=== PATIENT | female | born 1990 | race Caucasian/White ===

== ENCOUNTER 2017-06-18 06:55 | Emergency (ER) | payer MEDICAID ==
[2017-06-18] MEDS ORDERED: BUPIVACAINE 0.5% PF 30 ML VIAL SUBQ STA (07:22)
[2017-06-18] MEDS ORDERED: BUPIVACAINE 0.5% PF 30 ML VIAL ONE ×2 (07:27→07:29)
--- NOTE | 2017-06-18 07:40 | ED Physician Documentation ---
History of Present Illness - Stated complaint Stated Complaint: SHOULDER PX - Chief complaint Chief Complaint: Ext Problem - Additonal information Additional information: hx from pt 26 f hx recurrent L shoulder dislocations awoke this AM with L shoulder dislocation no trauma no other concerns pmhx asthma all depakote denies preg NPO since last night Review of Systems : denies: Now EGA Musculoskeletal: reports: Joint pain PD PAST MEDICAL HISTORY - Present Medications Home Medications: Ambulatory Orders Medication Instructions Recorded Confirmed Ibuprofen [Motrin] 400 mg PO Q6H PRN #30 tablet 06/18/17 - Allergies Allergies/Adverse Reactions: Allergies Allergy/AdvReac Type Severity Reaction Status Date / Time divalproex sodium Allergy Hives Verified 06/18/17 07:00 [From Depakote] PD ED PE NORMAL - Vitals Vital signs reviewed: Yes - General General: Alert and oriented X 3, Other (crying in pain) - Cardiac Cardiac: RRR - Respiratory Respiratory: No respiratory distress, Clear bilaterally - Derm Derm: Normal color, Other (appears to have adhesive from recent IV in L AC) - Extremities Extremities: Other (step off L shoulder and palpable humeral head anterior, dec sensation to lat deltoid region which is new, rest of arm nl sensaton, string radial and ulnar pulses, + motor) - Neuro Neuro: Alert and oriented X 3, No motor deficit. No: No sensory deficit ( deltoid rgion dec sensation not new with this dislocation per pt) Results - Vitals Vitals: Vital Signs - 24 hr 06/18/17 06/18/17 06/18/17 06:58 09:11 09:15 Temperature 36.1 C L Heart Rate 85 59 L 66 Respiratory 22 16 17 Rate Blood Pressure 122/76 117/77 O2 Saturation 100 100 06/18/17 06/18/17 06/18/17 09:16 09:20 09:25 Temperature Heart Rate 69 63 68 Respiratory 12 19 13 Rate Blood Pressure 116/78 107/71 108/77 O2 Saturation 100 100 100 06/18/17 06/18/17 09:35 09:47 Temperature Heart Rate 62 65 Respiratory 12 14 Rate Blood Pressure 123/86 H 118/84 H O2 Saturation 100 100 Oxygen O2 Source Room air - Rads (name of study) L shoulder Radiology: See rad report (ant dislocation no fx) L shoulder 2 Radiology: See rad report (reduced, no fracture, hill sachs) Procedures - Reduction Body part reduced: Left, Shoulder Fracture or dislocation: Dislocation Anesthesia: Hematoma block, Dilaudid, Propofol Shoulder reduction technique: Traction - counter tract Reduction aftercare: NV intact (as before she has dec sensation to lateral deltoid but that was pre-existing and not new with this dislocation), Xray confirms reduction, Alignment improved, Sling, Patient tolerated well - Procedural sedation Sedation prep: Informed consent, Time out completed, Last meal, PE performed, AHA 1 - healthy, IV O2 monitor, ET CO2 monitor, RT present Sedation medications: dilaudid, propofol, given by MD Patient status during sedation: Responds to tactile, Vitals remained stable, Maintained airway, Recovered uneventfully Sedation recovery: Recovered uneventfully PD MEDICAL DECISION MAKING - ED course ED course: intra-articualr marcaine 0.5% 10 cc under sterile prep with inadequate relief gave dilaudid as well despite adequate pain control pt highly anxious and not able/willing to try reduction without sedation Departure - Departure Disposition: 01 Home, Self Care Clinical Impression: Shoulder dislocation, recurrent Qualifiers: Laterality: left Qualified Code(s): M24.412 - Recurrent dislocation, left shoulder Condition: Good Instructions: ED Dislocation Shoulder Redu, ED Sling Follow-Up: [facility] [Provider Group] Prescriptions: Ibuprofen [Motrin] 400 mg PO Q6H PRN #30 tablet PRN Reason: Pain Comments: The shoulder is back in joint. The long acting anesthetic I injected into your shoulder should help with the pain. You can also take motrin and tylenol and apply ice Wear the sling to prevent dislocating again - but be sure to do some easy range of motion pendulum circles as show to prevent scar tissue forming in your shoulder. You have some numbness to the outside of your shoulder indicates you my have nerve damage from your recurrent dislocations. Also there is a deformity to the shoulder bone called a HillSachs injury likely due to your recurrent dislocations as well Please follow up with orthopedics for further care
[2017-06-18] MEDS ORDERED: HYDROmorphone 1 MG/ML SYRINGE IM STA (07:44)
[2017-06-18] MEDS ORDERED: ONDANSETRON 4 MG/2 ML VIAL IM STA (07:45)
--- NOTE | 2017-06-18 07:57 | XRAY Preliminary Report ---
Exam: XR SHOULDER 2 VIEW LT IMPRESSION: Anterior inferior left humeral head dislocation. [facility] SITE ID: [id number]
--- NOTE | 2017-06-18 08:00 | XRAY Report ---
EXAM: LEFT SHOULDER RADIOGRAPHY EXAM DATE: 06/18/2017 07:43 AM. CLINICAL HISTORY: Recurrent dislocation. COMPARISON: None. TECHNIQUE: 2 views. FINDINGS: Bones: No fracture or bone lesion. Joints: The acromioclavicular joint is anatomically aligned. There is an anterior inferior dislocati on of the left humeral head with respect to the glenoid. Soft tissues: The included hemithorax is unremarkable. No soft tissue calcification IMPRESSION: Anterior inferior left humeral head dislocation. [facility] Referring Provider Line: [phone] SITE ID: [id number]
[2017-06-18] MEDS ORDERED: PROPOFOL 200 MG/20 ML VIAL IVP STA ×2 (08:39→10:00)
[2017-06-18 09:48] VITALS: BP 118/84
--- NOTE | 2017-06-18 10:07 | XRAY Preliminary Report ---
Exam: XR SHOULDER 1 VIEW LT IMPRESSION: 1. Anatomic alignment of the left shoulder status post reduction. 2. Hill-Sachs deformity. [facility] SITE ID: [id number]
--- NOTE | 2017-06-18 10:10 | XRAY Report ---
EXAM: LEFT SHOULDER RADIOGRAPHY EXAM DATE: 06/18/2017 09:40 AM. CLINICAL HISTORY: Post reduction. COMPARISON: Left shoulder radiograph dated 06/18/2017. TECHNIQUE: 3 views. FINDINGS: Bones: Cortical defect along the posterior margin of the left humeral head. Joints: The glenohumeral and acromioclavicular joints are normal. Soft tissues: The visualized hemithorax is unremarkable. No soft tissue swelling. IMPRESSION: 1. Anatomic alignment of the left shoulder status post reduction. 2. Hill-Sachs deformity. [facility] Referring Provider Line: [phone] SITE ID: [id number]
== END 2017-06-18 10:55 | disposition home or self-care (01) ==
LOC: ED 06:55
DX: M24.412 Recurrent dislocation, left shoulder (principal)
CPT/HCPCS: 23650; 73020; 73030; 94770; 96372; 99283; J1170

== ENCOUNTER 2017-07-17 07:55 | Emergency (ER) | payer MEDICAID ==
[2017-07-17 08:27] LABS: BILIRUBIN,URINE NEGATIVE (NEGATIVE); GLUCOSE, URINE (UA) NEGATIVE (NEGATIVE); KETONES,URINE (UA) NEGATIVE (NEGATIVE); LEUKOCYTE ESTERASE, URINE MODERATE (NEGATIVE); NITRITE,URINE POSITIVE (NEGATIVE); OCCULT BLOOD,URINE MODERATE (NEGATIVE); PH,URINE 6.5 PH (5.0-7.5); PROTEIN,URINE 30 mg/dL (NEGATIVE); UROBILINOGEN,URINE 1 (NORMAL) E.U./dL (NORMAL)
[2017-07-17 08:30] LABS: CLARITY,URINE CLOUDY (CLEAR); HCG UR QUAL NEGATIVE
[2017-07-17] MEDS ORDERED: CYCLOBENZAPRINE 10 MG TABLET PO STA (08:38)
[2017-07-17] MEDS ORDERED: cephALEXin 250 MG CAPSULE PO STA (08:38)
[2017-07-17] MEDS ORDERED: LIDOCAINE PATCH 5% TOP STA (08:38)
--- NOTE | 2017-07-17 08:41 | ED Physician Documentation ---
History of Present Illness - Stated complaint Stated Complaint: BACK PX - Chief complaint Chief Complaint: Back Pain - Additonal information Additional information: hx from pt 26 y/o f seen a few weeks ago for shoulder dislocation since then has been using her right arm primarily and so her back has been strained and stressed and she has painful burning to huong trap region extending down huong back no numbness no weakness no saddle anesthesia took elder s relief no incont also has UTI sx + R kidney pain s fever chills -and took two of a friends ab already Review of Systems Constitutional: denies: Fever, Chills Cardiac: denies: Chest pain / pressure Respiratory: denies: Dyspnea GI: denies: Abdominal Pain, Nausea, Vomiting : denies: Incontinent, Now EGA Musculoskeletal: reports: Back pain Neurologic: denies: Focal weakness, Numbness PD PAST MEDICAL HISTORY - Past Medical History Respiratory: Asthma Psych: Depression, Post traumatic stress disorder Musculoskeletal: Other - Past Surgical History Past Surgical History: Yes Ortho: Other - Present Medications Home Medications: Ambulatory Orders Medication Instructions Recorded Confirmed Carisoprodol [Soma] 350 mg PO Q8H PRN #15 tablet 07/17/17 Cephalexin [Keflex] 500 mg PO Q6H #28 capsule 07/17/17 Lidocaine Patch 5% [Lidoderm Patch] 1 each TOP DAILY PRN #10 patch 07/17/17 - Allergies Allergies/Adverse Reactions: Allergies Allergy/AdvReac Type Severity Reaction Status Date / Time divalproex sodium Allergy Hives Verified 07/17/17 08:02 [From [facility]] - Social History Does the pt smoke?: Yes Smoking Status: Current every day smoker Does the pt drink ETOH?: No Does the pt have substance abuse?: Yes Substance Use and Type: Marijuana - Immunizations Immunizations are current?: No PD ED PE NORMAL - Vitals Vital signs reviewed: Yes - Neck Neck: Supple, no meningeal sign - Cardiac Cardiac: RRR - Respiratory Respiratory: No respiratory distress, Clear bilaterally - Abdomen Abdomen: Soft, Non tender - Back Back: No spinal TTP, Other (diffuse soft tissue TTP and limityed ROm 2/2 same, no focal spine TTP redness or swelling). No: No CVA TTP (R CVA TTP) - Derm Derm: Normal color - Neuro Neuro: Alert and oriented X 3, scientific recruiter 2-12 intact, No motor deficit, No sensory deficit, Other (hip flex knee ext foot dorsi plantar and great toe ext all 5/5, denies saddle anesthesia, patellar DTR 1/4 huong, no clonus neg SLR huong) Results - Vitals Vitals: Vital Signs - 24 hr 07/17/17 07/17/17 07:57 08:50 Temperature 36.4 C L 36.5 C Heart Rate 94 95 Respiratory 16 18 Rate Blood Pressure 124/77 115/80 O2 Saturation 100 100 Oxygen O2 Source Room air - Labs Labs: Laboratory Tests 07/17/17 08:13 Urine Color YELLOW Urine Clarity CLOUDY Urine pH 6.5 Ur Specific [place] 1.020 Urine Protein 30 H Urine Glucose (UA) NEGATIVE Urine Ketones NEGATIVE Urine Occult Blood MODERATE H Urine Nitrite POSITIVE H Urine Bilirubin NEGATIVE Urine Urobilinogen 1 (NORMAL) Ur Leukocyte Esterase MODERATE H Urine RBC 6-10 H Urine WBC >25 H Ur Squamous Epith Cells RARE Squamous Urine Bacteria Moderate H Ur Microscopic Review INDICATED Urine Culture Comments INDICATED Urine HCG, Qual NEGATIVE PD MEDICAL DECISION MAKING - ED course ED course: few RBC on UA as well as infection - just finished menses - pain not c/w renal colic Departure - Departure Disposition: Home, Self Care Clinical Impression: Back pain Qualifiers: Back pain location: back pain in unspecified location Chronicity: acute Back pain laterality: bilateral Qualified Code(s): M54.9 - Dorsalgia, unspecified UTI (urinary tract infection) Qualifiers: Urinary tract infection type: acute pyelonephritis Qualified Code(s): N10 - Acute pyelonephritis Condition: Good Instructions: ED Neck Back Pain General, ED Kidney Infec Female Prescriptions: Carisoprodol [Soma] 350 mg PO Q8H PRN #15 tablet PRN Reason: muscle spasm Cephalexin [Keflex] 500 mg PO Q6H #28 capsule Lidocaine Patch 5% [Lidoderm Patch] 1 each TOP DAILY PRN #10 patch PRN Reason: Pain Comments: Drink plenty of fluids Take all the antibiotics as prescribed A urine culture will be run - if you need to be changed to another antibiotic, the ER staff will call you. Please follow up with your PMD for a repeat urine test after completing the antibiotics to be sure all the infection has cleared
[2017-07-17 08:48] LABS: BACTERIA,URINE Moderate /HPF (None Seen); SQUAMOUS EPITHELIAL CELL,UR RARE Squamous (<= Few)
[2017-07-17 08:52] VITALS: BP 115/80
== END 2017-07-17 09:11 | disposition home or self-care (01) ==
LOC: ED 07:55
DX: N10 Acute pyelonephritis (principal); M54.6 Pain in thoracic spine; J45.909 Unspecified asthma, uncomplicated; F17.200 Nicotine dependence, unspecified, uncomplicated
CPT/HCPCS: 81001; 81025; 87086; 99283; 99284; A9270; 81003

== ENCOUNTER 2017-09-07 09:58 | Emergency (ER) | payer MEDICAID ==
[2017-09-07 10:11] VITALS: BP 124/72
[2017-09-07] MEDS ORDERED: oxyCOD/ACETAMIN 5 MG/325 MG TABLET PO STA (10:55)
--- NOTE | 2017-09-07 10:57 | ED Physician Documentation ---
History of Present Illness - Stated complaint Stated Complaint: TOOTH PX/FEMALE - Chief complaint Chief Complaint: Heent - Additonal information Additional information: hx from pt 27 female denies preg 2 days s/p wisdom tooth removal on antibiotics and motrin states pain has been severe no fever states cannot go back to see her oral surgeon for the pain because she has state insurance Review of Systems Constitutional: denies: Fever Throat: reports: Dental pain / toothache PD PAST MEDICAL HISTORY - Past Medical History Respiratory: Asthma Psych: Depression, Post traumatic stress disorder Musculoskeletal: Other - Past Surgical History Past Surgical History: Yes Ortho: Other - Present Medications Home Medications: Ambulatory Orders Medication Instructions Recorded Confirmed Carisoprodol [Soma] 350 mg PO Q8H PRN #15 tablet 07/17/17 Cephalexin [Keflex] 500 mg PO Q6H #28 capsule 07/17/17 Lidocaine Patch 5% [Lidoderm Patch] 1 each TOP DAILY PRN #10 patch 07/17/17 HYDROcod/ACETAM 5/325 [Hull 5/325] 1 ea PO Q6H PRN #10 tablet 09/07/17 - Allergies Allergies/Adverse Reactions: Allergies Allergy/AdvReac Type Severity Reaction Status Date / Time divalproex sodium Allergy Hives Verified 07/17/17 08:02 [From [facility]] - Social History Does the pt smoke?: Yes Smoking Status: Current every day smoker Does the pt drink ETOH?: No Does the pt have substance abuse?: Yes - Immunizations Immunizations are current?: No PD ED PE NORMAL - Vitals Vital signs reviewed: Yes - HEENT HEENT: Other (no trsimus, + huong mild to mod facial swelling as expected s/p wisdom removal, diff to see to base of extraction side but does not seem to be a dry socket, no drainage, no sublingual swelling) - Cardiac Cardiac: RRR - Respiratory Respiratory: No respiratory distress, Clear bilaterally Results - Vitals Vitals: Vital Signs - 24 hr 09/07/17 10:09 Temperature 37.3 C Heart Rate 100 Respiratory 18 Rate Blood Pressure 124/72 O2 Saturation 100 Oxygen O2 Source Room air Departure - Departure Disposition: 01 Home, Self Care Clinical Impression: Status post third molar tooth extraction Condition: Good Prescriptions: HYDROcod/ACETAM 5/325 [Hull 5/325] 1 ea PO Q6H PRN #10 tablet PRN Reason: Severe Pain Comments: Continue the antibiotics Continue to motrin May take vicodin sparingly as needed for severe pain. Please call your oral surgeon to let him/her know about your pain - they may want to see you in the office to be sure there is not a complication of surgery Discharge Date/Time: 09/07/17 11:24
== END 2017-09-07 11:24 | disposition home or self-care (01) ==
LOC: ED 09:58
DX: K08.89 Other specified disorders of teeth and supporting structures (principal); F17.200 Nicotine dependence, unspecified, uncomplicated; Z98.890 Other specified postprocedural states
CPT/HCPCS: 99283; A9270

== ENCOUNTER 2018-05-01 11:25 | Emergency (ER) | payer MEDICAID ==
[2018-05-01 11:37] VITALS: BP 138/89
== END 2018-05-01 13:30 | disposition left against medical advice (07) ==
LOC: ED 11:25
DX: Z53.21 Procedure and treatment not carried out due to patient leaving prior to being seen by health care provider (principal)

== ENCOUNTER 2018-05-02 10:30 | Emergency (ER) | payer MEDICAID ==
[2018-05-02 10:38] VITALS: BP 129/88
--- NOTE | 2018-05-02 11:38 | XRAY Report ---
Reason: pain. Procedure Date: 05/02/2018 Accession Number: [id number] / [id number] Procedure: XR - Ankle 3 View LT CPT Code: FULL RESULT: EXAM: LEFT ANKLE RADIOGRAPHY EXAM DATE: 05/02/2018 11:32 AM. CLINICAL HISTORY: Pain. Fall one month ago. COMPARISON: None. TECHNIQUE: 3 views. FINDINGS: Bones: No fractures or acute bone lesions. Rounded ossification adjacent to the tip of the fibula is consistent with a chronic, developmental ossicle. Joints: Normal. No effusion. No subluxations. The ankle mortise is normally aligned. Soft Tissues: Normal. No soft tissue swelling. IMPRESSION: Negative ankle radiography. [facility]
--- NOTE | 2018-05-02 12:12 | ED Physician Documentation ---
PD HPI LOWER EXT INJURY - Stated complaint Stated Complaint: ANKLE PX - Chief complaint Chief Complaint: Ext Problem - History obtained from History obtained from: Patient - History of Present Illness PD HPI LOW EXT INJURY LOCATION: Left, Ankle Type of injury: Twist Timing - onset: How many weeks ago (4) Timing - details: Still present Worsened by: Other (weight bearing) - Additional information Additional information: The patient is a 27-year-old female who twisted her left ankle about 4 weeks ago when she stepped in a hole with boots on. She presents now because of persistent pain at the posterior aspect of her ankle. The pain is worse with weightbearing. She states that her ankle sometimes gets swollen. She denies history of similar symptoms in the past. Review of Systems Constitutional: denies: Fever Musculoskeletal: reports: Joint pain (left posterior ankle.). denies: Back pain Neurologic: denies: Focal weakness, Numbness, Headache PD PAST MEDICAL HISTORY - Past Medical History Respiratory: Asthma Endocrine/Autoimmune: None Psych: Depression, Post traumatic stress disorder Musculoskeletal: Other - Past Surgical History Past Surgical History: Yes Ortho: Other - Present Medications Home Medications: Ambulatory Orders Medication Instructions Recorded Confirmed No Known Home Medications 05/01/18 05/01/18 - Allergies Allergies/Adverse Reactions: Allergies Allergy/AdvReac Type Severity Reaction Status Date / Time divalproex sodium Allergy Hives Verified 05/02/18 10:38 [From Depakote] - Social History Does the pt smoke?: Yes Smoking Status: Current every day smoker Does the pt drink ETOH?: No Does the pt have substance abuse?: Yes - Immunizations Immunizations are current?: Yes PD ED PE NORMAL - Vitals Vital signs reviewed: Yes (normal) - General General: Alert and oriented X 3, Well developed/nourished - HEENT HEENT: Atraumatic - Respiratory Respiratory: No respiratory distress - Back Back: No spinal TTP - Derm Derm: No rash - Extremities Extremities: No deformity, No edema, No calf tenderness / cord, Other (There is tenderness to palpation over the distal Achilles tendon, without tenderness defect palpated. There is no discoloration, and distal neurovascular is intact.) - Neuro Neuro: Alert and oriented X 3, No motor deficit, No sensory deficit Results - Vitals Vitals: Oxygen O2 Source Room air - Rads (name of study) Left ankle Radiology: Prelim report reviewed, EMP read contemporaneously, See rad report (Normal ankle radiography.) PD MEDICAL DECISION MAKING - ED course Complexity details: reviewed old records, reviewed results, re-evaluated patient, considered differential, d/w patient ED course: The patient's presentation is most consistent with a left Achilles tendon sprain. X-ray of the ankle reveals no bony abnormality. The Achilles tendon is intact with no evidence of rupture. Treatment in the emergency department included application of an ankle air splint. I discussed with her the expected course of healing, symptomatic treatment and outpatient follow-up, as well as potentially worrisome signs or symptoms that should prompt reevaluation in the emergency department. Departure - Departure Disposition: 01 Home, Self Care Clinical Impression: Strain of left Achilles tendon Qualifiers: Encounter type: initial encounter Qualified Code(s): S86.012A - Strain of left Achilles tendon, initial encounter Condition: Stable Instructions: ED Sprain Ankle Comments: Use the air splint if it provides comfort. Keep your left leg elevated as much the time as possible. You can use Tylenol or ibuprofen for anti-inflammatory effect. Follow-up with a primary physician, or return to the emergency department if you develop increasing pain or swelling of your ankle, or otherwise worsening symptoms. Discharge Date/Time: 05/02/18 12:24
== END 2018-05-02 12:24 | disposition home or self-care (01) ==
LOC: ED 10:30
DX: F17.200 Nicotine dependence, unspecified, uncomplicated (principal); S86.012A Strain of left Achilles tendon, initial encounter; X50.1XXA Overexertion from prolonged static or awkward postures, initial encounter; W18.42XA Slipping, tripping and stumbling without falling due to stepping into hole or opening, initial encounter
CPT/HCPCS: 99282; 99283

== ENCOUNTER 2018-06-14 08:00 | Outpatient (CLI) | payer MEDICAID | END 2018-06-14 23:59 | disposition home or self-care (01) | LOC: LAB.R 08:00 | PROVIDERS: ATTEND Nurse Practitioner Obstetrics & Gynecology | DX: Z36.89 Encounter for other specified antenatal screening (principal) | CPT/HCPCS: 87491; 87591 ==

== ENCOUNTER 2018-06-15 12:42 | Outpatient (CLI) | payer MEDICAID ==
--- NOTE | 2018-06-16 11:29 | Ultrasound Report ---
Reason: TEST POSITIVE Procedure Date: 06/15/2018 Accession Number: [id number] / [id number] Procedure: US - OB First Trimester CPT Code: FULL RESULT: EXAM: FIRST TRIMESTER OBSTETRIC ULTRASOUND (Less than 11 weeks) EXAM DATE: 06/15/2018 01:16 PM. CLINICAL HISTORY: TEST POSITIVE. LMP: 04/02/2018. COMPARISONS: None. TECHNIQUE: Transabdominal and transvaginal ultrasound examination with static image documentation. CLINICAL DATES: EGA 10 weeks 4 days with JAMIR 01/07/2019 based on LMP. ASSESSMENT: Gestational Sac: Single intrauterine. Embryo: CRL (crown-rump length) 28.2 mm = 9 weeks 5 days. Cardiac activity: 169 beats per minute. Yolk sac: None detected mm. Amniotic fluid: Not accurately assessed at this gestational age. Early placenta: Not visible at this gestational age. Other: No perigestational fluid collection demonstrated. MATERNAL STRUCTURES: Uterus: Anteverted. Unremarkable. Cervix: Closed. Right Ovary/Adnexa: Ovary not seen. No adnexal abnormality. Limitation secondary to bowel gas. Left Ovary/Adnexa: The ovary measures 3.5 x 2.8 x 2.4 cm, volume 4.2 cc. Unremarkable. Free Fluid: None. Other: None. IMPRESSION: 1. Single viable intrauterine at EGA 9 weeks 5 days with JAMIR 01/13/2019 based on crown-rump length, which is concordant with clinical dates. 2. Assigned dating is JAMIR 01/07/2019 based on LMP. 3. No complications such as a subchorionic hemorrhage. 4. Normal left ovary. Right ovary not seen. Otherwise, both adnexa are normal. [facility]
== END 2018-06-15 12:43 | disposition home or self-care (01) ==
LOC: DI 12:42
PROVIDERS: ATTEND Nurse Practitioner Obstetrics & Gynecology
DX: Z32.01 Encounter for pregnancy test, result positive (principal)
CPT/HCPCS: 76801

== ENCOUNTER 2018-09-06 07:47 | Emergency (ER) | payer MEDICAID ==
--- NOTE | 2018-09-06 08:43 | ED Physician Documentation ---
PD HPI URI - Stated complaint Stated Complaint: FLU LIKE SYMPTOMS - Chief complaint Chief Complaint: Resp - History obtained from History obtained from: Patient - History of Present Illness Timing - onset: How many days ago (4) Timing duration: Days (4) Timing details: Still present Associated symptoms: Nasal congestion, Sore throat, Productive cough Contributing factors: Sick contact (son) - Additional information Additional information: The patient is a 22-year-old female at 6 months gestation, who presents with cough of 4 days duration. Her cough is productive of sputum, and she reports associated shortness of breath. She complains of congestion, sore throat, and bilateral earaches. She denies fever, abdominal pain, nausea or vomiting. Her son has been sick with similar symptoms. She has not had a flu vaccination this year. Review of Systems Constitutional: denies: Fever Eyes: denies: Irritation Ears: reports: Ear pain Nose: reports: Congestion Throat: reports: Sore throat Cardiac: denies: Chest pain / pressure Respiratory: reports: Dyspnea, Cough GI: denies: Abdominal Pain, Nausea, Vomiting : reports: Now EGA (6 months gestation.). denies: Dysuria Skin: denies: Rash Musculoskeletal: denies: Back pain, Extremity pain Neurologic: denies: Headache PD PAST MEDICAL HISTORY - Past Medical History Respiratory: Asthma Endocrine/Autoimmune: None Psych: Depression, Post traumatic stress disorder Musculoskeletal: Other - Past Surgical History Past Surgical History: Yes Ortho: Other - Present Medications Home Medications: Ambulatory Orders Medication Instructions Recorded Confirmed Albuterol Oral Soln 09/06/18 Albuterol Sulf [Ventolin Hfa 1 - 2 puffs INH Q4HR PRN #1 inhaler 09/06/18 Inhaler] Benzonatate [Tessalon Perle] 100 - 200 mg PO TID PRN #30 capsule 09/06/18 - Allergies Allergies/Adverse Reactions: Allergies Allergy/AdvReac Type Severity Reaction Status Date / Time divalproex sodium Allergy Hives Verified 09/06/18 08:10 [From [facility]] - Social History Does the pt smoke?: Yes Smoking Status: Current every day smoker Does the pt drink ETOH?: No Does the pt have substance abuse?: Yes - Immunizations Immunizations are current?: Yes PD ED PE NORMAL - Vitals Vital signs reviewed: Yes (normal) - General General: Alert and oriented X 3, Well developed/nourished - HEENT HEENT: Atraumatic, Other (Mild vascular injection of TM's bilaterally, without bulging or fluid. Enlarged tonsils bilaterally, without exudates.) - Neck Neck: Supple, no meningeal sign, Other (Mildly enlarged anterior cervical nodes bilaterally.) - Cardiac Cardiac: RRR, No murmur - Respiratory Respiratory: Other (Inspiratory and expiratory wheezing bilaterally.) - Abdomen Abdomen: Soft, Non tender, Other (Gravid uterus, consistent with dates.) - Back Back: No CVA TTP - Derm Derm: No rash - Extremities Extremities: No edema, No calf tenderness / cord - Neuro Neuro: Alert and oriented X 3, No motor deficit, Normal speech Results - Vitals Vitals: Oxygen O2 Source Room air - Labs Labs: Laboratory Tests 09/06/18 08:50 Influenza A (Rapid) Negative Influenza B (Rapid) Negative PD MEDICAL DECISION MAKING - ED course Complexity details: reviewed results, re-evaluated patient, considered differential, d/w patient ED course: The patient's presentation is most consistent with acute asthmatic bronchitis. Her presentation does not suggest pneumonia, and I doubt pulmonary embolus. Influenza swab is negative. Treatment in the emergency department included DuoNeb nebulizer, which decreased her wheezing and improved her air movement. She is being discharged with prescriptions for albuterol inhaler and for Tessalon. I discussed with her the expected course of illness, symptomatic treatment and outpatient follow-up, as well as potentially worrisome signs or symptoms that should prompt reevaluation in the emergency department. Departure - Departure Disposition: 01 Home, Self Care Clinical Impression: Asthmatic bronchitis Qualifiers: Asthma severity: unspecified severity Asthma persistence: unspecified Asthma complication type: with acute exacerbation Qualified Code(s): J45.901 - Unspecified asthma with (acute) exacerbation Condition: Stable Instructions: ED Bronchitis Asthmatic Follow-Up: [facility] [Provider Group] Prescriptions: Albuterol Sulf [Ventolin Hfa Inhaler] 1 - 2 puffs INH Q4HR PRN #1 inhaler PRN Reason: Shortness Of Air/Wheezing Benzonatate [Tessalon Perle] 100 - 200 mg PO TID PRN #30 capsule PRN Reason: Cough Comments: Try to stop smoking cigarettes. Use albuterol 4 times daily as prescribed if needed for cough or wheezing. You can use Tessalon as prescribed if needed for cough. You can use ibuprofen, up to 800 mg 3 times daily for its anti-inflammatory effect. Follow-up with primary physician within 2 weeks. Call to schedule an appointment. Return to the emergency department if you develop increasing difficulty breathing, or otherwise worsening symptoms. Discharge Date/Time: 09/06/18 10:33
[2018-09-06] MEDS ORDERED: IPRATROPIUM/ALBUTEROL 3 ML NEB INH STA (08:45)
[2018-09-06 10:38] VITALS: BP 111/57
== END 2018-09-06 10:33 | disposition home or self-care (01) ==
LOC: ED 07:47
DX: O99.512 Diseases of the respiratory system complicating pregnancy, second trimester (principal); J45.901 Unspecified asthma with (acute) exacerbation; O99.332 Smoking (tobacco) complicating pregnancy, second trimester; Z3A.00 Weeks of gestation of pregnancy not specified
CPT/HCPCS: 87275; 87276; 94640; 99283

== ENCOUNTER 2018-09-10 16:05 | Outpatient (CLI) | payer MEDICAID ==
--- NOTE | 2018-09-11 10:52 | Ultrasound Report ---
Reason: ENCOUNTER FOR SCREENING,UNSPECIFIED Procedure Date: 09/10/2018 Accession Number: [id number] / [id number] Procedure: US - OB Detailed Eval CPT Code: FULL RESULT: EXAM: COMPLETE OBSTETRICAL ULTRASOUND EXAM DATE: 09/10/2018 06:00 PM. CLINICAL HISTORY: anatomic survey. COMPARISON: OB FIRST TRIMESTER 06/15/2018 1:16 PM. TECHNIQUE: Real-time sonographic evaluation of the fetus performed by the slitter operator. Multiple brand representative static images were saved for review. DATING: Established EGA 23 weeks 0 days with JAMIR 01/07/2019 based on last menstrual period. EGA 22 weeks 1 day with JAMIR 01/13/2019 based on prior ultrasound of 06/15/2018. EGA 21 weeks 5 days with JAMIR 01/16/2019 based on the current ultrasound. GENERAL EVALUATION Burch . Cardiac activity: 161 bpm. movement: Visualized. Presentation: Variable Placenta: Anterior position. No evidence for previa. Umbilical cord: 3 vessel cord. Central placental cord origin. Amniotic fluid: Subjectively normal. MVP 7 cm. BIOMETRY Bi-Parietal Diameter (BPD): 5.37 cm, 22 weeks 2 days Head Circumference (HC): 19.4 cm, 21 weeks 5 days Abdominal Circumference (AC): 17.2 cm, 22 weeks 1 day Femur Length (FL): 3.4 cm, 20 weeks 5 days Estimated Weight: 434 g, 4th percentile for assigned dating of 23 weeks 0 days based on last menstrual period. ANATOMY The intracranial structures, profile, face/nose/lips, spine, 4 chamber heart and outflow tracts, stomach, abdominal wall and cord insertion, diaphragm, kidneys, bladder, and extremities were visualized and demonstrate no abnormality. MATERNAL STRUCTURES Uterus: Unremarkable. Cervix: Long and closed. Transabdominal length 4.3 cm. Right ovary/adnexa: Unremarkable. Left ovary/adnexa: Unremarkable. Free fluid: None. IMPRESSION: 1. Burch live intrauterine with gestational age 23 weeks 0 days based on last menstrual period. 2. Estimated weight is at the 4th percentile for the assigned dating. Note: Estimated weight is at the 14th percentile using biometry of first ultrasound of 06/15/2018 (JAMIR 01/13/2019), suggesting EFW discrepancy with LMP may be due to incorrect dates. Consider follow-up exam in 6 to 8 weeks to confirm concordant interval growth. 3. Normal anatomic survey. No anatomic abnormalities are detected at this time. RADIA
== END 2018-09-10 16:06 | disposition home or self-care (01) ==
LOC: DI 16:05
PROVIDERS: ATTEND Nurse Practitioner Obstetrics & Gynecology
DX: Z36.9 Encounter for antenatal screening, unspecified (principal); Z3A.23 23 weeks gestation of pregnancy
CPT/HCPCS: 76811

== ENCOUNTER 2018-09-11 08:00 | Outpatient (CLI) | payer MEDICAID ==
[2018-09-11 19:04] LABS: BILIRUBIN,URINE NEGATIVE (NEGATIVE); GLUCOSE, URINE (UA) NEGATIVE (NEGATIVE); KETONES,URINE (UA) NEGATIVE (NEGATIVE); LEUKOCYTE ESTERASE, URINE NEGATIVE (NEGATIVE); NITRITE,URINE NEGATIVE (NEGATIVE); OCCULT BLOOD,URINE NEGATIVE (NEGATIVE); PH,URINE 6.5 PH (5.0-7.5); PROTEIN,URINE NEGATIVE (NEGATIVE); UROBILINOGEN,URINE 0.2 (NORMAL) E.U./dL (NORMAL)
[2018-09-11 19:07] LABS: CLARITY,URINE CLEAR (CLEAR)
[2018-09-11 19:19] LABS: BASOPHILS % (AUTO) 0.3 %; EOSINOPHILS # (AUTO) 0.2 10^3/uL (0.0-0.7); LYMPHOCYTES # (AUTO) 2.1 10^3/uL (1.5-3.5); LYMPHOCYTES % (AUTO) 18.6 %; MEAN CORPUSCULAR HEMOGLOBIN 32.3 pg (27.0-31.0); MEAN CORPUSCULAR HGB CONC 34.4 g/dL (32.0-36.0); MEAN CORPUSCULAR VOLUME 93.8 fL (81.0-99.0); MEAN PLATELET VOLUME 8.8 fL (7.9-10.8); MONOCYTES # (AUTO) 0.6 10^3/uL (0.0-1.0); MONOCYTES % (AUTO) 5.7 %; NEUTROPHILS # (AUTO) 8.3 10^3/uL (1.5-6.6); NEUTROPHILS % (AUTO) 73.4 %; PLT - PLATELET COUNT 360 10^3/uL (130-450); RED BLOOD COUNT 3.08 10^6/uL (4.20-5.40); RED CELL DISTRIBUTION WIDTH 13.1 % (12.0-15.0); WHITE BLOOD COUNT 11.3 x10^3/uL (4.8-10.8)
[2018-09-12 13:08] LABS: HEPATITIS B SURFACE ANTIGEN NON-REACTIVE (NON-REACTIVE)
[2018-09-12 15:05] LABS: HEPATITIS C ANTIBODY NON-REACTIVE (NON-REACTIVE); HIV AG/AB 4TH GEN NON-REACTIVE (NON-REACTIVE)
== END 2018-09-11 23:59 | disposition home or self-care (01) ==
LOC: LAB.N 08:00
PROVIDERS: ATTEND Nurse Practitioner Obstetrics & Gynecology
DX: Z36.89 Encounter for other specified antenatal screening (principal)
CPT/HCPCS: 36415; 81001; 81003; 81599; 82950; 85025; 86592; 86762; 86803; 86850; 86900; 86901; 87086; 87340; 87389

== ENCOUNTER 2018-11-11 10:52 | Outpatient (CLI) | payer MEDICAID ==
[2018-11-11] MEDS ORDERED: RHO(D) IMMUNE GLOBULIN 300 MCG SYRINGE IM SCH (11:05)
[2018-11-11 11:09] VITALS: BP 129/72
--- NOTE | 2018-11-11 12:39 | Ultrasound Report ---
Reason: Previous US with baby at the 4th % for size Procedure Date: 11/11/2018 Accession Number: [id number] / [id number] Procedure: US - OB F/U or Repeat CPT Code: FULL RESULT: EXAM: FOLLOW-UP OBSTETRICAL ULTRASOUND EXAM DATE: 11/11/2018 11:28 AM. CLINICAL HISTORY: Previous US with baby at the 4th percentage for size. COMPARISON: Obstetrical ultrasound 09/10/2018 and 06/15/2019. TECHNIQUE: Real-time sonographic evaluation of the fetus performed by the correctional substance abuse counselor. Additional transvaginal imaging to more accurately evaluate cervical length/placental position/etc. Multiple entry level sales representative static images were saved for review. DATING: EGA 31 weeks, 6 days with JAMIR 01/07/2019 based on LMP. EGA 31 weeks/0 days with JAMIR 01/13/2019 based on 06/15/2018 ultrasound. EGA 30 weeks/4 days with JAMIR 01/16/2019 based on 09/10/2018 ultrasound. EGA 31 weeks/3 days with JAMIR 01/10/2019 based on the current ultrasound. GENERAL EVALUATION Burch . Cardiac activity: 129 bpm. movement: Visualized. Presentation: Cephalic. Placenta: Anterior position. Amniotic fluid: Normal. OSITO 19.3 cm. MVP 7.9 cm. BIOMETRY Bi-Parietal Diameter (BPD): 8.06 cm, 32 weeks, 2 days Head Circumference (HC): 29.31 cm, 32 weeks, 2 days Abdominal Circumference (AC): 27.99 cm, 32 weeks, 0 days Femur Length (FL): 5.55 cm, 29 weeks, 1 day Estimated Weight: 1729 grams, 22 percentile. ANATOMY No abnormality evident on limited views. MATERNAL STRUCTURES No maternal abnormality evident on ultrasound performed for follow-up of biometry. IMPRESSION: 1. Burch live intrauterine with gestational age 31 weeks, 6 days based on LMP. 2. Estimated weight is within expected limits for assigned dating. 3. Normal interval growth compared to date of prior biometry. Estimated weight is at the 22nd percentile today, previously at 4th percentile on ultrasound 09/10/2018. 4. Normal amniotic fluid volume. RADIA
--- NOTE | 2018-11-16 13:23 | PROCEDURE REPORT ---
- HPI Diagnosis/Indication for NST: Intrauterine growth restriction Current EDU 01/07/19 Gestation 31 Weeks and 6 Days 4 Para 1 Vital Signs Temperature 98.8 F 11/11/18 11:08 Heart Rate 84 11/11/18 11:08 Respiratory Rate 20 11/11/18 11:08 Blood Pressure 129/72 11/11/18 11:08 O2 Saturation 99 11/11/18 11:08 Temperature 98.8 F 11/11/18 11:08 Heart Rate 84 11/11/18 11:08 Respiratory Rate 20 11/11/18 11:08 Blood Pressure 129/72 11/11/18 11:08 O2 Saturation 99 11/11/18 11:08 - NST Procedure NST Procedure Start Date 11/11/18 Start Time 10:57 Stop Time 11:28 Vibroacoustic Stimulation Used No Patient States Movement Yes - Results and Plan Findings/Impression: Category 1 NST, toco neg Plan: Normal NST, got rhogam in triage today, repeat US with EFW 22%ile, got social work consult. F/u in clinic in 2w.
== END 2018-11-11 12:50 | disposition home or self-care (01) ==
LOC: WFO 10:52 → FBP 10:54 → WFO 12:50
PROVIDERS: ATTEND Obstetrics & Gynecology
DX: O36.5930 Maternal care for other known or suspected poor fetal growth, third trimester, not applicable or unspecified (principal); Z3A.31 31 weeks gestation of pregnancy
CPT/HCPCS: 59025; 76816; 96372

== ENCOUNTER 2018-12-08 13:23 | Outpatient (CLI) | payer MEDICAID ==
[2018-12-08 14:26] LABS: BASOPHILS % (AUTO) 0.2 %; EOSINOPHILS # (AUTO) 0.1 10^3/uL (0.0-0.7); EOSINOPHILS % (AUTO) 0.7 %; LYMPHOCYTES # (AUTO) 1.5 10^3/uL (1.5-3.5); LYMPHOCYTES % (AUTO) 8.2 %; MEAN CORPUSCULAR HEMOGLOBIN 32.1 pg (27.0-31.0); MEAN CORPUSCULAR HGB CONC 34.4 g/dL (32.0-36.0); MEAN CORPUSCULAR VOLUME 93.4 fL (81.0-99.0); MEAN PLATELET VOLUME 8.7 fL (7.9-10.8); MONOCYTES # (AUTO) 1.7 10^3/uL (0.0-1.0); MONOCYTES % (AUTO) 9.5 %; NEUTROPHILS # (AUTO) 14.8 10^3/uL (1.5-6.6); NEUTROPHILS % (AUTO) 81.4 %; PLT - PLATELET COUNT 263 10^3/uL (130-450); RED BLOOD COUNT 3.13 10^6/uL (4.20-5.40); RED CELL DISTRIBUTION WIDTH 13.8 % (12.0-15.0); WHITE BLOOD COUNT 18.1 x10^3/uL (4.8-10.8)
[2018-12-08 14:27] LABS: MUDS CUTOFF CONCENTRATIONS CUTOFF CONC BELOW:
[2018-12-08 14:32] LABS: BILIRUBIN,URINE NEGATIVE (NEGATIVE); GLUCOSE, URINE (UA) NEGATIVE (NEGATIVE); KETONES,URINE (UA) NEGATIVE (NEGATIVE); LEUKOCYTE ESTERASE, URINE TRACE (NEGATIVE); NITRITE,URINE NEGATIVE (NEGATIVE); OCCULT BLOOD,URINE NEGATIVE (NEGATIVE); PH,URINE 6.5 PH (5.0-7.5); PROTEIN,URINE NEGATIVE (NEGATIVE); UROBILINOGEN,URINE 0.2 (NORMAL) E.U./dL (NORMAL)
[2018-12-08 14:38] LABS: BACTERIA,URINE Rare /HPF (None Seen); CLARITY,URINE CLEAR (CLEAR); RBC,URINE None Seen /HPF (0-5); SQUAMOUS EPITHELIAL CELL,UR MOD Squamous (<= Few)
[2018-12-08 14:40] LABS: ALBUMIN 2.8 g/dL (3.2-5.5); ALBUMIN/GLOBULIN RATIO 0.7 (1.0-2.2); ALKALINE PHOSPHATASE 137 IU/L (42-121); ALT ALANINE AMINOTRANSFERASE 11 IU/L (10-60); AST ASPARTATE AMINOTRANSFERASE 15 IU/L (10-42); BILIRUBIN,TOTAL 0.5 mg/dL (0.2-1.0); BUN - BLOOD UREA NITROGEN < 5 mg/dL (6-20); CALCIUM 8.8 mg/dL (8.5-10.3); CARBON DIOXIDE - CO2 21 mmol/L (21-32); CHLORIDE 104 mmol/L (101-111); CREATININE 0.5 mg/dL (0.4-1.0); GFR - MDRD 147 (>89); GLUCOSE 96 mg/dL (70-100); SODIUM 135 mmol/L (135-145); TOTAL PROTEIN 6.6 g/dL (6.7-8.2)
[2018-12-08 14:41] LABS: AMPHETAMINE SCREEN,URINE POSITIVE (NEGATIVE); BENZODIAZEPINES SCREEN, URINE NEGATIVE (NEGATIVE); COCAINE SCREEN URINE NEGATIVE (NEGATIVE); METHADONE SCREEN, URINE NEGATIVE (NEGATIVE); METHAMPHETAMINES SCREEN, URINE POSITIVE (NEGATIVE); OPIATE SCREEN, URINE NEGATIVE (NEGATIVE); OXYCODONE SCREEN, URINE NEGATIVE (NEGATIVE); PROPOXYPHENE SCREEN, URINE NEGATIVE (NEGATIVE); TRICYCLIC ANTIDEPRESSANT,URINE NEGATIVE (NEGATIVE)
[2018-12-08] MEDS ORDERED: SODIUM CHLORIDE FLUSH 0.9% 10 ML SYRINGE ONE (15:14)
[2018-12-08] MEDS ORDERED: FERRIC GLUCONATE 125 MG in SODIUM CHLORIDE 0.9% 100ML 100 ML IV ONE (16:00)
[2018-12-08 17:48] VITALS: BP 122/66
[2018-12-08 19:04] LABS: TRICHOMONAS VAGINALIS DNA NEGATIVE (NEGATIVE)
--- NOTE | 2018-12-13 15:59 | PROVIDER PROGRESS NOTE ---
- HPI Chief Complaint: Other (Back pain) Current : Current EDU 01/07/19 Gestation 35 Weeks and 5 Days 4 Para 1 Vital Signs Temperature 98.6 F 12/08/18 13:39 Heart Rate 120 H 12/08/18 13:39 Respiratory Rate 17 12/08/18 13:39 Blood Pressure 127/71 12/08/18 13:39 O2 Saturation 100 12/08/18 13:39 Temperature 98.8 F 12/08/18 17:30 Heart Rate 108 H 12/08/18 17:30 Respiratory Rate 16 12/08/18 17:30 Blood Pressure 122/66 12/08/18 17:30 O2 Saturation 100 12/08/18 17:30 - Exam GEN: NAD CV: RRR- tachycardic RES: CTAB ABD: Gravid, S&NT BACK: minimal CVA tenderness EXT: WWP PSYCH: appropriate affect NEURO: alert and oriented SVE FT/long/closed - Procedures OB Procedure Performed: NST Diagnosis/Indication for NST: Other NST Procedure: NST Procedure Start Date 12/08/18 Start Time 13:30 Stop Time 15:07 Vibroacoustic Stimulation Used No Patient States Movement Yes EFM 145 mod jem 15x15 accels one decel at 14:20 with 20 minutes RR tracing before and after decel TOCO: quiet Service Date of procedure: 12/08/18 Procedure Details: NST Cat I tracing Findings: EKG shows sinus tach Normal PIH labs Mild anemia TOX positive for meth and amphetamines UA suspicious for UTI - Plan Plan: Oanh is a 28 yo at 35w4d here with back pain c/f pyelonephritis and found to have tachycardia SOC: Sporadic care with initial US showing fetus at 8%ile. Had repeat that showed 22%ile. 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 Blames + meth on likely laced THC. No THC on tox screen. Meth use earlier in . TACHYCARDIA: Likely related to meth use EKG showed sinus tach Normal electrolytes Resolved with IV hydration UTI: Positive UA. Sent with Rx for cephalexin PNC: Sporadic care -GBS and GCCT collected today Bedside US showed vertex position Pt reports she will RTC this week. More than 60 minutes was spent with this patient, of whichmore than 50% was in face to face college and career counselor and plan of care
== END 2018-12-08 17:30 | disposition home or self-care (01) ==
LOC: WFO 13:23 → FBP 13:33 → WFO 17:30
PROVIDERS: ATTEND Obstetrics & Gynecology
DX: O99.89 Other specified diseases and conditions complicating pregnancy, childbirth and the puerperium (principal); M54.9 Dorsalgia, unspecified; R00.0 Tachycardia, unspecified; R82.90 Unspecified abnormal findings in urine; O36.8330 Maternal care for abnormalities of the fetal heart rate or rhythm, third trimester, not applicable or unspecified; O09.33 Supervision of pregnancy with insufficient antenatal care, third trimester; O09.73 Supervision of high risk pregnancy due to social problems, third trimester; O99.323 Drug use complicating pregnancy, third trimester; F15.90 Other stimulant use, unspecified, uncomplicated; F12.90 Cannabis use, unspecified, uncomplicated; O99.013 Anemia complicating pregnancy, third trimester; D64.9 Anemia, unspecified; Z3A.35 35 weeks gestation of pregnancy
CPT/HCPCS: 80053; 80306; 81001; 84443; 85025; 87086; 87181; 87491; 87591; 87661; 87797; 93005; 96365; 99214; J2916

== ENCOUNTER 2019-01-07 15:24 | Outpatient (CLI) | payer MEDICAID ==
[2019-01-07] MEDS ORDERED: SODIUM CHLORIDE FLUSH 0.9% 10 ML SYRINGE ONE (15:57)
[2019-01-07 17:56] VITALS: BP 120/76
== END 2019-01-07 17:30 | disposition home or self-care (01) ==
LOC: WFO 15:24 → FBP 15:25 → WFO 17:30
PROVIDERS: ATTEND Obstetrics & Gynecology
DX: Z53.9 Procedure and treatment not carried out, unspecified reason (principal)
CPT/HCPCS: 99213

== ENCOUNTER 2019-01-11 16:00 | Outpatient (CLI) | payer MEDICAID ==
[2019-01-11 16:12] VITALS: BP 135/81
--- NOTE | 2019-01-11 19:36 | Ultrasound Report ---
Reason: variable decels Procedure Date: 01/11/2019 Accession Number: [id number] / [id number] Procedure: US - OB Biophysical Profile CPT Code: FULL RESULT: EXAM: BIOPHYSICAL PROFILE EXAM DATE: 01/11/2019 07:09 PM. CLINICAL HISTORY: Variable decels. COMPARISON: OB F/U OR REPEAT 11/11/2018 11:28 AM. TECHNIQUE: Real-time sonographic evaluation of the fetus performed by the hris coordinator. Multiple footwear sales representative static images were saved for review. DATING: Established EGA 40 weeks 4 days with JAMIR 01/07/2019. GENERAL EVALUATION Burch . Cardiac activity: 141 bpm. movement: Visualized. Presentation: Cephalic. Placenta: Anterior position. Amniotic fluid: There is polyhydramnios. OSITO 29.3 cm. MVP 8.7 cm. BIOPHYSICAL PROFILE Breathing = 2 Movement = 2 Tone = 2 Amniotic Fluid = 2 Total 02/06 IMPRESSION: 1. Burch live intrauterine with gestational age 40 weeks 4 days based on established JAMIR. 2. Biophysical profile score 8 of 8. 3. Polyhydramnios with OSITO of 29.3 cm. RADIA
--- NOTE | 2019-01-15 15:38 | PROCEDURE REPORT ---
- HPI Diagnosis/Indication for NST: Other (pt presented for contractions) Current EDU 01/07/19 Gestation 40 Weeks and 4 Days 4 Para 1 Vital Signs Blood Pressure 136/96 H 01/11/19 16:09 Temperature 36.4 C L 01/11/19 16:11 Heart Rate 103 H 01/11/19 16:11 Respiratory Rate 20 01/11/19 16:11 Blood Pressure 135/81 H 01/11/19 16:11 O2 Saturation 100 01/11/19 16:11 - NST Procedure NST Procedure Start Time 13:30 Stop Time 15:07 - Results and Plan Findings/Impression: Pt was noted to have few decelerations with a reactive NST. For this reasion A BPP was done 02/06. but she was noted to have polyhydramneose. Plan: follow up in the office for evaluation adn schedule for induction.
== END 2019-01-11 19:04 | disposition home or self-care (01) ==
LOC: WFO 16:00 → FBP 16:02 → WFO 19:04
PROVIDERS: ATTEND Obstetrics & Gynecology
DX: O40.3XX0 Polyhydramnios, third trimester, not applicable or unspecified (principal); O36.8330 Maternal care for abnormalities of the fetal heart rate or rhythm, third trimester, not applicable or unspecified; Z3A.40 40 weeks gestation of pregnancy
CPT/HCPCS: 76819; 99214

== ENCOUNTER 2019-01-13 10:26 | Outpatient (CLI) | payer MEDICAID ==
[2019-01-13 10:41] VITALS: BP 118/96
--- NOTE | 2019-01-13 15:01 | PROCEDURE REPORT ---
- HPI Diagnosis/Indication for NST: Polyhydramnios Current EDU 01/07/19 Gestation 40 Weeks and 6 Days 2 Para 1 Vital Signs Temperature 36.6 C 01/13/19 10:40 Heart Rate 95 01/13/19 10:40 Respiratory Rate 16 01/13/19 10:40 Blood Pressure 118/96 H 01/13/19 10:40 O2 Saturation 100 01/13/19 10:40 Temperature 36.6 C 01/13/19 10:40 Heart Rate 95 01/13/19 10:40 Respiratory Rate 16 01/13/19 10:40 Blood Pressure 118/96 H 01/13/19 10:40 O2 Saturation 100 01/13/19 10:40 - NST Procedure NST Procedure Start Date 01/13/19 Start Time 10:35 Stop Time 11:00 Vibroacoustic Stimulation Used No Patient States Movement Yes - Results and Plan Findings/Impression: There is a reactive NST.This was read on 01/13/2009 Plan: Impression: 1. Intrauterine at 40 weeks and 6 days gestation 2. Polyhydramnios Plan: The patient is discharged to the office for further evaluation. She will need induction of labor sometime this week. She will have her cervix checked in the office to decide what might need to be done to start her labor.
== END 2019-01-13 11:15 | disposition home or self-care (01) ==
LOC: WFO 10:26 → FBP 10:30 → WFO 11:15
PROVIDERS: ATTEND Obstetrics & Gynecology
DX: O40.3XX0 Polyhydramnios, third trimester, not applicable or unspecified (principal); Z3A.40 40 weeks gestation of pregnancy
CPT/HCPCS: 59025

== ENCOUNTER 2019-01-13 19:10 | Outpatient (CLI) | payer MEDICAID ==
--- NOTE | 2019-01-13 19:52 | PROVIDER PROGRESS NOTE ---
- HPI Chief Complaint: Labor Check Current : The patient came in tonight complaining of a labor check. She stated that approximately 18 4500 hours she had leakage of fluid. I asked her if the fluid was clear she stated and it was pinkish.She feels pressure but has no contractions per se.She is on the schedule for an induction tomorrow morning. - Procedures NST Procedure: NST Procedure Start Time 10:35 Stop Time 11:00 Findings: O - Pelvic: The cervix is posteriorIt is thick it is approximately 2 cm dilated. The fetus is still high in the pelvis at about -3 presentation. Membranes are felt through the cervix bulging.Nitrazine was positive but Fern test was absolutely negative.No fluid was noted in the vagina.No bloody show is noted.No fluid on the perineum or on the pad.No contractions are noted on the monitor. The fetus is reactive. - Plan Plan: Impression: intrauterine at 40 weeks 6 days gestation Intact membranes Plan: I talked to the patient about possibly staying so we could either observe her overnight since she is for an induction in the morning. She would rather go home at this time. She was told to return if she has any more leakage of fluid or if she feels any other signs of labor.As long she does well we will see her backOn 01/14/2009 in the obstetric department at 0600 hrs and for her induction.
[2019-01-13 21:56] VITALS: BP 124/82
== END 2019-01-13 19:55 | disposition home or self-care (01) ==
LOC: WFO 19:10 → FBP 19:18 → WFO 19:55
PROVIDERS: ATTEND Obstetrics & Gynecology
DX: O40.3XX0 Polyhydramnios, third trimester, not applicable or unspecified (principal); Z3A.40 40 weeks gestation of pregnancy
CPT/HCPCS: 59025; 99213

== ENCOUNTER 2019-01-14 05:58 | Inpatient (IN) | payer MEDICAID ==
--- NOTE | 2019-01-13 13:23 | HISTORY & PHYSICAL EXAMINATION ---
Admit History - : 4 Parity: 1 : 2 Care: positive: [place] Risk/History: positive: Polyhydramnios (The patient is also used methamphetamines during her .She has also been fairly noncompliant and has missed almost all of her appointments.) Complications This : positive: Maternal drug use Smoking Status: Current every day smoker - Mother's Labs Mother's Blood Type: positive: A Mother's RH: positive: Negative (RhoGam was given on 11/12/2015) GBS: positive: Group B Step Negative Rubella Status: positive: Non-immune (The patient is a well-developed, well- nourished, 28-year-old female who is a 4 para 1-0-2-1.She presents at 41 weeks gestation. She has had only a couple of visits. She has used methamphetamines during her . She has smoked throughout her . She has known polyhydramnios. She is being admitted for induction of labor at 41 weeks gestationShe has had serial NSTs which have all been within normal.Because there was a couple of small variables noted on a NST on, she had a biophysical profile.This rendered a score of 8 out of 8. She had another NST on 01/13/2019 which was totally reactive without any decelerations. She did notes good movement.She is without any complaint today. We went through the risks, benefits, alternatives and complications of a Cytotec possible Pitocin induction. Questions encouraged and answered, she understood and consents were signed.) Meds/Allgy - Home Medications Home Medications: Ambulatory Orders Medication Instructions Recorded Confirmed Albuterol Oral Soln 09/06/18 Albuterol Sulf [Ventolin Hfa 1 - 2 puffs INH Q4HR PRN #1 inhaler 09/06/18 Inhaler] Benzonatate [Tessalon Perle] 100 - 200 mg PO TID PRN #30 capsule 09/06/18 - Allergies Allergies/Adverse Reactions: Allergies Allergy/AdvReac Type Severity Reaction Status Date / Time divalproex sodium Allergy Hives Verified 09/06/18 08:10 [facility] Review of Systems - Constitutional Constitutional: denies: Fatigue, Fever, Chills, Malaise - Eyes Eyes: denies: Pain, Irritation, Amaurosis, Blurred vision, Spots in vision - Ears, Nose & Throat Ears, Nose & Throat: denies: Ear pain, Hearing loss, Hearing aids, Tinnitus, Vertigo, Nosebleeds, Nasal congestion, Postnasal drainage, Sore throat, Hoarseness - Cardiovascular Cariovascular: denies: Irregular heart rate, Palpitations, Chest pain, Edema, Lightheadedness - Respiratory Respiratory: denies: Cough, Sputum production, Wheezing, Hemoptysis, Orthopnea - Gastrointestinal Gastrointestinal: denies: Abdominal pain, Constipation, Diarrhea, Change in bowel habits, Rectal bleeding, Nausea, Vomiting, Reflux/heartburn - Genitourinary Genitourinary: denies: Dysuria, Frequency, Urgency, Incontinence - Musculoskeletal Musculoskeletal: denies: Muscle pain, Muscle aches, Stiffness, Limited range of motion - Integumentary Integumentary: denies: Rash, Pruritis, Lesions, Lumps - Neurological Neurological: denies: Headache, Dizziness, Numbness, Memory problems, Abnormal gait, Seizures - Psychiatric Psychiatric: denies: Depression, Anxiety, Suicidal, Delusions - Endocrine Endocrine: denies: Polyuria, Polydypsia, Polyphagia, Intolerance to cold, Intolerance to heat - Hematologic/Lymphatic Hematologic/Lymphatic: denies: Anemia, Bruising, Petechiae, Blood clots, Bleeding tendencies Physical - Abdominal Exam : None - Monitoring Heart Rate Baseline: 130BPM Strip Review: positive: Category I - Vaginal Exam Membranes: positive: Membranes intact Dilation (in cm): 2 Effacement (%): 20 Station: positive: -3 Cervical Position: positive: Anterior Plan for Labor - Plan For Labor I expect patient to be DC'd or transferred within 96 hours.: Yes Plan for Labor: Impression: Intrauterine at 41 weeks gestation Polyhydramnios Plan: We are admitting the patient for an induction of labor.Since her cervix is quite long we will start with a dose of misoprostol. After that we will reassess to see if Pitocin can be's started at that time.
[~2019-01-14 05:58] MED LIST: LACTATED RINGERS 1,000 ML IV SCH; SODIUM CHLORIDE FLUSH 0.9% 10 ML SYRINGE IVP PRN; SODIUM CHLORIDE FLUSH 0.9% 10 ML SYRINGE IVP SCH
[2019-01-14] MEDS ORDERED: miSOPROStol 100 MCG TABLET VG SCH (07:00)
[2019-01-14] MEDS ORDERED: ONDANSETRON 4 MG/2 ML VIAL IVP PRN ×2 (07:01→15:25)
[2019-01-14] MEDS ORDERED: fentaNYL 100 MCG/2 ML VIAL IVP PRN (07:01)
[2019-01-14 07:17] LABS: BASOPHILS % (AUTO) 0.3 %; EOSINOPHILS # (AUTO) 0.2 10^3/uL (0.0-0.7); EOSINOPHILS % (AUTO) 1.8 %; HGB - HEMOGLOBIN 10.4 g/dL (12.0-16.0); LYMPHOCYTES # (AUTO) 2.6 10^3/uL (1.5-3.5); LYMPHOCYTES % (AUTO) 20.7 %; MEAN CORPUSCULAR HEMOGLOBIN 32.6 pg (27.0-31.0); MEAN CORPUSCULAR VOLUME 95.9 fL (81.0-99.0); MEAN PLATELET VOLUME 10.6 fL (7.9-10.8); MONOCYTES # (AUTO) 0.7 10^3/uL (0.0-1.0); MONOCYTES % (AUTO) 5.9 %; NEUTROPHILS # (AUTO) 8.8 10^3/uL (1.5-6.6); NEUTROPHILS % (AUTO) 70.3 %; PLT - PLATELET COUNT 293 10^3/uL (130-450); RED BLOOD COUNT 3.19 10^6/uL (4.20-5.40); RED CELL DISTRIBUTION WIDTH 13.7 % (12.0-15.0); WHITE BLOOD COUNT 12.5 x10^3/uL (4.8-10.8)
[2019-01-14 07:57] LABS: MUDS CUTOFF CONCENTRATIONS CUTOFF CONC BELOW:
[2019-01-14 08:17] LABS: AMPHETAMINE SCREEN,URINE NEGATIVE (NEGATIVE); BENZODIAZEPINES SCREEN, URINE NEGATIVE (NEGATIVE); COCAINE SCREEN URINE NEGATIVE (NEGATIVE); METHADONE SCREEN, URINE NEGATIVE (NEGATIVE); METHAMPHETAMINES SCREEN, URINE NEGATIVE (NEGATIVE); OPIATE SCREEN, URINE NEGATIVE (NEGATIVE); OXYCODONE SCREEN, URINE NEGATIVE (NEGATIVE); PROPOXYPHENE SCREEN, URINE NEGATIVE (NEGATIVE); TRICYCLIC ANTIDEPRESSANT,URINE NEGATIVE (NEGATIVE)
[2019-01-14] MEDS ORDERED: OXYTOCIN/SODIUM CHLORIDE 500 ML IV ONE (08:17)
[2019-01-14] MEDS ORDERED: LIDOCAINE-MPF 1% 30 ML VIAL ONE (08:17)
[2019-01-14] MEDS ORDERED: miSOPROStol 200 MCG TABLET ONE (08:17)
--- NOTE | 2019-01-14 11:15 | PROVIDER PROGRESS NOTE ---
Labor Progress Note - Labor Progress Note Labor Progress Note/Additional Text: The patient has moderate to firm contractions every 2 to 3 minutes. There is a category 1 EFM noted.Unfortunately she did not get her first dose of misoprostol till 08 15Hours.Membranes remain intact. Her cervix is now 2 to 3 cm, 75%, -3. We will continue to follow her closely. As soon as her cervix opens up slightly more we will consider an amniotomy.
--- NOTE | 2019-01-14 12:58 | PROVIDER PROGRESS NOTE ---
Labor Progress Note - Labor Progress Note Labor Progress Note/Additional Text: The patient cervix is 3 cm, 80% -3.Contractions are now getting mild and occurring every 3 minutes.There is still a category 1 EFM noted. An amniotomy was performed with a large amount of clear fluid. This took place at 1249 hrs.A category 1 EFM was still noted after the rupture of membranes.We will watch her over the next hour to see if adequate labor ensues. If not a Pitocin drip will be started.
--- NOTE | 2019-01-14 14:47 | PROVIDER PROGRESS NOTE ---
Labor Progress Note - Labor Progress Note Labor Progress Note/Additional Text: The patient cervix is now 6 cm, 90%, -1. There is a category 1 EFM noted. She is bernie firmly every 2 minutes.She is requesting an epidural.We will have anesthesia notified. We will continue to follow her closely.
[2019-01-14] MEDS ORDERED: fent/BUPIV 2 MCG/0.125% 250 ML EP ONE (14:56)
[2019-01-14] MEDS ORDERED: fentaNYL 100 MCG/2 ML VIAL ONE (14:57)
[2019-01-14] MEDS ORDERED: ROPIVACAINE 0.2% PF 20 ML AMPULE ONE (14:57)
[2019-01-14] MEDS ORDERED: NALBUPHINE 10 MG/ML AMP IVP PRN (15:25)
[2019-01-14] MEDS ORDERED: diphenhydrAMINE INJ 50 MG/ML VIAL IVP PRN (15:25)
[2019-01-14] MEDS ORDERED: fent/BUPIV 2 MCG/0.125% 250 ML EP PRN (15:25)
--- NOTE | 2019-01-14 15:36 | ANESTHESIA ---
Pre-Anesthesia VS, & Labs - Diagnosis term labor, IUP - Procedure epidural placement Vital Signs: Temp Pulse Resp BP Pulse Ox 36.7 C 82 18 129/74 97 01/14/19 07:40 01/14/19 07:40 01/14/19 07:40 01/14/19 07:40 01/14/19 07:40 Height 5 ft 4 in Weight (kg) 82.1 kg Body Mass Index 29.2 - NPO Last Fluid Intake: t/o day Last Food Intake: <6hrs - Is Patient ?: Yes - Lab Results Current Lab Results: Laboratory Tests 01/14/19 07:07: WBC 12.5 H, RBC 3.19 L, Hgb 10.4 L, Hct 30.6 L, MCV 95.9, MCH 32.6 H, MCHC 34.0, RDW 13.7, Plt Count 293, MPV 10.6, Neut # (Auto) 8.8 H, Lymph # (Auto) 2.6, [place] # (Auto) 0.7, Eos # (Auto) 0.2, Baso # (Auto) 0.0, Absolute Nucleated RBC 0.00, Nucleated RBC % 0.0 01/14/19 06:55: Urine Opiates Screen NEGATIVE, Ur Oxycodone Screen NEGATIVE, Urine Methadone Screen NEGATIVE, Ur Propoxyphene Screen NEGATIVE, Ur Barbiturates Screen NEGATIVE, Ur Tricyclics Screen NEGATIVE, Ur Phencyclidine Scrn NEGATIVE, Ur Amphetamine Screen NEGATIVE, U Methamphetamines Scrn NEGATIVE, U Benzodiazepines Scrn NEGATIVE, Urine Cocaine Screen NEGATIVE, U Cannabinoids Screen NEGATIVE Fish Bones: 01/14/19 07:07 Home Medications and Allergies Active Medications Diphenhydramine HCl (Benadryl Inj) 12.5 - 25 mg IVP Q6HR PRN PRN Reason: ITCHING Fentanyl (Fentanyl) 50 mcg IVP Q1H PRN PRN Reason: PAIN Lactated Ringer's (Lr) 1,000 mls @ 100 mls/hr IV .Q10H NELSY Last Admin: 01/14/19 14:38 Dose: 999 mls/hr Fentanyl/Bupivacaine/Sodium Chlor (Fent/Bupiv 2 Mcg/0.125%) 250 mls @ 0 mls/hr EP .Q0M PRN; Protocol PRN Reason: PAIN Misoprostol (Cytotec) 25 mcg VG Q4HR [facility] Last Admin: 01/14/19 08:15 Dose: 25 mcg Nalbuphine HCl (Nubain) 2.5 - 5 mg IVP Q4H PRN PRN Reason: Severe Itching Ondansetron HCl (Zofran Inj) 4 mg IVP Q4H PRN PRN Reason: Nausea / Vomiting Sodium Chloride (Normal Saline Flush 0.9%) 10 ml IVP 0100,0900,1700 [facility] Last Admin: 01/14/19 14:38 Dose: 10 ml Sodium Chloride (Normal Saline Flush 0.9%) 10 ml IVP PRN PRN PRN Reason: NEEDED PER PROVIDER ORDERS Albuterol Oral Soln 09/06/18 Allergies/Adverse Reactions: Allergies Allergy/AdvReac Type Severity Reaction Status Date / Time divalproex sodium Allergy Hives Verified 09/06/18 08:10 [facility] Anes History & Medical History - Anesthetic History Anesthesia Complications: reports: No previous complications Family history of Anesthesia Complications: Denies Family history of Malignant Hyperthermia: Denies - Medical History Pulmonary: reports: Asthma Musculoskeletal: reports: Other Endocrine/Autoimmune: reports: None Smoking Status: Current every day smoker - Surgical History Orthopedic: Other - Obstetrical History : 4 Parity: 1 Events: positive: Polyhydramnios (The patient is also used methamphetamines during her .She has also been fairly noncompliant and has missed almost all of her appointments.) Complications: positive: Maternal drug use Exam General: Alert, Oriented x3, Cooperative Dental: WNL Mouth Openin Fingerbreadth Neck Mobility: Normal Mallampati classification: II Thyromental Distance: 4-6 cm Respiratory: No respiratory distress Cardiovascular: Regular rate Neurological: Normal speech Mental/Cognitive Status: Alert/Oriented X3, Normal for patient Cognitive Status: Within normal limits Plan Anesthesia Type: Epidural Consent for Procedure(s) Verified and Reviewed: Yes Code Status: Attempt Resuscitation ASA classification: 2-Mild systemic disease Is this case an emergency?: No
[2019-01-14] MEDS ORDERED: OXYTOCIN 10 UNIT/ML VIAL IM ONE (17:33)
[2019-01-14] MEDS ORDERED: WITCH HAZEL/GLYCERIN 1 PAD TOP PRN (17:33)
[2019-01-14] MEDS ORDERED: diphenhydrAMINE 25 MG CAPSULE PO PRN (17:33)
--- NOTE | 2019-01-14 17:45 | DELIVERY NOTE ---
Delivery Note - Labor Labor: positive: Augmented by ARM, Other (cytotec) - Delivery Method Delivery Method: positive: Spontaneous vaginal delivery - Cervical Ripening Method Cervical Ripening Method: positive: Misoprostil - Presentation Presentation: positive: Vertex, DARIEN - right occiput anterior - Nuchal Cord Nuchal Cord: positive: None - Anesthetic Anesthetic Type: - Amniotic Fluid Description Amniotic Fluid Description: positive: Clear - Episiotomy Type Episiotomy Type: positive: None - Laceration Laceration: positive: None - Delivery Outcome Delivery Outcome: positive: Livebirth - : positive: Placed in direct skin contact with mother, Bulb syringe, Stimulated, Warmed [place] sex: positive: Male - Cord Cord: positive: 3 vessels - Placenta Placenta: positive: Intact, Spontaneous - Post Delivery Events Post Delivery Events: positive: No post delivery events - Delivery Comments (Free Text/Narrative) Delivery Comments (Free Text/Narrative): Pt had AROM at 1249. Fluid was noted to be clear. Pt reached complete at 1624. Pushing was delayed for physician to arrive. allowed to labor down. Pushed twice with one contraction 1658 and at 1659 live male infant wt 7 lb 9 oz with Apgare of 9/9 was delivered over an intact perineum. Placenta followed complete at 1706. EBL 200 ml.
[2019-01-14] MEDS ORDERED: LACTATED RINGERS 1,000 ML IV SCH (18:00)
[2019-01-14] MEDS: IBUPROFEN 800 MG TABLET PO SCH (18:44)
[2019-01-14] MEDS: ACETAMINOPHEN 500 MG TABLET PO SCH (18:44)
[2019-01-15] MEDS ORDERED: SODIUM CHLORIDE FLUSH 0.9% 10 ML SYRINGE ONE (06:17)
[2019-01-15] MEDS: IBUPROFEN 800 MG TABLET PO SCH ×3 (07:58→21:50)
[2019-01-15] MEDS: DOCUSATE SODIUM 100 MG CAPSULE PO SCH ×2 (07:58→21:49)
[2019-01-15] MEDS: ACETAMINOPHEN 500 MG TABLET PO SCH ×2 (07:59→16:45)
--- NOTE | 2019-01-15 13:27 | PROVIDER PROGRESS NOTE ---
Subjective - Prog Note Date Prog Note Date: 01/15/19 Prog Note Time: 13:25 - Subjective Pt reports feeling: Improved (PAIN WELL CONTROLED TAKING TYLENOL WITH MOTRIN Pt has been seen by CCP and kellil justus.) Objective - Vital Signs/Intake & Output Reviewed Vital Signs: Yes Vital Signs: Vital Signs x48h Temp Pulse Resp BP Pulse Ox 01/15/19 08:01 36.6 C 83 18 113/68 99 Intake & Output: Intake & Output 01/12/19 01/13/19 01/14/19 01/15/19 23:59 23:59 23:59 23:59 Intake Total 2499.5 Output Total 1250 Balance 1249.5 - Objective General Appearance: positive: No acute distress, Alert Abdomen: positive: Mass (nontender) Extremities: negative: Calf tenderness, Lance's sign/cords Neurologic/Psychiatric: positive: Oriented x3 - Lab Results Fish Bones: 01/14/19 07:07 Assessment/Plan - Problem List (1) (spontaneous vaginal delivery) Impression: Pt is doing well. Has Hx of PTSD. took Meth durriing .
[2019-01-15] MEDS ORDERED: MEASLES,MUMPS & RUBELLA VACC 0.5 ML VIAL SUBQ ONE (19:00)
[2019-01-16] MEDS: ACETAMINOPHEN 500 MG TABLET PO SCH (01:24)
[2019-01-16 02:45] VITALS: BP 120/78
[2019-01-16] MEDS: IBUPROFEN 800 MG TABLET PO SCH (05:00)
--- NOTE | 2019-01-16 08:26 | PROVIDER PROGRESS NOTE ---
Subjective - Prog Note Date Prog Note Date: 01/16/19 Prog Note Time: 08:24 - Subjective Pt reports feeling: Improved (PT is doing well. breast feeding) Objective - Vital Signs/Intake & Output Reviewed Vital Signs: Yes Vital Signs: Vital Signs x48h Temp Pulse Resp BP 01/16/19 02:00 36.6 C 87 16 120/78 Intake & Output: Intake & Output 01/13/19 01/14/19 01/15/19 01/16/19 23:59 23:59 23:59 23:59 Intake Total 2499.5 Output Total 1250 Balance 1249.5 - Objective General Appearance: positive: No acute distress, Alert Respiratory: positive: Chest non-tender, No respiratory distress, Breath sounds nml Cardiovascular: positive: Regular rate & rhythm, No murmur, No gallop Abdomen: positive: Non-tender, No organomegaly, Nml bowel sounds, Mass Extremities: negative: Calf tenderness, Lance's sign/cords Neurologic/Psychiatric: positive: Oriented x3 - Lab Results Fish Bones: 01/14/19 07:07 Assessment/Plan - Problem List (1) (spontaneous vaginal delivery) Impression: Pt is progresing well. She has been seen by both CPS and creative services manager. Discussed breast feeding, mastitis and infection. Discharge medications: Motrin 600 mg Colace 100 mg micronor. start 2 weeks . RTC one week
--- NOTE | 2019-01-16 08:30 | Discharge Plan ---
Discharge Plan Problem Reviewed?: Yes Disposition: Home, Self Care Condition: Good Diet: Regular Activity Restrictions: pelvic rest 6 weeks Shower Restrictions: No Driving Restrictions: No Weight Bearing: Full Weight No Smoking: If you smoke, Please STOP! Call for help.
--- NOTE | 2019-01-16 09:57 | Labor Flowsheet ---
Labor Flowsheet Datetime Report Generated by CPN: 01/16/2019 09:57 Datetime: 01/15/2019 21:34 VITAL SIGNS NBP Sys/Jacquelyn/Mean (mmHg): 120 : 81 : 90 Pulse: 87 LaborFlag: Labor Datetime: 01/14/2019 17:06 STAGE 2 Stage 2 Comments: Placenta intact, for pathology Datetime: 01/14/2019 17:00 SpO2 (%): 100 Datetime: 01/14/2019 16:59 UTERINE ACTIVITY Monitor Mode: External Frequency (min): 1.5-3.5 Quality: Strong Duration (sec): 60-100 Resting Tone (Palpate): Relaxed ASSESSMENT A Monitor Mode: Telemetry FHR Baseline Rate : 140 Variability: Moderate 6-25 bpm Accelerations: 10X10 Category: Category II Oxygen Method: Room Air Datetime: 01/14/2019 16:44 COMMUNICATION Communication: RN at Bedside; Provider at Bedside Provider Notified (Name): Dr Rivera here Communication Comments: Dr Rivera getting his boot covers and getting ready for delivery. Datetime: 01/14/2019 16:31 Respirations: 18 Temperature (C): 37.0 Datetime: 01/14/2019 16:24 Comments: Now complete and feeling pressure with every contraction with an urge to push. Reoccuren t varialbes with every contraction. VAGINAL EXAM Dilatation (cm): 10.0 Effacement (%): 100 Station: 1 Exam by: Elver Osborne [facility] Vaginal Bleeding: Normal Show Cervix, Consistency: Soft Cervix, Position: Anterior Vaginal Exam Comments: Feeling pressure Datetime: 01/14/2019 15:22 Decelerations: Early Datetime: 01/14/2019 15:18 ANESTHESIA Anesthesia Plans: Epidural Epidural Positioning: Side Lying Epidural Procedure Other: Pump Started Datetime: 01/14/2019 15:08 PATIENT CARE IV/Blood Work: IV Infusing per Order Datetime: 01/14/2019 15:06 Epidural Procedure: Cath Placed Datetime: 01/14/2019 15:01 Monitor Interventions for FHR: Ultrasound Adjusted Anesthesia Comments: Local to back Datetime: 01/14/2019 14:59 Patient Position/Activity: High Fowlers Patient Care Comments: Sitting to the side of the med for epidural placement Datetime: 01/14/2019 14:53 PROCEDURE TIME OUT Procedure Verify: Correct Patient Identity; Correct Side and Site are Marked; Accurate Procedure Co nsent Form; Agreement on Procedure to be Done; Correct Patient Position; Addressed Need to Administer Antibiotics or Fluids for Irrigation; Safety Precautions Based on Patient History or Medication Use Datetime: 01/14/2019 14:37 PAIN Pain Scale: 8 Pain Type: Cramping Pain Location: Abdomen; Back Pain Assessment Comments: Wants an epidural Datetime: 01/14/2019 14:14 Pattern: Normal: <= 5 Contractions in 10 Minutes Datetime: 01/14/2019 13:56 Stage of : Labor Temperature Route: Oral Pain Presence: Intermittent Datetime: 01/14/2019 13:07 Monitor Interventions for UA: [place] Adjusted Contraction Comments: telemetry unit back in use Datetime: 01/14/2019 13:01 FHR Baseline Changes: No Baseline Change Datetime: 01/14/2019 12:49 Membrane Status: Ruptured Membranes Rupture Method: Artificial Amniotic Fluid Color: Clear Amniotic Fluid Amount: Copious Amniotic Fluid Odor: Normal Membrane Comments: AROM Datetime: 01/14/2019 11:32 I/O Interventions: Up to BR Datetime: 01/14/2019 11:03 Pain Relief Measures: Comfort Measures Pain Coping: Talking Through Contractions Datetime: 01/14/2019 09:31 MATERNAL ASSESSMENT Level of Consciousness: Fully Conscious DTR's/Clonus: DTRs 2+; No Clonus Headache: Denies Nausea/Vomiting: Denies RUQ Epigastric Pain: Denies
== END 2019-01-16 09:25 | disposition home or self-care (01) | DRG 805 ==
LOC: WFO 05:58 → FBP 06:00 → INTOOBSV 12:49 → OBSVTOIN 12:49 → UNDODISIN 01-16 09:25
PROVIDERS: ADMIT Obstetrics & Gynecology; ATTEND Obstetrics & Gynecology
PROC: 10E0XZZ Delivery of Products of Conception, External Approach (ICD-10-PCS; principal; 2019-01-14)
PROC: 10907ZC Drainage of Amniotic Fluid, Therapeutic from Products of Conception, Via Natural or Artificial Opening (ICD-10-PCS; 2019-01-14)
PROC: 3E0P7VZ Introduction of Hormone into Female Reproductive, Via Natural or Artificial Opening (ICD-10-PCS; 2019-01-14)
DX: O40.3XX0 Polyhydramnios, third trimester, not applicable or unspecified (principal); O41.1230 Chorioamnionitis, third trimester, not applicable or unspecified; Z37.0 Single live birth; O99.324 Drug use complicating childbirth; O77.0 Labor and delivery complicated by meconium in amniotic fluid; Z3A.41 41 weeks gestation of pregnancy; O48.0 Post-term pregnancy; F15.90 Other stimulant use, unspecified, uncomplicated; O99.334 Smoking (tobacco) complicating childbirth; F17.200 Nicotine dependence, unspecified, uncomplicated; O26.893 Other specified pregnancy related conditions, third trimester; O99.344 Other mental disorders complicating childbirth; F43.10 Post-traumatic stress disorder, unspecified; Z67.11 Type A blood, Rh negative; Z91.19 Patient's noncompliance with other medical treatment and regimen; Z28.3 Underimmunization status
CPT/HCPCS: 36415; 80306; 85025; A9270; G0379; J7120

== ENCOUNTER 2020-01-18 03:14 | Outpatient (CLI) | payer MEDICAID | END 2020-01-18 03:15 | disposition critical access hospital (66) | LOC: EMS 03:14 | PROVIDERS: ATTEND Surgery | DX: M25.512 Pain in left shoulder (principal) | CPT/HCPCS: A0425; A0429; A0999 ==

== ENCOUNTER 2020-01-18 03:31 | Emergency (ER) | payer MEDICAID ==
[2020-01-18] MEDS ORDERED: fentaNYL 100 MCG/2 ML VIAL IVP STA (04:19)
[2020-01-18] MEDS ORDERED: PROPOFOL 200 MG/20 ML VIAL IVP STA (04:19)
--- NOTE | 2020-01-18 04:19 | ED Physician Documentation ---
PD HPI UPPER EXT INJURY - Stated complaint Stated Complaint: L SHOULDER DISLOCATION - Chief complaint Chief Complaint: Ext Problem - History obtained from History obtained from: Patient - History of Present Illness Location: Left, Shoulder Type of injury: Other (dislocation rolling over in bed) Where injury occurred: Home Timing - onset: Enter time (1700), Yesterday Timing - duration: Hours Timing - details: Abrupt onset, Still present Improved by: Rest, Immobilization Worsened by: Moving, Palpating Similar symptoms before: Diagnosis (shoulder dislocation) Recently seen: Not recently seen - Additonal information Additional information: 29-year-old female with history of recurrent shoulder dislocations rolled over in bed and dislocated her shoulder.She states this happened about 5:00 at night yesterday and that she expected this to be able to go back in place as she has had that sometimes happen and she has come to the emergency department now requesting reduction. She is ready to have this over. She has required sedation for reduction and specifically requested ketamine. She states that she has not had issue with ketamine previously and has preferred it over other agents. She remembers getting a lot of nausea with propofol. Review of Systems Constitutional: denies: Fever Ears: denies: Ear pain Nose: denies: Congestion Throat: denies: Sore throat Respiratory: denies: Dyspnea, Cough GI: denies: Vomiting PD PAST MEDICAL HISTORY - Past Medical History Past Medical History: Yes Respiratory: Asthma Endocrine/Autoimmune: None Psych: Depression, Post traumatic stress disorder Musculoskeletal: Other - Past Surgical History Past Surgical History: Yes Ortho: Other - Present Medications Home Medications: Ambulatory Orders Medication Instructions Recorded Confirmed Albuterol Oral Soln 09/06/18 Albuterol Sulf [Ventolin Hfa 1 - 2 puffs INH Q4HR PRN #1 inhaler 09/06/18 Inhaler] Benzonatate [Tessalon Perle] 100 - 200 mg PO TID PRN #30 capsule 09/06/18 - Allergies Allergies/Adverse Reactions: Allergies Allergy/AdvReac Type Severity Reaction Status Date / Time divalproex sodium Allergy Hives Verified 01/18/20 03:37 [From Depakote] - Social History Does the pt smoke?: Yes Smoking Status: Current every day smoker Does the pt drink ETOH?: No Does the pt have substance abuse?: Yes - Immunizations Immunizations are current?: Yes - POLST Patient has POLST: No PD ED PE NORMAL - Vitals Vital signs reviewed: Yes (hypertensive ) - General General: Alert and oriented X 3, Well developed/nourished, Other (appears to be in pain with remnants cutter tone and flattened affect) - HEENT HEENT: Atraumatic, PERRL, EOMI - Neck Neck: Supple, no meningeal sign - Cardiac Cardiac: RRR, No murmur - Respiratory Respiratory: No respiratory distress, Clear bilaterally - Abdomen Abdomen: Soft, Non tender - Back Back: No CVA TTP, No spinal TTP - Derm Derm: Normal color, Warm and dry, No rash - Extremities Extremities: Other (There is deformity to the left shoulder consistent with dislocation the distal neurovascular components are intact she is able to flex and extend the elbow and wrist without difficulty has severe pain with any movement of the arm.) - Neuro Neuro: Alert and oriented X 3, monitoring and evaluation advisor 2-12 intact, No motor deficit, No sensory deficit, Normal speech Eye Opening: Spontaneous Motor: Obeys Commands Verbal: Oriented GCS Score: 15 - Psych Psych: Other (mood and affect belie pain) Results - Vitals Vitals: Vital Signs - 24 hr 01/18/20 01/18/20 01/18/20 03:37 04:40 04:45 Temperature 36.7 C Heart Rate 83 131 H 128 H Respiratory 22 16 14 Rate Blood Pressure 133/84 H 146/90 H 143/89 H O2 Saturation 98 97 98 01/18/20 01/18/20 01/18/20 04:50 04:55 05:00 Temperature Heart Rate 130 H 133 H 127 H Respiratory 14 14 14 Rate Blood Pressure 149/86 H 147/85 H 144/87 H O2 Saturation 98 98 97 01/18/20 01/18/20 01/18/20 05:05 05:10 05:15 Temperature Heart Rate 120 H 121 H 117 H Respiratory 14 14 16 Rate Blood Pressure 152/86 H 154/93 H 150/96 H O2 Saturation 98 100 100 Oxygen O2 Source Room air - Rads (name of study) left shoulder Radiology: Prelim report reviewed (Impression: Anterior glenohumeral dislocation), EMP read indepedently, See rad report post reduction shoulder Radiology: Prelim report reviewed (Impression: Reduced glenohumeral dislocation.), EMP read indepedently, See rad report Procedures - Reduction Body part reduced: Left, Shoulder Fracture or dislocation: Dislocation Anesthesia: Conscious sedation, Fentanyl (50micrograms), Other (ketamine 250mg) Shoulder reduction technique: Traction - counter tract Reduction aftercare: NV intact, Xray confirms reduction, Alignment improved, Sling, Patient tolerated well - Procedural sedation Sedation prep: Informed consent, Time out completed, Last meal (prior day), PE performed, AHA 1 - healthy, IV O2 monitor, ET CO2 monitor, RT present Sedation medications: fentanyl (50microgram), ketamine (250mg IVP) Patient status during sedation: Unresponsive, Maintained airway, Recovered uneventfully Sedation recovery: Recovered uneventfully, Back to baseline Time in sedation (Minutes): 32 (easily reduced) PD MEDICAL DECISION MAKING - ED course Complexity details: reviewed old records, reviewed results, re-evaluated patient, considered differential, d/w patient ED course: 29-year-old female with recurrent shoulder dislocation has left shoulder dislocation and she does well with ketamine and and fentanyl for conscious sedation the shoulder is easily reduced she is placed into a sling and recovers uneventfully. Departure - Departure Disposition: 01 Home, Self Care Clinical Impression: Shoulder dislocation, recurrent Qualifiers: Laterality: left Qualified Code(s): M24.412 - Recurrent dislocation, left shoulder Condition: Stable Instructions: ED Dislocation Shoulder Redu Follow-Up: Julian Taveras MD [Provider Admit Priv/Credential] -
[2020-01-18] MEDS ORDERED: KETAMINE 500 MG/10 ML VIAL IVP STA (04:27)
[2020-01-18 08:47] VITALS: BP 135/87
--- NOTE | 2020-01-18 09:17 | XRAY Report ---
PROCEDURE: Shoulder 2 View LT INDICATIONS: post reduction TECHNIQUE: 2 views of the shoulder were acquired. COMPARISON: 01/18/2020, 06/18/2017 FINDINGS: Bones: Appropriate shoulder reduction since the prior images. Prior postoperative change of the shahana oid can be seen. No fractures or dislocations. No suspicious bony lesions. Visualized ribs appear i ntact. Soft tissues: No suspicious soft tissue calcifications. The visualized lung demonstrates a normal a ppearance. IMPRESSION: Appropriate shoulder reduction, without definite associated fracture. If there is strong clinical concern for a fracture, please consider a dedicated shoulder CT for furth er evaluation. Note: No significant discrepancy from the preliminary report. Reviewed by: José Glass MD on 01/18/2020 8:16 AM SILVANA Approved by: José Glass MD on 01/18/2020 8:16 AM SILVANA Station ID: [id number]
--- NOTE | 2020-01-18 09:18 | XRAY Report ---
PROCEDURE: Shoulder 3 View LT INDICATIONS: looks dislocated TECHNIQUE: 3 views of the shoulder were acquired. COMPARISON: 06/18/2017 FINDINGS: Bones: Anterior shoulder dislocation can be seen. No definite associated fractures are seen. Prior gl enoid postoperative change is seen. The visualized ribs are unremarkable. No suspicious lytic or blastic lesions are seen. Soft tissues: No suspicious soft tissue calcifications. The visualized lung demonstrates a normal a ppearance. IMPRESSION: Anterior shoulder dislocation. Note: No significant discrepancy from the preliminary report. Reviewed by: José Glass MD on 01/18/2020 8:17 AM SILVANA Approved by: José Glass MD on 01/18/2020 8:17 AM SILVANA Station ID: [id number]
== END 2020-01-18 10:40 | disposition home or self-care (01) ==
LOC: EDUNIT# → ED 03:31
DX: M24.412 Recurrent dislocation, left shoulder (principal); X50.9XXA Other and unspecified overexertion or strenuous movements or postures, initial encounter; Y93.89 Activity, other specified; Y92.003 Bedroom of unspecified non-institutional (private) residence as the place of occurrence of the external cause; F17.200 Nicotine dependence, unspecified, uncomplicated
CPT/HCPCS: 94770; 99152; 99153; 99282; 99285

== ENCOUNTER 2020-04-30 19:21 | Outpatient (CLI) | payer OTHER, MEDICAID | END 2020-04-30 19:22 | disposition critical access hospital (66) | LOC: EMS 19:21 | PROVIDERS: ATTEND Surgery | DX: S09.90XA Unspecified injury of head, initial encounter (principal); R51.9 Headache, unspecified; R07.9 Chest pain, unspecified; V43.51XA Car driver injured in collision with sport utility vehicle in traffic accident, initial encounter; Y93.89 Activity, other specified; Y92.413 State road as the place of occurrence of the external cause | CPT/HCPCS: A0425; A0429 ==

== ENCOUNTER 2020-04-30 19:27 | Emergency (ER) | payer OTHER, MEDICAID ==
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
[2020-04-30 19:57] LABS: BASOPHILS % (AUTO) 0.6 %; EOSINOPHILS # (AUTO) 0.1 10^3/uL (0.0-0.7); EOSINOPHILS % (AUTO) 1.9 %; HGB - HEMOGLOBIN 13.2 g/dL (12.0-16.0); LYMPHOCYTES # (AUTO) 1.9 10^3/uL (1.5-3.5); LYMPHOCYTES % (AUTO) 28.9 %; MEAN CORPUSCULAR HEMOGLOBIN 31.8 pg (27.0-31.0); MEAN CORPUSCULAR HGB CONC 33.5 g/dL (32.0-36.0); MEAN CORPUSCULAR VOLUME 94.9 fL (81.0-99.0); MEAN PLATELET VOLUME 9.5 fL (7.9-10.8); MONOCYTES # (AUTO) 0.4 10^3/uL (0.0-1.0); MONOCYTES % (AUTO) 6.4 %; NEUTROPHILS # (AUTO) 4.1 10^3/uL (1.5-6.6); NEUTROPHILS % (AUTO) 61.9 %; PLT - PLATELET COUNT 371 10^3/uL (130-450); RED BLOOD COUNT 4.15 10^6/uL (4.20-5.40); RED CELL DISTRIBUTION WIDTH 12.9 % (12.0-15.0); WHITE BLOOD COUNT 6.7 x10^3/uL (4.8-10.8)
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
[2020-04-30 20:10] LABS: ALBUMIN 4.1 g/dL (3.2-5.5); ALBUMIN/GLOBULIN RATIO 1.3 (1.0-2.2); BILIRUBIN,TOTAL 0.5 mg/dL (0.2-1.0); CALCIUM 8.9 mg/dL (8.5-10.3); CREATININE 0.9 mg/dL (0.4-1.0); TOTAL PROTEIN 7.2 g/dL (6.7-8.2)
[2020-04-30 20:20] LABS: HCG,QUALITATIVE BLOOD NEGATIVE
[2020-04-30 20:53] LABS: BILIRUBIN,URINE NEGATIVE (NEGATIVE); GLUCOSE, URINE (UA) NEGATIVE (NEGATIVE); KETONES,URINE (UA) NEGATIVE (NEGATIVE); LEUKOCYTE ESTERASE, URINE NEGATIVE (NEGATIVE); NITRITE,URINE POSITIVE (NEGATIVE); OCCULT BLOOD,URINE NEGATIVE (NEGATIVE); PROTEIN,URINE NEGATIVE (NEGATIVE); UROBILINOGEN,URINE 0.2 (NORMAL) E.U./dL (NORMAL)
[2020-04-30 20:55] LABS: CLARITY,URINE CLOUDY (CLEAR)
[2020-04-30 21:08] VITALS: BP 140/80
[2020-04-30 21:08] LABS: RBC,URINE None Seen /HPF (0-5); SQUAMOUS EPITHELIAL CELL,UR MOD Squamous (<= Few)
[2020-04-30 21:09] LABS: BACTERIA,URINE Many /HPF (None Seen); MUCUS,URINE Moderate Strands
== END 2020-04-30 21:13 | disposition home or self-care (01) ==
LOC: EDUNIT# → ED 19:27
DX: S09.90XA Unspecified injury of head, initial encounter (principal); M54.2 Cervicalgia; V43.52XA Car driver injured in collision with other type car in traffic accident, initial encounter; W22.11XA Striking against or struck by driver side automobile airbag, initial encounter; Y92.410 Unspecified street and highway as the place of occurrence of the external cause; F17.200 Nicotine dependence, unspecified, uncomplicated
CPT/HCPCS: 36415; 70450; 72125; 80053; 81001; 81003; 83690; 84703; 85025; 87086; 99284; 99285

== ENCOUNTER 2020-10-18 04:18 | Emergency (ER) | payer MEDICAID ==
--- NOTE | 2020-10-18 04:30 | ED Physician Documentation ---
PD HPI UPPER EXT INJURY - Stated complaint Stated Complaint: L SHOULDER PX - Chief complaint Chief Complaint: Ext Problem - History obtained from History obtained from: Patient - History of Present Illness Location: Left, Shoulder Type of injury: Other (just reaching for something and shoulder dislocated. Has had this happen many times and often pops back in. Has had it a few times need to get reduced.) Where injury occurred: Home Timing - onset: How many hours ago (few) Timing - duration: Hours (few) Timing - details: Abrupt onset, Still present Worsened by: Moving Associated symptoms: No: Weakness, Numbness Similar symptoms before: Diagnosis (prior rotator cuff injury with poor healing, has had surgery as well. But still intermittent dislocations.) Review of Systems Skin: denies: Abrasion (s), Laceration (s) Neurologic: denies: Focal weakness, Numbness PD PAST MEDICAL HISTORY - Past Medical History Respiratory: Asthma Endocrine/Autoimmune: None Psych: Depression, Post traumatic stress disorder Musculoskeletal: Other - Past Surgical History Past Surgical History: Yes Ortho: Other - Present Medications Home Medications: Ambulatory Orders Medication Instructions Recorded Confirmed No Known Home Medications 04/30/20 04/30/20 - Allergies Allergies/Adverse Reactions: Allergies Allergy/AdvReac Type Severity Reaction Status Date / Time divalproex sodium Allergy Hives Verified 04/30/20 19:34 [facility] - Social History Does the pt smoke?: Yes Smoking Status: Current every day smoker Does the pt drink ETOH?: No Does the pt have substance abuse?: Yes - Immunizations Immunizations are current?: Yes - POLST Patient has POLST: No PD ED PE NORMAL - Vitals Vital signs reviewed: Yes - General General: Alert and oriented X 3, Well developed/nourished, Other (appears uncomfortable. Guarding movement of left shoulder and wearing sling from home. ) - Neck Neck: Supple, no meningeal sign, No bony TTP, No adenopathy - Cardiac Cardiac: RRR, No murmur - Respiratory Respiratory: Clear bilaterally - Derm Derm: Normal color, Warm and dry - Extremities Extremities: Other (left shoulder with palpable anterior dislocation. Normal color and cap refill/pulses in wrist/hand. ) - Neuro Neuro: Alert and oriented X 3, No motor deficit, No sensory deficit, Normal speech Results - Vitals Vitals: Vital Signs - 24 hr 10/18/20 10/18/20 10/18/20 04:20 05:16 05:22 Temperature 36 C L Heart Rate 98 92 98 Respiratory 22 19 25 H Rate Blood Pressure 134/68 H 129/87 H 122/86 H O2 Saturation 98 100 100 Oxygen O2 Source Room air - Rads (name of study) left shoulder post reduction Radiology: Prelim report reviewed (normal position), See rad report Procedures - Reduction Body part reduced: Left, Shoulder Fracture or dislocation: Dislocation Anesthesia: Fentanyl, Propofol Shoulder reduction technique: [place] / ext rotation Reduction aftercare: NV intact, Xray confirms reduction, Alignment improved, Sling, Patient tolerated well PD MEDICAL DECISION MAKING - ED course Complexity details: re-evaluated patient (Gave Toradol and Fentanyl and attempted simple movement of the shoulder with gentle downward pressure. She was in considerable pain and hlding arm guardedly, so will not be able to do simple reduction without sedation. ), considered differential (anterior dislocation of shoulder. Will give IV meds for pain and attempt reduction using [place] technique. ), d/w patient Departure - Departure Clinical Impression: Shoulder dislocation, recurrent Qualifiers: Laterality: left Qualified Code(s): M24.412 - Recurrent dislocation, left shoulder Condition: Stable Record reviewed to determine appropriate education?: Yes Instructions: ED Dislocation Shoulder Redu Comments: Playing for 2 to 3 days as needed for discomfort. The muscles would have gotten a bit stretched with it being out for a while. Gentle range of motion is good. Increase use and activity with the shoulder as tolerated. Tylenol or ibuprofen as needed for pains.
[2020-10-18] MEDS ORDERED: KETOROLAC 30 MG/ML VIAL IVP STA (04:33)
[2020-10-18] MEDS ORDERED: fentaNYL 100 MCG/2 ML VIAL IVP STA ×2 (04:33→04:55)
[2020-10-18] MEDS ORDERED: SODIUM CHLORIDE 0.9% 1,000 ML IV STA (04:55)
[2020-10-18] MEDS ORDERED: PROPOFOL 200 MG/20 ML VIAL IVP STA ×2 (04:56→05:34)
[2020-10-18 06:03] VITALS: BP 117/70
--- NOTE | 2020-10-18 09:03 | XRAY Report ---
PROCEDURE: Shoulder 2 View LT INDICATIONS: post reduction TECHNIQUE: 2 views of the shoulder were acquired. COMPARISON: Prior shoulder plain films 01/18/2020. FINDINGS: Bones: No fractures or dislocations. No suspicious bony lesions. Visualized ribs appear intact. Soft tissues: No suspicious soft tissue calcifications. IMPRESSION: Currently no fracture or dislocation found. The images are clinically reported to be "po streduction". Reviewed by: Juan Sanz MD on 10/18/2020 9:02 AM PDT Approved by: Juan aSnz MD on 10/18/2020 9:02 AM PDT Station ID: [id number]
== END 2020-10-18 06:19 | disposition home or self-care (01) ==
LOC: ED 04:18
DX: M24.412 Recurrent dislocation, left shoulder (principal); X50.1XXA Overexertion from prolonged static or awkward postures, initial encounter; Y92.009 Unspecified place in unspecified non-institutional (private) residence as the place of occurrence of the external cause
CPT/HCPCS: 99152; 99284

== ENCOUNTER 2021-02-19 01:14 | Outpatient (CLI) | payer MEDICAID ==
[2021-02-19 02:06] LABS: BASOPHILS # (AUTO) 0.1 10^3/uL (0.0-0.1); BASOPHILS % (AUTO) 0.3 %; EOSINOPHILS # (AUTO) 0.4 10^3/uL (0.0-0.7); EOSINOPHILS % (AUTO) 2.6 %; HCT - HEMATOCRIT 29.4 % (37.0-47.0); HGB - HEMOGLOBIN 9.9 g/dL (12.0-16.0); LYMPHOCYTES # (AUTO) 2.6 10^3/uL (1.5-3.5); LYMPHOCYTES % (AUTO) 16.1 %; MEAN CORPUSCULAR HEMOGLOBIN 33.1 pg (27.0-31.0); MEAN CORPUSCULAR HGB CONC 33.7 g/dL (32.0-36.0); MEAN CORPUSCULAR VOLUME 98.3 fL (81.0-99.0); MEAN PLATELET VOLUME 10.1 fL (7.9-10.8); MONOCYTES # (AUTO) 1.1 10^3/uL (0.0-1.0); MONOCYTES % (AUTO) 6.8 %; NEUTROPHILS # (AUTO) 11.6 10^3/uL (1.5-6.6); NEUTROPHILS % (AUTO) 72.5 %; PLT - PLATELET COUNT 339 10^3/uL (130-450); RED BLOOD COUNT 2.99 10^6/uL (4.20-5.40); RED CELL DISTRIBUTION WIDTH 13.2 % (12.0-15.0); WHITE BLOOD COUNT 16.1 x10^3/uL (4.8-10.8)
[2021-02-19 02:07] LABS: BILIRUBIN,URINE NEGATIVE (NEGATIVE); GLUCOSE, URINE (UA) NEGATIVE (NEGATIVE); KETONES,URINE (UA) NEGATIVE (NEGATIVE); LEUKOCYTE ESTERASE, URINE MODERATE (NEGATIVE); NITRITE,URINE NEGATIVE (NEGATIVE); OCCULT BLOOD,URINE NEGATIVE (NEGATIVE); PROTEIN,URINE NEGATIVE (NEGATIVE); UROBILINOGEN,URINE 0.2 (NORMAL) E.U./dL (NORMAL)
[2021-02-19 02:08] LABS: CLARITY,URINE CLEAR (CLEAR)
[2021-02-19 02:13] LABS: BACTERIA,URINE Rare /HPF (None Seen); RBC,URINE 0-5 /HPF (0-5); SQUAMOUS EPITHELIAL CELL,UR FEW Squamous (<= Few)
--- NOTE | 2021-02-19 02:48 | PROVIDER PROGRESS NOTE ---
- HPI Current : Current EDU 02/19/21 Gestation 40 Weeks and 0 Days 7 Para 2 Vital Signs Temperature 98.6 F 02/19/21 01:35 Heart Rate 96 02/19/21 01:35 Respiratory Rate 19 02/19/21 01:35 Blood Pressure 130/83 H 02/19/21 01:35 O2 Saturation 98 02/19/21 01:35 Temperature 98.6 F 02/19/21 01:35 Heart Rate 96 02/19/21 01:35 Respiratory Rate 19 02/19/21 01:35 Blood Pressure 126/77 02/19/21 01:43 O2 Saturation 98 02/19/21 01:35 - Procedures OB Procedure Performed: NST NST Procedure: NST Procedure Start Time 02:00 Stop Time 02:47 EFM 135 mod jem 10x10 accels no decels TOCO: quiet Service Date of procedure: 02/19/21 - Plan Plan: ID: Patient 30 yo with an undated who presents with lower pubic pain. HPI: Patient has not yet established care for her . She is unsure of her LMP. She appeared to be about 30 weeks . Reports that she is feeling pain in her suprapubic area that is reminiscent of pain that occurs with labor but the pain is not believed to be contractions. Feels as though she is splitting in half. No LOF or VB. Endorses FM. Recent IC last night. Reports introital dyspareunia. Endorses asthma but no use of inhaler. Does not want to be dependent on medications. Has had E.coli UTI in the past. Endorses having surgery for a shoulder dyslocation but apparently it was reduced in the ER. Reports that she is avoiding clinic because she had been unfairly treated in the past with regard to practicing her right to decline tox screen. However, she did present to clinic last week to make an appointment to establish care. Also reports having been seen at [facility] but has not established OB care. Would like to catch up with her care as much as possible with this presentation. PMH: asthma, depression PSH: none OBHX: Has had 2 vaginal deliveries. Records show a 5 month loss and patient endorses 2 early losses. No STIs and denies HSV. Last pap confirmed to be in 08/2018, wnl and due for repeat in 2021. No abnl pap smears. Has monthly menses but no clear pattern to timing of cycles. 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 PE: GEN: NAD HEAD: NCAT EYES: No scleral icterus or conjunctival injection CV: RR RESP: normal effort ABD: S&NT/ND. 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 A/P: Patient 30 yo with an undated who presents with lower pubic pain. PELVIC PAIN: Appears to be related to pubic symphasitis -Reviewed management options -Also has elevated LE/pyuria in UA; treating with ceftriaxone 500 mg IM as reliability for fu limited -vaginitis and GCCT panel ordered PNC: Has not engaged PNC and wants to "catch up" as much as possible. A neg and Ab neg--> Rhogam to be adminsitered prior to discharge Rubella NON immune FAS: ordered but not yet completed. Will need for formal confirmation of dating Genetic testing: late to care TDAP; to be given in triage Rhogam: to be given in triage Glucola: administered in triage HSV: denies GBS: collected given unknown dating at presentation Vertex by BSUS MOD: Anticipate Pap: review of records shows last pap 08/2018 FWB: -No means of ascertaining growth since will be dated by presenting us -AGA EFM -GBS pending -Vertex Patient to discharge to home following administration of Rhogam/TdaP/ceftriaxone and completion of FAS and glucola.
[2021-02-19] MEDS ORDERED: cefTRIAXone 250 MG VIAL IM ONE (03:29)
[2021-02-19] MEDS ORDERED: LIDOCAINE 1% 2 ML VIAL MC ONE (03:29)
[2021-02-19] MEDS ORDERED: RHO(D) IMMUNE GLOBULIN 300 MCG SYRINGE IM ONE (03:29)
[2021-02-19] MEDS ORDERED: TETANUS/DIPHTHERIA/PERTUSSIS 0.5 ML SYRINGE IM ONE (03:31)
[2021-02-19 04:47] LABS: BACTERIAL VAGINOSIS DNA NEGATIVE (NEGATIVE); CANDIDA GLABRATA DNA NEGATIVE (NEGATIVE); CANDIDA GROUP DNA NEGATIVE (NEGATIVE); CANDIDA KRUSEI DNA NEGATIVE (NEGATIVE); TRICHOMONAS VAGINALIS DNA POSITIVE (NEGATIVE)
[2021-02-19 04:48] VITALS: BP 115/69
--- NOTE | 2021-02-19 08:50 | Ultrasound Report ---
PROCEDURE: OB F/U or Repeat INDICATIONS: no care; having cramping OUTSIDE/PRIOR DATING DATA: Last menstrual period (LMP): Unknown. LMP-based estimated date of delivery (JAMIR): Unknown. First dating scan (date and location): 02/19/2021. Estimated date of delivery (JAMIR) from first dating scan: 05/14/2021. The below data below was generated using the ultrasound JAMIR of 05/14/2021 TECHNIQUE: Real-time scanning was performed of the fetus, with image documentation and biometric measurements. COMPARISON: None. FINDINGS: General: A single live intrauterine gestation is present. Presentation: Vertex Placenta: Placental position is posterior/fundal, without previa. Amniotic fluid index: 19.1 cm, within normal limits for gestational age. heart rate: 136 beats per minute. Maternal cervical canal: Not well seen biometrics: Biparietal diameter: 7.2 cm equals 28 weeks 6 days Head circumference: 26 cm equals 20 weeks 2 days Abdominal circumference: 23.5 cm equals 27 weeks 6 days Femur length: 5 cm equals 26 weeks 6 days Estimated gestational age from initial scan: not applicable. Composite gestational age from present scan: 28 weeks 0 days Estimated weight and percentile: 1095 g, percentile rank not defined Measurement variability in biometric dating: +/- 10 days from 12-20 weeks gestation, +/- 2 weeks from 20-30 weeks gestation, +/- 3 weeks at 30 weeks gestation or more. Other: Not applicable. IMPRESSION: Single live intrauterine . The estimated gestational age is 28 weeks 0 days, which corresponds to an ultrasound estimated date o f delivery of 05/14/2021. Note: No significant discrepancy from the preliminary report. Reviewed by: José Glass MD on 02/19/2021 7:48 AM SILVANA Approved by: José Glass MD on 02/19/2021 7:48 AM SILVANA Station ID: [id number]
[2021-02-19 20:28] LABS: CHLAMYDIA TRACHOMATIS DNA NEGATIVE (NEGATIVE); NEISSERIA GONORRHOEAE DNA NEGATIVE (NEGATIVE)
[2021-02-19 20:30] LABS: TRICHOMONAS VAGINALIS DNA POSITIVE (NEGATIVE)
[2021-02-22 11:10] LABS: HEPATITIS B SURFACE ANTIGEN NON-REACTIVE (NON-REACTIVE)
[2021-02-22 14:37] LABS: HIV AG/AB 4TH GEN NON-REACTIVE (NON-REACTIVE)
== END 2021-02-19 04:50 | disposition home or self-care (01) ==
LOC: WFO 01:14 → EEVIPCON 01:14 → FBP 01:16 → WFO 04:50
PROVIDERS: ATTEND Obstetrics & Gynecology
DX: O23.593 Infection of other part of genital tract in pregnancy, third trimester (principal); R82.81 Pyuria; O99.013 Anemia complicating pregnancy, third trimester; O99.810 Abnormal glucose complicating pregnancy; O09.33 Supervision of pregnancy with insufficient antenatal care, third trimester; O99.333 Smoking (tobacco) complicating pregnancy, third trimester; F17.210 Nicotine dependence, cigarettes, uncomplicated; O26.893 Other specified pregnancy related conditions, third trimester; Z67.31 Type AB blood, Rh negative; Z23 Encounter for immunization; Z3A.28 28 weeks gestation of pregnancy
CPT/HCPCS: 36415; 81001; 81003; 82950; 85025; 86762; 86780; 86850; 86900; 86901; 87081; 87086; 87181; 87340; 87389; 87491; 87591; 87661; 87801; 90471; 96372; 99215

== ENCOUNTER 2021-03-02 23:51 | Emergency (ER) | payer MEDICAID ==
[2021-03-03] MEDS ORDERED: HYDROmorphone 1 MG/ML CARPUJECT IVP STA (00:16)
--- NOTE | 2021-03-03 00:26 | ED Physician Documentation ---
PD HPI UPPER EXT INJURY - Stated complaint Stated Complaint: LT SHOULDER PX - Chief complaint Chief Complaint: Ext Problem - History obtained from History obtained from: Patient - Additonal information Additional information: Patient comes emergency department chief complaint of shoulder dislocation. 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 She states she just turned her arm the "wrong way" tonight and it popped out. She states she used to be able to pop the shoulder back in herself but she cannot do it anymore. Patient states this happened roughly an hour ago. She is about 8 months and has been feeling the baby move. No other injuries or complaints. Review of Systems Ten Systems: 10 systems reviewed and negative Constitutional: reports: Reviewed and negative Eyes: reports: Reviewed and negative Ears: reports: Reviewed and negative Nose: reports: Reviewed and negative Throat: reports: Reviewed and negative Cardiac: reports: Reviewed and negative Respiratory: reports: Reviewed and negative GI: reports: Reviewed and negative : reports: Reviewed and negative Skin: reports: Reviewed and negative Musculoskeletal: reports: Joint pain Neurologic: reports: Reviewed and negative Psychiatric: reports: Reviewed and negative Endocrine: reports: Reviewed and negative Immunocompromised: reports: Reviewed and negative PD PAST MEDICAL HISTORY - Past Medical History Cardiovascular: None Respiratory: Asthma Neuro: None Endocrine/Autoimmune: None GI: None [employer]IC[employer]: None : None HEENT: None Psych: Depression, Post traumatic stress disorder Musculoskeletal: Other Derm: None - Past Surgical History Past Surgical History: Yes Ortho: Other - Present Medications Home Medications: Ambulatory Orders Medication Instructions Recorded Confirmed Amox/Clav 875/125 [Augmentin 1 tablet PO Q12H 03/03/21 03/03/21 875/125 Tab] Ferrous Sulfate 325 mg PO DAILY 03/03/21 03/03/21 - Allergies Allergies/Adverse Reactions: Allergies Allergy/AdvReac Type Severity Reaction Status Date / Time aspirin Allergy Mild Hives Verified 03/03/21 00:14 divalproex sodium Allergy Hives Verified 03/03/21 00:14 [From Depakote] - Social History Does the pt smoke?: Yes Smoking Status: Current every day smoker Does the pt drink ETOH?: No Does the pt have substance abuse?: Yes - Immunizations Immunizations are current?: Yes - POLST Patient has POLST: No PD ED PE NORMAL - Vitals Vital signs reviewed: Yes - General General: Alert and oriented X 3, No acute distress, Well developed/nourished - HEENT HEENT: Atraumatic, PERRL, EOMI, Moist mucous membranes - Neck Neck: Supple, no meningeal sign - Cardiac Cardiac: RRR, No murmur, Strong equal pulses - Respiratory Respiratory: No respiratory distress, Clear bilaterally - Derm Derm: Normal color, Warm and dry, No rash - Extremities Extremities: No deformity, Other (Concavity noted inferior to the glenoid rim. Limited range of motion of left upper extremity, which is held in an internally rotated position, flexed at the elbow.) - Neuro Neuro: Alert and oriented X 3 - Psych Psych: Normal mood, Normal affect Results - Vitals Vitals: Vital Signs - 24 hr 03/03/21 03/03/21 03/03/21 00:05 01:09 01:14 Temperature 37.2 C Heart Rate 97 86 95 Respiratory 20 15 18 Rate Blood Pressure 128/88 H 134/77 H 129/89 H O2 Saturation 100 100 100 03/03/21 03/03/21 03/03/21 01:16 01:18 01:25 Temperature Heart Rate 92 98 88 Respiratory 17 19 18 Rate Blood Pressure 127/77 145/85 H 138/93 H O2 Saturation 100 100 99 03/03/21 03/03/21 01:30 01:40 Temperature Heart Rate 91 93 Respiratory 20 18 Rate Blood Pressure 138/93 H 136/81 H O2 Saturation 98 100 Oxygen O2 Source Room air Procedures - Reduction Body part reduced: Left, Shoulder Fracture or dislocation: Dislocation Anesthesia: Other (propofol) Shoulder reduction technique: Traction - counter tract Reduction aftercare: NV intact, Xray confirms reduction, Alignment improved, Sling, Patient tolerated well - Procedural sedation Mallampati classification: I Sedation prep: Informed consent Sedation medications: dilaudid, propofol Patient status during sedation: Drowsy, Vitals remained stable, Maintained airway, Recovered uneventfully Sedation recovery: Recovered uneventfully, Back to baseline Time in sedation (Minutes): 5 PD MEDICAL DECISION MAKING - ED course Complexity details: reviewed results, re-evaluated patient, considered differential, d/w patient ED course: X-ray of the patient's left shoulder was performed and showed an anterior dislocation. I spoke with Dr. Naqvi who was on-call for OB, to determine whether the patient could be given procedural sedation with propofol while in her third trimester. Dr. Naqvi felt that for the short duration required for a reduction procedure, propofol should be fine. At her recommendation, we did call OB nurse to perform continuous monitoring during the procedure. The patient did sign informed consent and respiratory therapist was at bedside to manage the patient's oxygen and airway. The patient was initially given 100 mg of propofol IV, which made her somewhat drowsy, but did not not fully sedate/anesthetize her. As such, she was given another 25 mg IV of propofol, but once again this did not completely render the patient unconscious. A further dose of 25 mg was given and patient's heart tones were noted to have dropped from the 140s to 160s down into the 120s. The patient would appear asleep but then wake up with minimal stimulation. I discussed with the patient at this point that we would need to try to reduce her shoulder with the sedation we had, as I did not want to risk lowering the heart rate any further. Shoulder was successfully reduced and reduction was demonstrated by repeat x- ray. Patient recovered uneventfully and some counseling was done by OB nursing staff, regarding the patient's history of drug abuse and the current social situation at her home. It was confirmed that the patient has an appointment coming up next week and patient was reminded of the date and time so that she can come for her third trimester care. The patient's arm has been placed in a sling and we have discussed the need to wear the sling for the next week. We have also discussed the need for orthopedic follow-up. Departure - Departure Disposition: 01 Home, Self Care Clinical Impression: Third trimester at less than 36 weeks Shoulder dislocation Qualifiers: Encounter type: initial encounter Laterality: left Qualified Code(s): S43.005A - Unspecified dislocation of left shoulder joint, initial encounter Condition: Stable Instructions: ED Dislocation Shoulder Redu, ED Sling Follow-Up: Samuel Abdullahi MD [Provider Admit Priv/Credential] - Comments: Your shoulder dislocation has been reduced. Please keep your arm in the sling for the next week to allow your shoulder to firm up again and to try to avoid dislocating it again. It is very important that you follow-up with OB, as planned, especially in the third trimester. Please keep your upcoming appointment. You should also consider following up with orthopedics to discuss whether there is any surgical procedure that can be done to help improve the stability of your shoulder.
[2021-03-03] MEDS ORDERED: PROPOFOL 200 MG/20 ML VIAL IVP STA (00:58)
[2021-03-03] MEDS ORDERED: SODIUM CHLORIDE 0.9% 1,000 ML IV STA (00:58)
[2021-03-03 02:32] VITALS: BP 117/58
--- NOTE | 2021-03-03 08:24 | XRAY Report ---
PROCEDURE: Shoulder 2 View LT INDICATIONS: dislocation/pain TECHNIQUE: 2 views of the shoulder were acquired. COMPARISON: None. FINDINGS: Bones: Anterior-inferior dislocation of the left humerus. No suspicious bony lesions. Visualized rib s appear intact. Soft tissues: No suspicious soft tissue calcifications. IMPRESSION: Anterior left shoulder dislocation. Reviewed by: Ana Perera MD, PhD on 03/03/2021 8:22 AM PDT Approved by: Ana Perera MD, PhD on 03/03/2021 8:22 AM PDT Station ID: [id number]
--- NOTE | 2021-03-03 08:27 | XRAY Report ---
PROCEDURE: Shoulder 1 View LT INDICATIONS: reduction TECHNIQUE: 1 views of the shoulder were acquired. COMPARISON: None. FINDINGS: Bones: Normal association of the humerus with the glenoid following reduction of left shoulder disloc ation. No suspicious bony lesions. Visualized ribs appear intact. Soft tissues: No suspicious soft tissue calcifications. IMPRESSION: Status post left shoulder dislocation reduction with anatomic alignment. Reviewed by: Ana Perera MD, PhD on 03/03/2021 8:25 AM PDT Approved by: Ana Perera MD, PhD on 03/03/2021 8:25 AM PDT Station ID: [id number]
== END 2021-03-03 02:25 | disposition home or self-care (01) ==
LOC: ED 23:51
DX: O9A.213 Injury, poisoning and certain other consequences of external causes complicating pregnancy, third trimester (principal); S43.005A Unspecified dislocation of left shoulder joint, initial encounter; X58.XXXA Exposure to other specified factors, initial encounter; O99.333 Smoking (tobacco) complicating pregnancy, third trimester; Z3A.35 35 weeks gestation of pregnancy
CPT/HCPCS: 23650; 73020; 73030; 99284; 99285; J1170; 83036; 85025; 86762; 86787; 86850; 86900; 86901; 87340; 87389; 87491; 87591; 87661; 94770

== ENCOUNTER 2021-03-24 13:05 | Outpatient (CLI) | payer MEDICAID ==
[2021-03-24 13:20] VITALS: BP 129/73
[2021-03-24 14:03] LABS: RUPTURE OF MEMBRANES PLUS NEGATIVE (NEGATIVE)
--- NOTE | 2021-03-24 14:34 | PROVIDER PROGRESS NOTE ---
- HPI Chief Complaint: Leakage of vaginal fluid Current : Current EDU 05/14/21 Gestation 32 Weeks and 5 Days 6 Para 2 Vital Signs Temperature 98.2 F 03/24/21 13:16 Heart Rate 91 03/24/21 13:16 Respiratory Rate 18 03/24/21 13:16 Blood Pressure 129/73 03/24/21 13:16 Temperature 98.2 F 03/24/21 13:16 Heart Rate 91 03/24/21 13:16 Respiratory Rate 18 03/24/21 13:16 Blood Pressure 129/73 03/24/21 13:16 O2 Saturation Patient presenting with gush of fluid after using restroom. Did have intercourse this morning. No additional gushed of fluid. Not blood stained. No significant contractions. Good movement. No bleeding. PMH: asthma, depression, anemia PSH: Denies OBHX: One loss as approximately 5 months No history of STIs No history of abnormal Pap smears SOC HX: Patient lives in [place] with and 2 children Hx of homelessness Tobacco: 10 cigarettes/week Alcohol: None Drugs: None FH: DM: mother, grandmother, aunt Cancer: none CVD: MGM HTN: MGM asthma: father ROS: As per HPI, otherwise remaining systems are negative. PE: GEN: No acute distress HEAD: Normocephalic atraumatic EYES: No scleral icterus or conjunctival injection CV: Regular rate RESP: No respiratory distress ABD: S&NT/ND. Mild to moderate point tenderness at pubic symphasis PSYCH: Oriented to person, place, time. Appropriate affect, NEURO: alert and oriented x 3, normal affect EXT: WWP SVE: 0/0 is -3, medium consistency, posterior - Exam SVE: 0/0/-3. Medium consistenct, Posterior Rom test negative. - Procedures OB Procedure Performed: NST NST Procedure: NST Procedure Start Date 03/24/21 Start Time 13:15 Stop Time 14:10 Vibroacoustic Stimulation Used No Patient States Movement Yes Service Date of procedure: 03/24/21 Procedure Details: FHT: 130 BPM Baseline, moderate variability, accelerations present, no decelerations CTX. Rare, 1 in one hour Findings: Reactive NST - Plan Plan: 30-year-old at 32 weeks 5 days gestation with 1. Rule out rupture of membranes -Negative ROM test. Reactive NST. One contraction in one hour. Patient educated on leaking after intercourse and possible urinary leaking in . -NST is reactive -Discharged with labor precautions.
== END 2021-03-24 14:40 | disposition home or self-care (01) ==
LOC: WFO 13:05 → FBP 13:09 → WFO 14:40
PROVIDERS: ATTEND Obstetrics & Gynecology
DX: O99.891 Other specified diseases and conditions complicating pregnancy (principal); N89.8 Other specified noninflammatory disorders of vagina; O99.333 Smoking (tobacco) complicating pregnancy, third trimester; F17.210 Nicotine dependence, cigarettes, uncomplicated; Z3A.32 32 weeks gestation of pregnancy
CPT/HCPCS: 59025; 84112; 99212

== ENCOUNTER 2021-04-22 08:00 | Outpatient (CLI) | payer MEDICAID ==
[2021-04-22 16:36] LABS: MUDS CUTOFF CONCENTRATIONS CUTOFF CONC BELOW:
[2021-04-22 16:59] LABS: AMPHETAMINE SCREEN,URINE NEGATIVE (NEGATIVE); BARBITURATE SCREEN,UR NEGATIVE (NEGATIVE); BENZODIAZEPINES SCREEN, URINE NEGATIVE (NEGATIVE); COCAINE SCREEN URINE NEGATIVE (NEGATIVE); METHADONE SCREEN, URINE NEGATIVE (NEGATIVE); METHAMPHETAMINES SCREEN, URINE NEGATIVE (NEGATIVE); OPIATE SCREEN, URINE NEGATIVE (NEGATIVE); OXYCODONE SCREEN, URINE NEGATIVE (NEGATIVE); PROPOXYPHENE SCREEN, URINE NEGATIVE (NEGATIVE); THC CANNABINOID SCREEN, URINE NEGATIVE (NEGATIVE); TRICYCLIC ANTIDEPRESSANT,URINE NEGATIVE (NEGATIVE)
[2021-04-22 21:00] LABS: CHLAMYDIA TRACHOMATIS DNA NEGATIVE (NEGATIVE); NEISSERIA GONORRHOEAE DNA NEGATIVE (NEGATIVE); TRICHOMONAS VAGINALIS DNA NEGATIVE (NEGATIVE)
== END 2021-04-22 23:59 | disposition home or self-care (01) ==
LOC: LAB 08:00
PROVIDERS: ATTEND Obstetrics & Gynecology
DX: Z36.89 Encounter for other specified antenatal screening (principal); Z36.85 Encounter for antenatal screening for Streptococcus B
CPT/HCPCS: 80306; 87491; 87591; 87661; 87797

== ENCOUNTER 2021-04-22 12:08 | Outpatient (CLI) | payer MEDICAID ==
--- NOTE | 2021-04-22 18:08 | Ultrasound Report ---
PROCEDURE: OB Detailed Eval INDICATIONS: SUPERVISION OF HIGH RISK OUTSIDE/PRIOR DATING DATA: Last menstrual period (LMP): Unknown. LMP-based estimated date of delivery (JAMIR): Not applicable. First dating scan (date and location): 02/19/2021. Estimated date of delivery (JAMIR) from first dating scan: 05/14/2021. The below data below was generated using the sonographically generated JAMIR of 05/14/2021 TECHNIQUE: Real-time scanning was performed of the fetus, with image documentation and biometric measurements. Endovaginal scanning: Not performed COMPARISON: None. FINDINGS: General: A single living intrauterine gestation is present. Presentation: Vertex Placenta: Placental position is posterior fundal, without previa. Amniotic fluid index: 21.4 cm, with largest vertical pocket of 7.0 cm heart rate: 138 beats per minute. Maternal cervical canal: 3.9 cm long; normal length is 2.5 cm or more. biometrics: Biparietal diameter: 9.3 cm, 37 weeks 6 days Head circumference: 32.9 cm, 37 weeks 3 days Abdominal circumference: 33.1 cm, 37 weeks 0 days Femur length: 6.6 cm, 33 weeks and 6 days (this falls in the 2nd percentile for gestational age) Estimated gestational age from initial scan: 36 weeks and 6 days. Composite gestational age from present scan: 36 weeks and 4 days Estimated weight and percentile: 2916 g, 42nd percentile Measurement variability in biometric dating: +/- 10 days from 12-20 weeks gestation, +/- 2 weeks from 20-30 weeks gestation, +/- 3 weeks at 30 weeks gestation or later. Anatomic survey: Neuro: Ventricles are normal at less than 10 mm. Cisterna magna is normal at 3-11 mm. Cerebellum i s normal in size and morphology. Nuchal skin fold: Nuchal region not well visualized secondary to advanced gestational age Face: Nose and lips, facial profile are normal. Spine: No evidence for spina bifida. Heart: 4-chambered heart is present, with normal ventricular outflow tracts. Diaphragm: Diaphragm is intact. Stomach: Left-sided stomach is present. Kidneys: No hydronephrosis. Normal is less than 5 mm in 2nd trimester, less than 7 mm in 3rd trimester. Cord: 3 vessel cord has orthotopic insertion. Bladder: Normal in size. Extremities: All 4 extremities are visualized. IMPRESSION: 1. Single living intrauterine gestation with an estimated sonographic gestational age of approximatel y 36 weeks and 4 days versus 36 weeks and 6 days by initial ultrasound. Expected interval growth has occurred. 2. Estimated weight of 2916 g which places the fetus within the 42nd percentile for gestational age. However, the femur length measures at the 2nd percentile. 3. Limited visualization of nuchal region secondary to advanced gestational age at time of evaluation . Otherwise, unremarkable anatomic survey. 4. Four-quadrant OSITO of 21.4 cm with largest vertical pocket of 7.0 cm. Reviewed by: Faizan Chacon MD on 04/22/2021 6:06 PM PDT Approved by: Faizan Chacon MD on 04/22/2021 6:06 PM PDT Station ID: [id number]
== END 2021-04-22 12:09 | disposition home or self-care (01) ==
LOC: DI 12:08
PROVIDERS: ATTEND Obstetrics & Gynecology
DX: O09.93 Supervision of high risk pregnancy, unspecified, third trimester (principal); Z3A.36 36 weeks gestation of pregnancy; Z36.89 Encounter for other specified antenatal screening; Z36.85 Encounter for antenatal screening for Streptococcus B
CPT/HCPCS: 80306; 81001; 86803; 87086; 87491; 87591; 87661; 87797

== ENCOUNTER 2021-04-22 13:35 | Outpatient (CLI) | payer MEDICAID ==
[2021-05-03 08:30] LABS: HEPATITIS C ANTIBODY NON-REACTIVE
== END 2021-04-22 13:36 | disposition home or self-care (01) ==
LOC: LAB 13:35
PROVIDERS: ATTEND Obstetrics & Gynecology
DX: O09.90 Supervision of high risk pregnancy, unspecified, unspecified trimester (principal)
CPT/HCPCS: 80306; 81001; 86803; 87086

== ENCOUNTER 2021-05-09 07:13 | Inpatient (IN) | payer MEDICAID ==
[2021-05-09] MEDS ORDERED: OXYTOCIN 10 UNIT/ML VIAL IM PRN (10:19)
[2021-05-09] MEDS ORDERED: fentaNYL 100 MCG/2 ML VIAL IVP PRN (10:19)
[2021-05-09] MEDS ORDERED: OXYTOCIN/SODIUM CHLORIDE 500 ML IV PRN ×2 (10:19)
[2021-05-09] MEDS ORDERED: SODIUM CHLORIDE FLUSH 0.9% 10 ML SYRINGE IVP PRN (10:19)
[2021-05-09] MEDS ORDERED: METOCLOPRAMIDE 10 MG/2 ML VIAL IVP PRN (10:19)
[2021-05-09] MEDS ORDERED: METHYLERGONOVINE 0.2 MG/ML VIAL IM PRN (10:19)
[2021-05-09] MEDS ORDERED: ONDANSETRON 4 MG/2 ML VIAL IVP PRN (10:19)
[2021-05-09] MEDS ORDERED: LIDOCAINE-MPF 1% 30 ML VIAL ID PRN (10:19)
[2021-05-09] MEDS ORDERED: LABETALOL 20 MG/4 ML SYRINGE IVP PRN (10:19)
[2021-05-09] MEDS ORDERED: miSOPROStoL 200 MCG TABLET PO ONE (10:19)
[2021-05-09] MEDS ORDERED: CARBOPROST TROMETHAMINE 250 MCG/ML AMP IM PRN (10:19)
[2021-05-09] MEDS ORDERED: miSOPROStoL 200 MCG TABLET BC PRN (10:19)
[2021-05-09] MEDS ORDERED: TRANEXAMIC ACID IN NACL 1,000 MG/100 ML BAG IV PRN (10:19)
--- NOTE | 2021-05-09 10:49 | HISTORY & PHYSICAL EXAMINATION ---
Admit History - Visit Reason Visit Reason: Other (Elective Induction of labor 39 08/08) - : 6 Parity: 2 : 3, 2008 SAB, 2015 D&E for maternal hemorrhage at 20 weeks, 2019 Care: positive: Other ([facility] Women[facility] care, Late to care, started at 22 weeks as ED patient.) Risk/History: positive: Other (History of illicit drug use in the past, no positive tests during this . Abnormal I hour GTT, refused 3 hour GTT. One hour was 168. Rubella Non-Immune. A negative blood type.) Smoking Status: Current every day smoker - Mother's Labs Mother's Blood Type: positive: A Mother's RH: positive: Negative GBS: positive: Group B Step Negative Rubella Status: positive: Non-immune Meds/Allgy - Home Medications Home Medications: Ambulatory Orders Medication Instructions Recorded Confirmed Amox/Clav 875/125 [Augmentin 1 tablet PO Q12H 03/03/21 03/03/21 875/125 Tab] Ferrous Sulfate 325 mg PO DAILY 03/03/21 03/03/21 - Allergies Allergies/Adverse Reactions: Allergies Allergy/AdvReac Type Severity Reaction Status Date / Time aspirin Allergy Mild Hives Verified 03/03/21 00:14 divalproex sodium Allergy Hives Verified 03/03/21 00:14 [From Merged With [facility]] Review of Systems - Constitutional Constitutional: denies: Fatigue, Fever - Cardiovascular Cariovascular: denies: Irregular heart rate, Palpitations, Chest pain - Respiratory Respiratory: denies: Cough, Sputum production, Wheezing - Gastrointestinal Gastrointestinal: denies: Abdominal pain - Genitourinary Genitourinary: denies: Dysuria, Frequency, Urgency - Integumentary Integumentary: denies: Rash - Neurological Neurological: denies: General weakness - Psychiatric Psychiatric: denies: Depression Physical - Abdominal Exam Vital Signs: Temp Pulse Resp BP Pulse Ox 98.6 F 90 20 132/71 H 05/09/21 07:34 05/09/21 07:34 05/09/21 07:34 05/09/21 07:34 Contraction Frequency (min/apart): Irregular contractions on monitor, patient is not feeling them. Contraction Intensity: positive: Mild Uterine Resting Tone: positive: Soft - Monitoring Heart Rate Baseline: 140 Strip Review: positive: Category I - Presentation Presentation: positive: Vertex - Vaginal Exam Membranes: positive: Membranes intact Dilation (in cm): 1 Effacement (%): Long Station: positive: -3, Ballotable Cervical Position: positive: Midposition - Speculum Exam Speculum Exam Performed: positive: No - Other Notes Labor Progress Note/Additional Text: 30 yo at 39 2/7 weeks presents for Induction of labor. Patient's care started at 22 weeks when she was seen in the ED. Patient had elevated 1hour GTT at 168 and refused 3 hour GTT screening. O- VSS, Afebrile. General: Patient is sitting in chair and in no acute distress. Chest: Clear to auscultation. Good breath sounds in all kruse. Heart: RRR without murmur or gallop. Abdomen: Soft, Gravid, non-tender to palpation Extremities: No edema, no calf tenderness. CX: 1/long/-3, ballotable, soft and midposition Examined by RN. Monitor is baseline 140's with moderate variability and accelerations without decelerations. Irregular contractions are present. Category I at this time. Discussed plan of induction with patient and partner. Patient is not vaccinated for Covid and is willing to have rapid Covid test performed. Patient is willing to have drug screening performed on her and on infant. Patient and partner expressed that they appreciate open communication about everything about their care and the care of their infant. A-IUP 39 2/7 presents for elective induction. P- Begin Induction of labor with Pitocin. Continuous monitoring. Urine toxi cology screening today. Covid test today. Patient desires epidural when appropriate.
[2021-05-09 11:00] LABS: BASOPHILS % (AUTO) 0.2 %; EOSINOPHILS # (AUTO) 0.3 10^3/uL (0.0-0.7); EOSINOPHILS % (AUTO) 2.4 %; HCT - HEMATOCRIT 31.6 % (37.0-47.0); HGB - HEMOGLOBIN 10.7 g/dL (12.0-16.0); LYMPHOCYTES # (AUTO) 2.3 10^3/uL (1.5-3.5); LYMPHOCYTES % (AUTO) 18.4 %; MEAN CORPUSCULAR HEMOGLOBIN 33.3 pg (27.0-31.0); MEAN CORPUSCULAR HGB CONC 33.9 g/dL (32.0-36.0); MEAN CORPUSCULAR VOLUME 98.4 fL (81.0-99.0); MEAN PLATELET VOLUME 11.7 fL (7.9-10.8); MONOCYTES # (AUTO) 0.9 10^3/uL (0.0-1.0); MONOCYTES % (AUTO) 7.1 %; NEUTROPHILS % (AUTO) 71.1 %; PLT - PLATELET COUNT 307 10^3/uL (130-450); RED BLOOD COUNT 3.21 10^6/uL (4.20-5.40); RED CELL DISTRIBUTION WIDTH 13.7 % (12.0-15.0); WHITE BLOOD COUNT 12.6 x10^3/uL (4.8-10.8)
[2021-05-09] MEDS ORDERED: TERBUTALINE 1 MG/ML VIAL SUBQ SCH (11:00)
[2021-05-09] MEDS: OXYTOCIN/SODIUM CHLORIDE 500 ML IV SCH (11:00)
[2021-05-09 11:06] LABS: MUDS CUTOFF CONCENTRATIONS CUTOFF CONC BELOW:
[2021-05-09] MEDS: LACTATED RINGERS 1,000 ML IV SCH (11:06)
[2021-05-09 11:18] LABS: AMPHETAMINE SCREEN,URINE NEGATIVE (NEGATIVE); BARBITURATE SCREEN,UR NEGATIVE (NEGATIVE); BENZODIAZEPINES SCREEN, URINE NEGATIVE (NEGATIVE); COCAINE SCREEN URINE NEGATIVE (NEGATIVE); METHADONE SCREEN, URINE NEGATIVE (NEGATIVE); METHAMPHETAMINES SCREEN, URINE NEGATIVE (NEGATIVE); OPIATE SCREEN, URINE NEGATIVE (NEGATIVE); OXYCODONE SCREEN, URINE NEGATIVE (NEGATIVE); PROPOXYPHENE SCREEN, URINE NEGATIVE (NEGATIVE); THC CANNABINOID SCREEN, URINE NEGATIVE (NEGATIVE); TRICYCLIC ANTIDEPRESSANT,URINE NEGATIVE (NEGATIVE)
[2021-05-09 12:24] LABS: ESTIMATED AVERAGE GLUCOSE 103 mg/dL (70-100); HEMOGLOBIN A1c% 5.2 % (4.27-6.07)
[2021-05-09] MEDS ORDERED: SODIUM CHLORIDE FLUSH 0.9% 10 ML SYRINGE IVP SCH (17:00)
--- NOTE | 2021-05-09 19:46 | PROVIDER PROGRESS NOTE ---
Labor Progress Note - Uterine Monitoring Contraction Frequency (min/apart): 2-3 Contraction Intensity: positive: Mild Uterine Resting Tone: positive: Soft - Monitoring Monitor Mode: positive: External ultrasound Heart Rate Baseline: 130 Heart Rate Variability: positive: Moderate (6-25 bmp) Accelerations: positive: Present, 15x15 Decelerations: positive: None - Vaginal Exam Dilation (in cm): 2 Effacement (%): 50 Station: -3, Ballotable Cervical Position: Posterior - Labor Progress Note Labor Progress Note/Additional Text: KIM Bang checked patient and stated she was still ballotable. Ultrasound performed at bedside and fetus is now breech position, with head in maternal Right upper quadrant. Several pockets of amniotic fluid present. Monitor has been in 130's with moderate variability and Accelerations all day. No decelerations. Contractions were every 1-2 when Pitocin turned off. Category I monitor strip. Discussed Breech presentation with patient and partner. Discussed it with Dr. Torres. A-IUP 39 2/7 Breech presentation. P- NPO after midnight. Place on monitor at 10:00am and attempt to have epidural placed around 10:[address] Torres will attempt version after his 10:45am case and if unsucessful will proceed with Primary Low Transverse Section. Discussed plan with Cardiovascular Surgeon, Patient's night nurse and Labor and Delivery Charge nurse.
--- NOTE | 2021-05-10 10:01 | ANESTHESIA ---
Pre-Anesthesia VS, & Labs - Diagnosis breech presentation - Procedure Version possible c section Vital Signs: Temp Pulse Resp BP Pulse Ox 36.5 C 86 17 119/70 100 05/10/21 08:00 05/10/21 08:00 05/10/21 08:00 05/10/21 08:00 05/10/21 08:00 Height: 5 ft 4 in Weight (kg): 87.725 kg Body Mass Index: 33.2 BMI Classification: Obese - NPO >8 hours - Is Patient ?: Yes - Lab Results Current Lab Results: Laboratory Tests 05/09/21 10:40: Estimat Average Glucose 103 H, Hemoglobin A1c % 5.2 05/09/21 10:40: WBC 12.6 H, RBC 3.21 L, Hgb 10.7 L, Hct 31.6 L, MCV 98.4, MCH 33.3 H, MCHC 33.9, RDW 13.7, Plt Count 307, MPV 11.7 H, Neut # (Auto) 9.0 H, Lymph # (Auto) 2.3, [place] # (Auto) 0.9, Eos # (Auto) 0.3, Baso # (Auto) 0.0, Absolute Nucleated RBC 0.00, Nucleated RBC % 0.0 05/09/21 10:40: Blood Type A NEGATIVE, Antibody Screen NEGATIVE 05/09/21 10:15: Urine Opiates Screen NEGATIVE, Ur Oxycodone Screen NEGATIVE, Urine Methadone Screen NEGATIVE, Ur Propoxyphene Screen NEGATIVE, Ur Barbiturates Screen NEGATIVE, Ur Tricyclics Screen NEGATIVE, Ur Phencyclidine Sc rn NEGATIVE, Ur Amphetamine Screen NEGATIVE, U Methamphetamines Scrn NEGATIVE, U Benzodiazepines Scrn NEGATIVE, Urine Cocaine Screen NEGATIVE, U Cannabinoids Screen NEGATIVE Lab results reviewed: Yes Fish Bones: 05/09/21 10:40 Home Medications and Allergies Active Medications Acetaminophen (Acetaminophen 325 Mg Tablet) 650 mg PO Q6H PRN PRN Reason: Pain or Fever Carboprost Tromethamine (Carboprost Tromethamine 250 Mcg/Ml Amp) 250 mcg IM Q15M PRN PRN Reason: Step 4: Hemorrhage protocol Stop: 05/14/21 10:20 Fentanyl (Fentanyl 100 Mcg/2 Ml Vial) 50 mcg IVP Q1H PRN PRN Reason: PAIN Lactated Ringer's (Lr) 1,000 mls @ 100 mls/hr IV .Q10H NELSY Last Admin: 05/09/21 11:06 Dose: 100 mls/hr Documented by: Oxytocin/Sodium Chloride (Pitocin/Sodium Chloride) 500 mls @ 999 mls/hr IV PRN PRN; Protocol PRN Reason: POST- HEMORR PREVENTION Stop: 05/14/21 10:20 Tranexamic Acid (Tranexamic 1,000 Mg/100ml-Nacl) 1,000 mg in 100 mls @ 600 mls/hr IV .ONCE PRN PRN Reason: EBL >1200mL and within 3hr Stop: 05/14/21 10:20 Oxytocin/Sodium Chloride (Pitocin/Sodium Chloride) 500 mls @ 999 mls/hr IV PRN PRN; Protocol PRN Reason: POST- HEMORR PREVENTION Oxytocin/Sodium Chloride (Pitocin/Sodium Chloride) 500 mls @ 1 mls/hr IV TITR NELSY; Protocol Last Titration: 05/09/21 17:25 Dose: 7 milliunit/min, 7 mls/hr Documented by: Labetalol HCl (Labetalol 20 Mg/4 Ml Syringe) 20 - 80 mg IVP Q10M PRN; Protocol PRN Reason: SBP >160 or DBP >110 Lidocaine HCl (Lidocaine-Mpf 1% 30 Ml Vial) 30 ml ID .ONCE PRN PRN Reason: PERINEAL REPAIR Stop: 05/14/21 10:20 Methylergonovine Maleate (Methylergonovine 0.2 Mg/Ml Vial) 0.2 mg IM .ONCE PRN PRN Reason: Step 2: Hemorrhage protocol Stop: 05/14/21 10:20 Metoclopramide HCl (Metoclopramide 10 Mg/2 Ml Vial) 10 mg IVP Q6H PRN PRN Reason: Nausea / Vomiting Misoprostol (Misoprostol 200 Mcg Tablet) 800 mcg BC .ONCE PRN PRN Reason: Step 3: Hemorrhage protocol Stop: 05/14/21 10:20 Ondansetron HCl (Ondansetron 4 Mg/2 Ml Vial) 4 mg IVP Q4HR PRN PRN Reason: Nausea / Vomiting Oxytocin (Oxytocin 10 Unit/Ml Vial) 10 unit IM .ONCE PRN PRN Reason: Step one: If no IV access Stop: 05/14/21 10:20 Sodium Chloride (Sodium Chloride Flush 0.9% 10 Ml Syringe) 10 ml IVP 0100,0900,1700 NELSY Sodium Chloride (Sodium Chloride Flush 0.9% 10 Ml Syringe) 10 ml IVP PRN PRN PRN Reason: NEEDED PER PROVIDER ORDERS Terbutaline Sulfate (Terbutaline 1 Mg/Ml Vial) 0.25 mg SUBQ Q1H NELSY Amox/Clav 875/125 [Augmentin 875/125 Tab] 1 tablet PO Q12H 03/03/21 Ferrous Sulfate 325 mg PO DAILY 03/03/21 Allergies/Adverse Reactions: Allergies Allergy/AdvReac Type Severity Reaction Status Date / Time aspirin Allergy Mild Hives Verified 03/03/21 00:14 divalproex sodium Allergy Hives Verified 03/03/21 00:14 [From Depakote] Anes History & Medical History - Anesthetic History Anesthesia Complications: reports: No previous complications Family history of Anesthesia Complications: Denies Family history of Malignant Hyperthermia: Denies - Medical History Cardiovascular: reports: None Pulmonary: reports: Asthma Gastrointestinal: reports: None Urinary: reports: None Neuro: reports: None Musculoskeletal: reports: Other Endocrine/Autoimmune: reports: None Blood Disorders: reports: None Skin: reports: None Smoking Status: Current every day smoker - Surgical History Orthopedic: reports: Other - Obstetrical History : 6 Parity: 2 Events: reports: Other (History of illicit drug use in the past, no positive tests during this . Abnormal I hour GTT, refused 3 hour GTT. One hour was 168. Rubella Non-Immune. A negative blood type.) Exam General: Alert, Oriented x3, Cooperative, No acute distress Dental: WNL Mouth Openin Fingerbreadth Neck Mobility: Normal Mallampati classification: II Respiratory: Lungs clear, Normal breath sounds, No respiratory distress, No accessory muscle use Cardiovascular: Regular rate, Normal S1, Normal S2, No murmurs Plan Anesthesia Type: General (backup), Spinal (cse), Epidural (CSE) Consent for Procedure(s) Verified and Reviewed: Yes Code Status: Attempt Resuscitation ASA classification: 2-Mild systemic disease Is this case an emergency?: No
[2021-05-10] MEDS ORDERED: fentaNYL 100 MCG/2 ML VIAL ONE (11:39)
[2021-05-10] MEDS: LACTATED RINGERS 1,000 ML IV SCH (13:40)
[2021-05-10] MEDS ORDERED: ONDANSETRON 4 MG/2 ML VIAL ONE (13:53)
[2021-05-10] MEDS ORDERED: PHENYLEPHRINE 10 MG/ML VIAL ONE (14:37)
--- NOTE | 2021-05-10 14:50 | POST OP PROGRESS NOTE ---
Subjective - General Admit Date: 05/09/21 Procedure Date: 05/10/21 Post Op Days: 0 Procedure Performed: External Cephalic Version - Other Other Information/Narrative: Surgeon: Francisco Alford MD [employer] Manager: Montez Powell MD Preoperative diagnosis: Breech presentation, 2 prior vaginal deliveries, 39 weeks gestation Postop diagnoses cephalic presentation, successful version, 39 weeks gestation Findings: Stable heart rate pre and post procedure. Maternal hypotension post procedure. Procedure note prior to the, patient had heart tones checked. Previous NST in the day was category 1 with a baseline of 125 bpm, moderate ability, accelerations present and without decelerations. She was have intermittent contractions, although these were not felt by the patient. In the OR, she received a combined spinal epidural and was placed in the dorsal supine position with a left lateral tilt. heart tones were again noted to be 155 bpm by bedside ultrasound. Adequate amniotic fluid was noted. At that time fetus was in ayse breech position with head to maternal right and spine up. A dose of 250 mcg of 0.25 mg of terbutaline was given subcutaneously to the patient. The patient is placed in slight Trendelenburg position, and using intermittent ultrasound, gentle pressure was applied to the patient's belly, lifting the buttocks from the patient's lower uterus and slowly rotating the head in an anterior motion. The patient tolerated the procedure ultrasound was used to confirm presentation. The patient was then placed in reverse Trendelenburg and abdominal binder was placed to hold the monitors. After the procedure, patient became hypotensive in the 70s over 40s and received IV and a dose of IM ephedrine by the anesthesia provider. Patient's blood pressure normalized, she was taken back to the labor and delivery room to recover. No evidence of PROM or placental abruption. Patient tolerated the procedure well and fetus appeared to have no ill effects.
--- NOTE | 2021-05-10 14:50 | PROVIDER PROGRESS NOTE ---
Progress Note Patient is a 30-year-old who was admitted for induction of labor yesterday, but was found to be in breech presentation. She is otherwise oxytocin was discontinued last night after patient was found to be in breech presentation. We discussed this morning to perform external cephalic version and if unsuccessful convert to section. Patient is amenable to this, and would like to try. Plan to perform in the OR for possible conversion to section. Physical Constitutional: alert, no acute distress, well hydrated, well developed, well nourished, Skin: normal turgor, normal color. Head: atraumatic, normocephalic. Cardiovascular: RRR. Respiratory: no respiratory distress. Abdomen: nondistended, nontender. Spine: normal mobility. Neurologic: normal, sensation intact, motor intact. Psych: affect and mood appropriate, normal interaction, good eye contact. FHT: NST today showed a heart tracing 125 beats per baseline, moderate variability, accelerations present, no decelerations. Category 1. [place]: Intermittent contractions, patient does not feel them. Plan: 39 weeks 3 days gestation. External cephalic version later today
[2021-05-10] MEDS ORDERED: ePHEDrine 50 MG/ML VIAL IVP ONE ×2 (14:56→15:06)
[2021-05-10] MEDS ORDERED: METOCLOPRAMIDE 10 MG/2 ML VIAL IVP PRN (15:18)
[2021-05-10] MEDS ORDERED: diphenhydrAMINE INJ 50 MG/ML VIAL IVP PRN (15:18)
[2021-05-10] MEDS ORDERED: NALBUPHINE 10 MG/ML AMP IVP PRN (15:18)
[2021-05-10] MEDS ORDERED: ONDANSETRON 4 MG/2 ML VIAL IVP PRN (15:18)
[2021-05-10] MEDS ORDERED: NALOXONE 0.4 MG/ML VIAL IVP PRN (15:18)
[2021-05-10] MEDS ORDERED: ePHEDrine 50 MG/ML VIAL IVP PRN (15:18)
[2021-05-10] MEDS ORDERED: ROPIVACAINE 0.2% 200 MG/100 ML BAG EP PRN (15:18)
--- NOTE | 2021-05-10 15:44 | MISCELLANEOUS PROVIDER NOTE ---
Miscellaneous Provider Note - - Note: Called to assist Dr. Torres with external cephalic version. Patient has multiparious. Complete breech presentation. Adequate fluids. Placenta left lateral. heart tones were obtained prior to the procedure. The baby was successfully turned to cephalic presentation. heart tones were obtained at the termination of the procedure were noted to be in the 130s. Please see complete dictation by Dr. Torres.
--- NOTE | 2021-05-10 19:54 | PROVIDER PROGRESS NOTE ---
Labor Progress Note - Uterine Monitoring Uterine Monitoring Mode: positive: External toco Uterine Resting Tone: positive: Soft - Monitoring Monitor Mode: positive: Doppler/auscultation Heart Rate Variability: positive: Moderate (6-25 bmp) Accelerations: positive: Present, 15x15 Decelerations: positive: None Strip Review: positive: Category I - Labor Progress Note Labor Progress Note/Additional Text: Care was transferred to nd at approximately 1600. This is a G6, P2 at 39 weeks 3 days who presented for scheduled induction of labor. The patient was found to be in breech presentation during labor. She is now postop day 0 status post successful external cephalic version. The patient desires continued induction of labor. Cervix was noted to be 2 cm. External monitoring currently category 1. No contractions noted. The patient desires to take a break and eat at this time. She was given the option to begin induction with Banuelos bulb and Pitocin now but the desires to eat prior. We'll start Pitocin at midnight. If patient is less than 4 cm in the a.m., will place Banuelos bulb. Plan discussed with patient and staff registered nurse.
[2021-05-11] MEDS: OXYTOCIN/SODIUM CHLORIDE 500 ML IV SCH (00:19)
[2021-05-11] MEDS: LACTATED RINGERS 1,000 ML IV SCH ×2 (00:55→11:29)
--- NOTE | 2021-05-11 10:11 | PROVIDER PROGRESS NOTE ---
Labor Progress Note - Monitoring Monitor Mode: positive: Spiral electrode Heart Rate Variability: positive: Moderate (6-25 bmp) Accelerations: positive: Present, 15x15 Decelerations: positive: None Strip Review: positive: Category I - Vaginal Exam Dilation (in cm): 2 Effacement (%): 50 Station: -3 Cervical Position: Posterior - Labor Progress Note Labor Progress Note/Additional Text: 30-year-old G6, P2 at 39 weeks 4 days admitted for induction of labor. Patient has been slow to progress overnight. I attempted a Banuelos bulb placement however the baby was noted to be high. Cephalic presentation was again confirmed by ultrasound. We discussed attempt at Banuelos bulb placement versus rupture of membranes. The patient we discussed the risk of rupture of membranes which include cord prolapse and the need for urgent section. The patient understood also understands that if the baby turns to breech presentation she will again need a section. She is opted for rupture of membranes. AROM with clear fluid noted. FSE placed. Plan to titrate Pitocin per protocol. Strip currently category 1.
--- NOTE | 2021-05-11 12:29 | CONSULTATION NOTE ---
Consultation Report: Called to room after artificial ROM and request for pain control. Epidural test dose negative (3cc 2%lido w/epi). Dosed with 10cc 0.2% Ropi after 5 mins. Pump started at 10cc Q 50 mins. Pt states good relief from contraction pain. Will continue to follow.
--- NOTE | 2021-05-11 14:41 | PROVIDER PROGRESS NOTE ---
Labor Progress Note - Uterine Monitoring Uterine Monitoring Mode: positive: External toco Contraction Frequency (min/apart): 2-3 - Monitoring Monitor Mode: positive: Spiral electrode Heart Rate Baseline: 120 Heart Rate Variability: positive: Moderate (6-25 bmp) Accelerations: positive: Present, 15x15 Decelerations: positive: Variable, Intermittent (<50% x20 min) Strip Review: positive: Category II - Vaginal Exam Dilation (in cm): 4 Effacement (%): 75 Station: -2 Cervical Position: Midposition - Labor Progress Note Labor Progress Note/Additional Text: 30-year-old G6, P2 at 39 weeks 4 days admitted for induction of labor. Induction of labor- Patient has progressed to 4/75 and -2. Cephalic. Pitocin titration in progress. Contractions noted regularly q. 3-5 minutes. Intermittent variable decelerations. Will reposition and resuscitate. We will continue Pitocin titration. Plan discussed with patient.
--- NOTE | 2021-05-11 15:25 | PROVIDER PROGRESS NOTE ---
Labor Progress Note - Uterine Monitoring Uterine Monitoring Mode: positive: External toco Contraction Frequency (min/apart): 2-3 - Monitoring Monitor Mode: positive: Spiral electrode Heart Rate Baseline: 120 Heart Rate Variability: positive: Moderate (6-25 bmp) Accelerations: positive: Present, 15x15 Decelerations: positive: Variable, Intermittent (<50% x20 min) Strip Review: positive: Category II - Vaginal Exam Dilation (in cm): 9 Effacement (%): 100 Station: -1 Cervical Position: Midposition - Labor Progress Note Labor Progress Note/Additional Text: Anterior lip/complete and -1. Intermittent variable decelerations noted. Will reposition and give fluid bolus to resuscitate. Anticipate delivery soon.
[2021-05-11] MEDS ORDERED: HYDROcod/ACETAM 5/325 MG TABLET PO PRN (16:09)
[2021-05-11] MEDS ORDERED: SIMETHICONE CHEW 80 MG TABLET PO PRN (16:09)
--- NOTE | 2021-05-11 16:22 | DELIVERY NOTE ---
Delivery Note - Labor Labor: positive: Induced by oxytocin - Delivery Method Delivery Method: positive: Spontaneous vaginal delivery - Cervical Ripening Method Cervical Ripening Method: positive: Oxytocin - Presentation Presentation: positive: Vertex - Nuchal Cord Nuchal Cord: positive: None - Anesthetic Anesthetic Type: - Amniotic Fluid Description Amniotic Fluid Description: positive: Clear - Episiotomy Type Episiotomy Type: positive: None - Laceration Laceration: positive: None - Delivery Outcome Delivery Outcome: positive: Livebirth - : positive: Placed in direct skin contact with mother sex: positive: Male - Placenta Placenta: positive: Intact - Estimated Blood Loss Estimated Blood Loss (in cc): 250 - Post Delivery Events Post Delivery Events: positive: No post delivery events - Delivery Comments (Free Text/Narrative) Delivery Comments (Free Text/Narrative): Patient progressed to complete cervical dilation. She was noted to have intermittent variable decelerations just prior. The patient was placed in dorsal lithotomy position. The head delivered with maternal pushing in CARLA position. The anterior shoulder delivered without difficulty followed subsequently by the posterior shoulder and the remainder of the baby. Cord Clamping was delayed for 1 minute as the baby was vigorous at the time of delivery. The cord was doubly clamped and cut and the baby placed on the maternal chest. APGARS were reported as 8 at 1 minute and 9 at 5 minutes. A cord segment was obtained for cord gases. Cord blood was obtained. The placenta was delivered with fundal massage. The fundus was noted to be firm with delivery of the placenta dark-colored blood and clots were noted. Approximately 25% of the placenta appeared abrupted. With evaluation of the perineum no lacerations were noted. The patient remained in stable condition.
[2021-05-11] MEDS ORDERED: LACTATED RINGERS 1,000 ML IV SCH (17:00)
[2021-05-11] MEDS: ACETAMINOPHEN 325 MG TABLET PO PRN (20:15)
[2021-05-11] MEDS: IBUPROFEN 800 MG TABLET PO SCH (22:14)
[2021-05-12] MEDS: ACETAMINOPHEN 325 MG TABLET PO PRN ×2 (02:30→08:13)
[2021-05-12] MEDS: IBUPROFEN 800 MG TABLET PO SCH (06:07)
[2021-05-12 08:13] LABS: BASOPHILS # (AUTO) 0.1 10^3/uL (0.0-0.1); BASOPHILS % (AUTO) 0.3 %; EOSINOPHILS # (AUTO) 0.3 10^3/uL (0.0-0.7); EOSINOPHILS % (AUTO) 2.1 %; HCT - HEMATOCRIT 30.9 % (37.0-47.0); HGB - HEMOGLOBIN 10.2 g/dL (12.0-16.0); LYMPHOCYTES # (AUTO) 3.1 10^3/uL (1.5-3.5); LYMPHOCYTES % (AUTO) 20.9 %; MEAN CORPUSCULAR HEMOGLOBIN 32.7 pg (27.0-31.0); MEAN PLATELET VOLUME 10.4 fL (7.9-10.8); MONOCYTES # (AUTO) 0.2 10^3/uL (0.0-1.0); MONOCYTES % (AUTO) 1.1 %; NEUTROPHILS # (AUTO) 11.2 10^3/uL (1.5-6.6); NEUTROPHILS % (AUTO) 74.9 %; PLT - PLATELET COUNT 282 10^3/uL (130-450); RED BLOOD COUNT 3.12 10^6/uL (4.20-5.40)
[2021-05-12] MEDS ORDERED: RHO(D) IMMUNE GLOBULIN 300 MCG SYRINGE IVP ONE (08:24)
--- NOTE | 2021-05-12 11:26 | Discharge Plan ---
Discharge Plan Problem Reviewed?: Yes Disposition: Home, Self Care Condition: Stable Prescriptions: HYDROcod/ACETAM 5/325 [[place] 5/325] 1 tab PO Q4HR PRN #10 tablet PRN Reason: Pain Ibuprofen [Motrin] 800 mg PO Q8HR #30 tablet Diet: Regular Activity Restrictions: No Restrictions Shower Restrictions: No Driving Restrictions: No Instruction Topics: Vaginal After, Childbirth Breast Care, Depression Additional Instructions or Follow Up instructions: Follow-up for visit in 2 to 3 weeks. Return to ED for headaches, vision changes, right upper quadrant abdominal pain or epigastric pain or heavy vaginal bleeding No Smoking: If you smoke, Please STOP! Call for help. Follow-up with: Francisco Torres MD [Provider Admit Priv/Credential] -
--- NOTE | 2021-05-12 11:36 | DISCHARGE SUMMARY ---
Discharge Summary Admit Date: 05/09/21 Discharge Date: 05/12/21 Discharging Provider: Montez Powell MD Primary Care Provider: Francisco Torres MD Condition at Discharge: Stable Discharge Disposition: 01 Home, Self Care Discharge Facility [facility]: [facility] - DIAGNOSES Admission Diagnoses: Induction of labor Discharge Diagnoses with Status of Each Condition: Status Post vaginal delivery - HOSPITAL COURSE Hospital Course: This is a 30-year-old G6, P3 day 1 status post spontaneous vaginal delivery. The patient was admitted at 39 weeks for scheduled induction of labor. She was found to be breech presentation during induction of labor. She underwent a successful external cephalic version by Dr. Francisco Torres. Induction of labor then continued. She had an uncomplicated spontaneous vaginal delivery. She met milestones and was stable for discharge on day 1. - ALLERGIES Allergies/Adverse Reactions: Allergies Allergy/AdvReac Type Severity Reaction Status Date / Time aspirin Allergy Mild Hives Verified 03/03/21 00:14 divalproex sodium Allergy Hives Verified 03/03/21 00:14 [From Depakote] - MEDICATIONS Home Medications: Ambulatory Orders Medication Instructions Recorded Confirmed Amox/Clav 875/125 [Augmentin 1 tablet PO Q12H 03/03/21 03/03/21 875/125 Tab] Ferrous Sulfate 325 mg PO DAILY 03/03/21 03/03/21 Ibuprofen [Motrin] 800 mg PO Q8HR #30 tablet 05/12/21 - PHYSICAL EXAM AT DISCHARGE General Appearance: positive: No acute distress Abdomen: positive: Non-tender, Other (Fundus firm, below umbilicus) - LABS Result Diagrams: 05/12/21 08:07 - FOLLOW UP Follow Up: Follow-up in 2 to 3 weeks with Francisco Torres MD
[2021-05-12 12:10] VITALS: BP 124/77
== END 2021-05-12 12:10 | disposition home or self-care (01) | DRG 807 ==
LOC: WFO 07:13 → FBP 07:17 → WFO 10:18 → FBP 10:19
PROVIDERS: ADMIT Obstetrics & Gynecology; ATTEND Obstetrics & Gynecology
PROC: 3E033VJ Introduction of Other Hormone into Peripheral Vein, Percutaneous Approach (ICD-10-PCS; 2021-05-09)
PROC: 10S0XZZ Reposition Products of Conception, External Approach (ICD-10-PCS; principal; 2021-05-10)
PROC: 10E0XZZ Delivery of Products of Conception, External Approach (ICD-10-PCS; 2021-05-11)
PROC: 10907ZC Drainage of Amniotic Fluid, Therapeutic from Products of Conception, Via Natural or Artificial Opening (ICD-10-PCS; 2021-05-11)
DX: O32.1XX0 Maternal care for breech presentation, not applicable or unspecified (principal); Z37.0 Single live birth; Z3A.39 39 weeks gestation of pregnancy; O99.814 Abnormal glucose complicating childbirth; O99.214 Obesity complicating childbirth; O99.334 Smoking (tobacco) complicating childbirth; O75.4 Other complications of obstetric surgery and procedures; I95.81 Postprocedural hypotension
CPT/HCPCS: 36415; 80306; 83033; 83036; 85025; 86850; 86900; 86901; 87635; 99406; A9270; J7120; 86769

== ENCOUNTER 2021-06-05 01:59 | Emergency (ER) | payer MEDICAID ==
[2021-06-05] MEDS ORDERED: fentaNYL 100 MCG/2 ML VIAL IVP STA (02:32)
[2021-06-05] MEDS ORDERED: KETAMINE 500 MG/10 ML VIAL IVP STA (02:43)
--- NOTE | 2021-06-05 02:45 | ED Physician Documentation ---
History of Present Illness - Stated complaint Stated Complaint: L SHOULDER INJ - Chief complaint Chief Complaint: Trauma Ext - History obtained from History obtained from: Patient - Additonal information Additional information: 30yF with pmh recurrent shoulder dislocations with psh orthoscopic surgery at a young age p/w L shoulder dislocation that she reports occurred while putting her jacket on tonight. patient has apparent ecchymosis around the neck and swelling/abrasion to upper lip, abrasions to knuckles but denies drug or alcohol abuse or physical altercation. states she feels safe at home. Review of Systems Musculoskeletal: reports: Extremity pain, Joint pain. 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 : None HEENT: None Psych: Depression, Post traumatic stress disorder Musculoskeletal: Other Derm: None - Past Surgical History Past Surgical History: Yes Ortho: Other - Present Medications Home Medications: Ambulatory Orders Medication Instructions Recorded Confirmed No Known Home Medications 06/05/21 06/05/21 - Allergies Allergies/Adverse Reactions: Allergies Allergy/AdvReac Type Severity Reaction Status Date / Time aspirin Allergy Mild Hives Verified 06/05/21 02:19 divalproex sodium Allergy Hives Verified 06/05/21 02:19 [From Depakote] - Social History Does the pt smoke?: Yes Smoking Status: Current every day smoker Does the pt drink ETOH?: No Does the pt have substance abuse?: Yes - Immunizations Immunizations are current?: Yes - POLST Patient has POLST: No PD ED PE NORMAL - Vitals Vital signs reviewed: Yes - General General: Alert and oriented X 3, No acute distress, Well developed/nourished - HEENT HEENT: Atraumatic, PERRL, EOMI, Pharynx benign, Dentition benign - Neck Neck: Other (petechiae/subtle ecchymosis to anterior neck. good air flow on neck auscultation. no respiratory distress) - Cardiac Cardiac: RRR - Respiratory Respiratory: No respiratory distress, Clear bilaterally - Derm Derm: Normal color, Warm and dry, Other (abrasions to upper lip and knuckles) - Neuro Neuro: Alert and oriented X 3, No motor deficit, No sensory deficit - Psych Psych: Normal mood, Normal affect Results - Vitals Vitals: Vital Signs - 24 hr 06/05/21 06/05/21 06/05/21 02:08 03:00 03:02 Temperature 36.4 C L Heart Rate 85 77 90 Respiratory 16 18 16 Rate Blood Pressure 122/87 H 122/94 H O2 Saturation 100 100 06/05/21 06/05/21 06/05/21 03:06 03:10 03:18 Temperature Heart Rate 103 H 86 Respiratory 15 20 15 Rate Blood Pressure 114/84 H 125/87 H 133/95 H O2 Saturation 100 100 100 06/05/21 06/05/21 06/05/21 03:23 03:26 03:27 Temperature Heart Rate 92 93 89 Respiratory 14 17 14 Rate Blood Pressure 125/89 H 118/79 137/90 H O2 Saturation 100 100 100 06/05/21 06/05/21 06/05/21 03:42 03:51 04:12 Temperature Heart Rate 77 79 82 Respiratory 15 15 10 L Rate Blood Pressure 135/98 H 139/94 H 142/98 H O2 Saturation 100 100 100 06/05/21 06/05/21 04:18 05:02 Temperature 36.4 C L Heart Rate 82 72 Respiratory 18 18 Rate Blood Pressure 142/98 H 138/85 H O2 Saturation 100 100 Oxygen O2 Source Room air Procedures - Reduction Body part reduced: Left, Humerus Fracture or dislocation: Dislocation (anterior) Shoulder reduction technique: Traction - counter tract Reduction aftercare: NV intact, Xray confirms reduction, Alignment improved, Sling, Patient tolerated well - Procedural sedation Sedation prep: Informed consent, Time out completed, PE performed, ASA 1 - hea lthy Sedation Medications: propofol Mallampati classification: I Patient status during sedation: Drowsy, Responds to verbal, Vitals remained stable, Maintained airway, Recovered uneventfully Sedation recovery: Recovered uneventfully Time in sedation (Minutes): 15 PD MEDICAL DECISION MAKING - ED course ED course: 30yF with recurrent shoulder dislocation p/w L shoulder deformity today, found to be anterior dislocation. reduced under conscious sedation with fentanyl/propofol without difficulty. Patient now back to baseline. return precautions given. plan to f/u with orthopedics. Departure - Departure Disposition: 01 Home, Self Care Clinical Impression: Shoulder dislocation Condition: Good Instructions: Sedation Procedural, ED Dislocation Shoulder Redu Follow-Up: Samuel Abdullahi MD [Provider Admit Priv/Credential] - Comments: You were seen for a shoulder dislocation and received conscious sedation. Please wear your sling until you follow up with orthopedics in 1 week. return to the ed if you have numbness or weakness in the hand, discoloration, any other new or worsening symptoms or other concerns. Discharge Date/Time: 06/05/21 05:05
[2021-06-05] MEDS ORDERED: PROPOFOL 200 MG/20 ML VIAL IVP STA (02:51)
[2021-06-05 05:05] VITALS: BP 138/85
--- NOTE | 2021-06-05 10:43 | XRAY Report ---
PROCEDURE: Shoulder 2 View LT INDICATIONS: L shoulder dislocation TECHNIQUE: 3 views of the shoulder were acquired. COMPARISON: 03/03/2021. FINDINGS: Bones: There is anterior dislocation of the left glenohumeral joint. Mild flattening of the superolat eral humeral head is demonstrated compatible with a Hill-Sachs impaction fracture. No suspicious bony lesions. Visualized ribs appear intact. Soft tissues: No suspicious soft tissue calcifications. IMPRESSION: 1. Anterior dislocation of the left glenohumeral joint. 2. Flattening of the humeral head compatible with a Hill-Sachs lesion. Reviewed by: Manfred Bustamante MD on 06/05/2021 9:42 AM [facility] Approved by: Manfred Bustamante MD on 06/05/2021 9:42 AM [facility] Station ID: [id number]
--- NOTE | 2021-06-05 10:44 | XRAY Report ---
PROCEDURE: Shoulder 2 View LT INDICATIONS: shoulder post reduction TECHNIQUE: 3 views of the shoulder were acquired. COMPARISON: 06/05/2021. FINDINGS: Bones: There is interval reduction of the left glenohumeral joint. No displaced fracture identified. The Hill-Sachs lesion seen on prior study is not well visualized on the current study. No suspicious bony lesions. Visualized ribs appear intact. Soft tissues: No suspicious soft tissue calcifications. IMPRESSION: 1. Interval reduction of the left glenohumeral joint. Reviewed by: Manfred Bustamante MD on 06/05/2021 9:43 AM [facility] Approved by: Manfred Bustamante MD on 06/05/2021 9:43 AM [facility] Station ID: [id number]
== END 2021-06-05 05:05 | disposition home or self-care (01) ==
LOC: ED 01:59
DX: M24.412 Recurrent dislocation, left shoulder (principal); X50.9XXA Other and unspecified overexertion or strenuous movements or postures, initial encounter; Y93.89 Activity, other specified; S10.93XA Contusion of unspecified part of neck, initial encounter; S00.511A Abrasion of lip, initial encounter; S60.512A Abrasion of left hand, initial encounter; S60.511A Abrasion of right hand, initial encounter; X58.XXXA Exposure to other specified factors, initial encounter; F17.200 Nicotine dependence, unspecified, uncomplicated
CPT/HCPCS: 94770; 99152

== ENCOUNTER 2021-06-27 08:00 | Outpatient (CLI) | payer MEDICAID | END 2021-06-27 23:59 | LOC: LAB 08:00 | PROVIDERS: ATTEND Physician Assistant Medical | DX: R39.9 Unspecified symptoms and signs involving the genitourinary system (principal) | CPT/HCPCS: 87086; 87181 ==

== ENCOUNTER 2022-04-21 13:14 | Emergency (ER) | payer MEDICAID | END 2022-04-21 15:04 | disposition left against medical advice (07) | LOC: ED 13:14 | DX: Z53.29 Procedure and treatment not carried out because of patient's decision for other reasons (principal) ==

== ENCOUNTER 2022-09-02 15:30 | Outpatient (CLI) | payer MEDICAID | END 2022-09-02 15:31 | disposition EMS.NT | LOC: EMS 15:30 | DX: R68.89 Other general symptoms and signs (principal) ==

== ENCOUNTER 2022-09-06 00:44 | Emergency (ER) | payer MEDICAID ==
[2022-09-06] MEDS ORDERED: KETOROLAC 15 MG/ML VIAL IVP STA (01:08)
[2022-09-06] MEDS ORDERED: SODIUM CHLORIDE 0.9% 1,000 ML IV STA (01:08)
[2022-09-06] MEDS ORDERED: METOCLOPRAMIDE 10 MG/2 ML VIAL IVP STA (01:09)
[2022-09-06] MEDS ORDERED: diphenhydrAMINE INJ 50 MG/ML VIAL IVP STA (01:09)
[2022-09-06] MEDS ORDERED: ACETAMINOPHEN 325 MG TABLET PO STA (01:09)
--- NOTE | 2022-09-06 01:12 | ED Physician Documentation ---
PD HPI HEADACHE - Stated complaint Stated Complaint: MIGRAINE/BACK PX - Chief complaint Chief Complaint: Neuro - History obtained from History obtained from: Patient - History of Present Illness Timing - onset: How many weeks ago (2) Timing - duration: Weeks (2) Timing - details: Gradual onset, Still present, Constant Pain level max: 10 Pain level now: 10 Location: Front Quality: Aching - Additional information Additional information: also with body aches, chills, recent viral illness. 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 : None HEENT: None Psych: Depression, Post traumatic stress disorder Musculoskeletal: Other Derm: None - Past Surgical History Past Surgical History: Yes Ortho: Other - Present Medications Home Medications: Ambulatory Orders Medication Instructions Recorded Confirmed No Known Home Medications 06/05/21 09/06/22 - Allergies Allergies/Adverse Reactions: Allergies Allergy/AdvReac Type Severity Reaction Status Date / Time aspirin Allergy Mild Hives Verified 09/06/22 00:49 divalproex sodium Allergy Hives Verified 09/06/22 00:49 [From Depakote] - Social History Does the pt smoke?: Yes Smoking Status: Current every day smoker Does the pt drink ETOH?: No Does the pt have substance abuse?: No Substance Use and Type: Marijuana, CBD oil / Products - Immunizations Immunizations are current?: Yes - POLST Patient has POLST: No PD ED PE NORMAL - Vitals Vital signs reviewed: Yes - General General: Alert and oriented X 3, No acute distress, Well developed/nourished - HEENT HEENT: Atraumatic, PERRL, EOMI, Moist mucous membranes, Pharynx benign - Neck Neck: Supple, no meningeal sign - Derm Derm: Normal color, Warm and dry - Neuro Neuro: Alert and oriented X 3, planner chief 2-12 intact, No motor deficit, No sensory deficit, Normal speech Eye Opening: Spontaneous Motor: Obeys Commands Verbal: Oriented GCS Score: 15 - Psych Psych: Other (anxious affect) Results - Vitals Vitals: Vital Signs - 24 hr 09/06/22 00:49 Temperature 36.9 C Heart Rate 73 Respiratory 16 Rate Blood Pressure 112/77 O2 Saturation 100 Oxygen O2 Source Room air PD Medical Decision Making - ED course ED course: 32yF with pmh migraines p/w 2 weeks of constant headache with nbnb n/v. endorses subjective fever/chills, body aches. I suspect viral etiology given her constellation of symptoms similar to several other patients in the past couple days with likely viral gastroenteritis. Plan to treat symptomatically and reevaluate. Patient feeling significantly better with headache resolved. She was resting quietly in bed and easily arousable, requesting to go home. Symptomatic care discussed and return precautions given. Plan to follow-up with primary care provider. Departure - Departure Disposition: 01 Home, Self Care Clinical Impression: Migraine Condition: Good Instructions: ED Headache Migraine Comments: You were seen in the emergency department for headache and received a cocktail of migraine medications. Please follow-up with your primary care provider and return to the emergency department if you have any new or worsening symptoms or other concerns.
[2022-09-06 02:17] VITALS: BP 106/70
== END 2022-09-06 02:16 | disposition home or self-care (01) ==
LOC: ED 00:44
DX: G43.909 Migraine, unspecified, not intractable, without status migrainosus (principal); F17.200 Nicotine dependence, unspecified, uncomplicated
CPT/HCPCS: 96361; 96374; 99283; 99284; A9270; J1200; J2765; 87633

== ENCOUNTER 2023-06-15 10:47 | Emergency (ER) | payer MEDICAID ==
[2023-06-15] MEDS ORDERED: KETOROLAC 60 MG/2 ML VIAL IM STA (11:56)
[2023-06-15] MEDS ORDERED: METOCLOPRAMIDE 10 MG/2 ML VIAL IM STA (11:56)
--- NOTE | 2023-06-15 11:56 | ED Physician Documentation ---
PD HPI HEADACHE - Stated complaint Stated Complaint: VOMITING/HEAD PX - Chief complaint Chief Complaint: Neuro - History obtained from History obtained from: Patient - Additional information Additional information: Chief complaint from patient: "My transactional attorney wanted me to get checked out" 32-year-old woman accidentally hit her head with her own car door while opening it 3 weeks ago and has had persistent headaches ever since with occasional vomiting. She feels "out of it." She says she does not have any history of primary headache syndrome but was seen earlier this year for "migraine." She admits to having used methamphetamines and fentanyl recently. 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 : None HEENT: None Psych: Depression, Post traumatic stress disorder Musculoskeletal: Other Derm: None - Past Surgical History Past Surgical History: Yes Ortho: Other - Present Medications Home Medications: Ambulatory Orders Medication Instructions Recorded Confirmed No Known Home Medications 06/05/21 09/06/22 - Allergies Allergies/Adverse Reactions: Allergies Allergy/AdvReac Type Severity Reaction Status Date / Time aspirin Allergy Mild Hives Verified 06/15/23 11:05 divalproex sodium Allergy Hives Verified 06/15/23 11:05 [From Depakote] - Social History Does the pt smoke?: Yes Smoking Status: Current every day smoker Does the pt drink ETOH?: No Does the pt have substance abuse?: Yes Substance Use and Type: Meth, Other (Fentanyl) - Immunizations Immunizations are current?: Yes - POLST Patient has POLST: No PD ED PE NORMAL - Vitals Vital signs reviewed: Yes - General General: Alert and oriented X 3, No acute distress - HEENT HEENT: PERRL, EOMI - Neck Neck: Supple, no meningeal sign, No bony TTP - Neuro Neuro: Alert and oriented X 3, Normal speech Eye Opening: Spontaneous Motor: Obeys Commands Verbal: Oriented GCS Score: 15 - Psych Psych: Normal mood, Normal affect Results - Vitals Vitals: Vital Signs - 24 hr 06/15/23 06/15/23 11:02 13:12 Temperature 36.7 C Heart Rate 108 H 86 Respiratory 20 20 Rate Blood Pressure 126/84 H 108/54 L O2 Saturation 100 99 Oxygen O2 Source Room air PD Medical Decision Making - ED course ED course: 32-year-old woman with persistent headache for 3 weeks after head injury. Headaches are severe but she appears well with no neck stiffness, fevers. She has an ongoing problem with drug abuse but declines to talk to social work or any other intervention there. No IV drug abuse. Head CT is ordered and she is administered IM Toradol and Reglan. Departure - Departure Disposition: 01 Home, Self Care Clinical Impression: Substance abuse Closed head injury Qualifiers: Encounter type: initial encounter Qualified Code(s): S09.90XA - Unspecified injury of head, initial encounter Condition: Good Record reviewed to determine appropriate education?: Yes Instructions: ED Head Injury Closed Comments: The head CT has not been formally read by the radiologist when you asked to be discharged. We will call you if there is a pertinent positive finding. Return if worse. Follow-up with your primary care physician, next available appointment. We think you would benefit from admission for detoxification and/or rehabilitation from alcohol and/or drugs. The closest facility that does this is in [place]. It is: [facility] [address] [place] [address] Call them at [phone] to arrange an intake appointment. Forms: PCP List
[2023-06-15 13:19] VITALS: BP 108/54; O2SAT 99
--- NOTE | 2023-06-15 14:43 | CT Report ---
PROCEDURE: HEAD WO INDICATIONS: head inj TECHNIQUE: Noncontrast 4.5 mm thick angled axial sections acquired from the foramen magnum to the vertex. For r adiation dose reduction, the following was used: automated exposure control, adjustment of mA and/or kV according to patient size. COMPARISON: None. FINDINGS: Image quality: Excellent. CSF spaces: Basal cisterns are patent. No extra-axial fluid collections. Ventricles are normal in size and shape. Brain: No midline shift. No intracranial masses or hemorrhage. Tran-white matter interface is norm al. Skull and face: Calvarium and visualized facial bones are intact, without suspicious lesions. Sinuses: Small air-fluid level in the right sphenoid sinus. IMPRESSION: 1. No acute intracranial process. 2. Mild right sphenoid sinusitis. Reviewed by: Jesus Manuel Knight MD on 06/15/2023 2:42 PM PST Approved by: Jesus Manuel Knight MD on 06/15/2023 2:42 PM PST Station ID: [id number]
== END 2023-06-15 14:16 | disposition home or self-care (01) ==
LOC: ED 10:47
DX: S09.90XA Unspecified injury of head, initial encounter (principal); W22.8XXA Striking against or struck by other objects, initial encounter; J32.3 Chronic sphenoidal sinusitis; F19.10 Other psychoactive substance abuse, uncomplicated; F17.200 Nicotine dependence, unspecified, uncomplicated
CPT/HCPCS: 70450; 96372; 99283; 99284; J2765

== ENCOUNTER 2023-12-01 19:42 | Emergency (ER) | payer MEDICAID ==
[2023-12-01 20:16] VITALS: BP 104/72; O2SAT 98
[2023-12-01 20:25] LABS: BILIRUBIN,URINE SMALL (NEGATIVE); GLUCOSE, URINE (UA) NEGATIVE (NEGATIVE); KETONES,URINE (UA) TRACE mg/dL (NEGATIVE); LEUKOCYTE ESTERASE, URINE NEGATIVE (NEGATIVE); NITRITE,URINE POSITIVE (NEGATIVE); OCCULT BLOOD,URINE NEGATIVE (NEGATIVE); PROTEIN,URINE NEGATIVE (NEGATIVE); UROBILINOGEN,URINE 0.2 (NORMAL) E.U./dL (NORMAL)
--- NOTE | 2023-12-01 20:25 | ED Physician Documentation ---
History of Present Illness - Stated complaint Stated Complaint: - Chief complaint Chief Complaint: UTI - History obtained from History obtained from: Patient - Additonal information Additional information: 33yF with pmh prior uti/pyelo p/w constant aching gradual onset BL flank pain over past few days with tmax 99.9 orally today along with new onset nbnb n/v and nonbloody diarrhea today. denies dysuria, increased frequency or hematuria but the flank pain feels like prior utis. 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 : Other HEENT: None Psych: Depression, Post traumatic stress disorder Musculoskeletal: Other Derm: None - Past Surgical History Past Surgical History: Yes Ortho: Other - Present Medications Home Medications: Ambulatory Orders Medication Instructions Recorded Confirmed Cefpodoxime Proxetil [Vantin] 100 mg PO Q12H #14 tablet 12/01/23 Ondansetron Odt [Zofran Odt] 4 mg TL Q6H PRN #10 tablet 12/01/23 - Allergies Allergies/Adverse Reactions: Allergies Allergy/AdvReac Type Severity Reaction Status Date / Time aspirin Allergy Mild Hives Verified 12/01/23 20:07 divalproex sodium Allergy Hives Verified 12/01/23 20:07 [From Depakote] - Social History Does the pt smoke?: Yes Smoking Status: Current every day smoker Does the pt drink ETOH?: No Does the pt have substance abuse?: Yes Substance Use and Type: Other - Immunizations Immunizations are current?: Yes - POLST Patient has POLST: No PD ED PE NORMAL - Vitals Vital signs reviewed: Yes - General General: Alert and oriented X 3, No acute distress, Well developed/nourished - HEENT HEENT: Atraumatic, PERRL, EOMI, Moist mucous membranes, Pharynx benign - Neck Neck: Supple, no meningeal sign - Cardiac Cardiac: RRR - Respiratory Respiratory: No respiratory distress, Clear bilaterally - Abdomen Abdomen: Non tender, Non distended - Back Back: No CVA TTP - Derm Derm: Normal color, Warm and dry - Neuro Neuro: No motor deficit, No sensory deficit Results - Vitals Vitals: Vital Signs - 24 hr 12/01/23 20:02 Temperature 36.8 C Heart Rate 110 H Respiratory 18 Rate Blood Pressure 104/72 O2 Saturation 98 Oxygen O2 Source Room air - Labs Labs: Laboratory Tests 12/01/23 12/01/23 20:15 20:15 Urine Color YELLOW Urine Clarity HAZY Urine pH 6.0 Ur Specific [place] >=1.030 H Urine Protein NEGATIVE Urine Glucose (UA) NEGATIVE Urine Ketones TRACE Urine Occult Blood NEGATIVE Urine Nitrite POSITIVE H Urine Bilirubin SMALL H Urine Urobilinogen 0.2 (NORMAL) Ur Leukocyte Esterase NEGATIVE Urine RBC 0-5 Urine WBC 4-5 Ur Squamous Epith Cells MOD Squamous H Urine Crystals 26-50 Uric Acid Urine Bacteria Many H Urine Mucus Marked Strands Urine Culture Comments NOT INDICATED Urine HCG, Qual NEGATIVE PD Medical Decision Making - ED course ED course: 33yF p/w BL flank pain X few days and n/v/d today. u/a and hcg ordered. u/a positive but patient left prior to discussing results. staff editor will call to let her know antibiotics and zofran sent to pharmacy. Departure - Departure Disposition: 01 Home, Self Care Clinical Impression: Nausea and vomiting, Diarrhea, UTI (urinary tract infection) Condition: Stable Instructions: ED Nausea Vomiting Prescriptions: Cefpodoxime Proxetil [Vantin] 100 mg PO Q12H #14 tablet Ondansetron Odt [Zofran Odt] 4 mg TL Q6H PRN #10 tablet PRN Reason: Nausea / Vomiting Comments: You were seen in the emergency department for medical evaluation. Please follow-up with your primary care provider and return to the emergency department if you have any new or worsening symptoms or other concerns.
[2023-12-01 20:26] LABS: CLARITY,URINE HAZY (CLEAR); HCG UR QUAL NEGATIVE
[2023-12-01 20:38] LABS: BACTERIA,URINE Many /HPF (None Seen); CRYSTALS,URINE 26-50 Uric Acid /LPF; MUCUS,URINE Marked Strands; RBC,URINE 0-5 /HPF (0-5); SQUAMOUS EPITHELIAL CELL,UR MOD Squamous (<= Few)
== END 2023-12-01 21:26 | disposition home or self-care (01) ==
LOC: ED 19:42
DX: N39.0 Urinary tract infection, site not specified (principal); R11.2 Nausea with vomiting, unspecified; R19.7 Diarrhea, unspecified; F17.200 Nicotine dependence, unspecified, uncomplicated; Z87.440 Personal history of urinary (tract) infections
CPT/HCPCS: 81001; 81025; 87086; 99283

== ENCOUNTER 2024-02-24 08:08 | Emergency (ER) | payer MEDICAID ==
[2024-02-24 08:17] VITALS: BP 138/83; O2SAT 99
--- NOTE | 2024-02-24 08:19 | ED Physician Documentation ---
PD HPI FEMALE - Stated complaint Stated Complaint: FEMALE /BACK PX - Chief complaint Chief Complaint: UTI - History obtained from History obtained from: Patient - History of Present Illness Timing - onset: Today Timing - duration: Weeks (3) Timing - details: Gradual onset Pain level max: 7 Pain level max: 6 Associated symptoms: Back pain (Low back pain). No: Fever, Abdominal pain Contributing factors: No: - Additional information Additional information: Patient is a 33-year-old female who presents to the emergency department stating that she has had dysuria and urinary frequency with foul-smelling urine for the past 3 weeks. She tried to treated at home but the pain and burning with urination has continued to increase. No fevers or chills. No vomiting. Denies any possibility of . Denies any STI exposure. No changes in sexual partners. Worse with urination, she took Azo last night which did seem to help. 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 : Other HEENT: None Psych: Depression, Post traumatic stress disorder Musculoskeletal: Other Derm: None - Past Surgical History Past Surgical History: Yes Ortho: Other - Present Medications Home Medications: Ambulatory Orders Medication Instructions Recorded Confirmed Cefpodoxime Proxetil [Vantin] 100 mg PO Q12H #14 tablet 02/24/24 Phenazopyridine HCl [Pyridium] 200 mg PO TID PRN #6 tablet 02/24/24 - Allergies Allergies/Adverse Reactions: Allergies Allergy/AdvReac Type Severity Reaction Status Date / Time aspirin Allergy Mild Hives Verified 02/24/24 08:14 divalproex sodium Allergy Hives Verified 02/24/24 08:14 [From Depakote] - Social History Does the pt smoke?: Yes Smoking Status: Current every day smoker Does the pt drink ETOH?: No Does the pt have substance abuse?: Yes - Immunizations Immunizations are current?: Yes - POLST Patient has POLST: No PD ED PE NORMAL - Vitals Vital signs reviewed: Yes - General General: Alert and oriented X 3, No acute distress - HEENT HEENT: Moist mucous membranes - Neck Neck: Supple, no meningeal sign - Cardiac Cardiac: RRR, Strong equal pulses - Respiratory Respiratory: No respiratory distress, Clear bilaterally - Abdomen Abdomen: Soft, Non tender, Non distended - Back Back: No CVA TTP - Derm Derm: Warm and dry - Neuro Neuro: Alert and oriented X 3 - Psych Psych: Normal mood, Normal affect Results - Vitals Vitals: Vital Signs - 24 hr 02/24/24 08:12 Temperature 36.6 C Heart Rate 104 H Respiratory 12 Rate Blood Pressure 138/83 H O2 Saturation 99 Oxygen O2 Source Room air - Labs Labs: Laboratory Tests 02/24/24 08:29 Urine Color ORANGE Urine Clarity CLOUDY Urine pH Ur Specific [place] Urine Protein Urine Glucose (UA) Urine Ketones Urine Occult Blood Urine Nitrite Urine Bilirubin COLOR INTERFERENCE Urine Urobilinogen Ur Leukocyte Esterase Urine RBC 0-5 Urine WBC >25 H Ur Squamous Epith Cells RARE Squamous Urine Bacteria Few Ur Microscopic Review INDICATED Urine Culture Comments INDICATED Urine HCG, Qual NEGATIVE PD Medical Decision Making - ED course Complexity details: reviewed results, re-evaluated patient, considered differential, d/w patient ED course: Patient with a UTI. Denies any STI exposure. No vaginal bleeding or discharge. Will place on antibiotics for home. No CVA tenderness. No fevers. No evid ence of pyelonephritis. Patient counseled regarding signs and symptoms for which I believe and urgent re-evaluation would be necessary. Patient with good understanding of and agreement to plan and is comfortable going home at this time This document was made in part using voice recognition software. While efforts are made to proofread this document, sound alike and grammatical errors may occur. Departure - Departure Disposition: 01 Home, Self Care Clinical Impression: UTI (urinary tract infection) Qualifiers: Urinary tract infection type: acute cystitis Hematuria presence: without hematuria Qualified Code(s): N30.00 - Acute cystitis without hematuria Condition: Good Instructions: ED UTI Cystitis Female Follow-Up: your,doctor in 3-5 days if not better [Other] Prescriptions: Phenazopyridine HCl [Pyridium] 200 mg PO TID PRN #6 tablet PRN Reason: dysuria Cefpodoxime Proxetil [Vantin] 100 mg PO Q12H #14 tablet Comments: Your prescriptions were sent to [facility] in [place]. You are given your first dose of medication here today in the emergency department. Please take all antibiotics until gone even if you are feeling better. Please return if you worsen. You should start to notice improvement in the next 24 to 48 hours. If you fail to improve as expected, you may need further evaluation and workup for alternative causes of your symptoms. Discharge Date/Time: 02/24/24 08:42
[2024-02-24] MEDS: CEFPODOXIME PROXETIL 100 MG TABLET PO STA (08:33)
[2024-02-24] MEDS: PHENAZOPYRIDINE 100 MG TABLET PO STA (08:33)
[2024-02-24 08:35] LABS: CLARITY,URINE CLOUDY (CLEAR)
[2024-02-24 08:37] LABS: BILIRUBIN,URINE COLOR INTERFERENCE (NEGATIVE); HCG UR QUAL NEGATIVE
[2024-02-24 08:46] LABS: WBC,URINE >25 /HPF (0-5)
[2024-02-24 08:47] LABS: BACTERIA,URINE Few /HPF (None Seen); RBC,URINE 0-5 /HPF (0-5); SQUAMOUS EPITHELIAL CELL,UR RARE Squamous (<= Few)
== END 2024-02-24 08:42 | disposition home or self-care (01) ==
LOC: ED 08:08
DX: N30.00 Acute cystitis without hematuria (principal); F17.200 Nicotine dependence, unspecified, uncomplicated
CPT/HCPCS: 81001; 81025; 87086; 87181; 99283; A9270; 81003

== ENCOUNTER 2024-03-24 22:24 | Emergency (ER) | payer MEDICAID ==
[2024-03-24 22:39] VITALS: BP 163/104; O2SAT 98
--- NOTE | 2024-03-24 23:16 | ED Physician Documentation ---
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 : Other HEENT: None Psych: Depression, Post traumatic stress disorder Musculoskeletal: Other Derm: None - Past Surgical History Past Surgical History: Yes Ortho: Other - Present Medications Home Medications: Ambulatory Orders Medication Instructions Recorded Confirmed Cefpodoxime Proxetil [Vantin] 100 mg PO Q12H #14 tablet 02/24/24 Phenazopyridine HCl [Pyridium] 200 mg PO TID PRN #6 tablet 02/24/24 - Allergies Allergies/Adverse Reactions: Allergies Allergy/AdvReac Type Severity Reaction Status Date / Time aspirin Allergy Mild Hives Verified 03/24/24 22:28 divalproex sodium Allergy Hives Verified 03/24/24 22:28 [From [facility]] - Social History Does the pt smoke?: Yes Smoking Status: Current every day smoker Does the pt drink ETOH?: No Does the pt have substance abuse?: Yes - Immunizations Immunizations are current?: Yes - POLST Patient has POLST: No Results - Vitals Vitals: Vital Signs - 24 hr 03/24/24 22:28 Temperature 36.8 C Heart Rate 105 H Respiratory 16 Rate Blood Pressure 163/104 H O2 Saturation 98 Oxygen O2 Source Room air Departure - Departure
--- NOTE | 2024-03-24 23:17 | ED Physician Documentation ---
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 : Other HEENT: None Psych: Depression, Post traumatic stress disorder Musculoskeletal: Other Derm: None - Past Surgical History Past Surgical History: Yes Ortho: Other - Present Medications Home Medications: Ambulatory Orders Medication Instructions Recorded Confirmed Cefpodoxime Proxetil [Vantin] 100 mg PO Q12H #14 tablet 02/24/24 Phenazopyridine HCl [Pyridium] 200 mg PO TID PRN #6 tablet 02/24/24 - Allergies Allergies/Adverse Reactions: Allergies Allergy/AdvReac Type Severity Reaction Status Date / Time aspirin Allergy Mild Hives Verified 03/24/24 22:28 divalproex sodium Allergy Hives Verified 03/24/24 22:28 [From Depakote] - Social History Does the pt smoke?: Yes Smoking Status: Current every day smoker Does the pt drink ETOH?: No Does the pt have substance abuse?: Yes - Immunizations Immunizations are current?: Yes - POLST Patient has POLST: No Results - Vitals Vitals: Vital Signs - 24 hr 03/24/24 22:28 Temperature 36.8 C Heart Rate 105 H Respiratory 16 Rate Blood Pressure 163/104 H O2 Saturation 98 Oxygen O2 Source Room air Departure - Departure Forms: PCP List
== END 2024-03-24 23:19 | disposition left against medical advice (07) ==
LOC: ED 22:24
DX: Z53.21 Procedure and treatment not carried out due to patient leaving prior to being seen by health care provider (principal)

== ENCOUNTER 2024-03-25 01:18 | Emergency (ER) | payer MEDICAID ==
--- NOTE | 2024-03-25 01:58 | ED Physician Documentation ---
PD HPI UPPER EXT INJURY - Stated complaint Stated Complaint: DOG BITE - Chief complaint Chief Complaint: Ext Problem - History obtained from History obtained from: Patient - Additonal information Additional information: HPI from patient. 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 She was bitten to her right forearm (patient is right-hand dominant).She cannot say with confidence that the dog is up-to-date on its shots, but the dog can be observed for the next 10 days as it is her friend's pet. Patient denies numbness, weakness. She notes that the pain is worse with movement of her right hand or wrist. Patient says she is up-to-date on tetanus immunization. 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 : Other HEENT: None Psych: Depression, Post traumatic stress disorder Musculoskeletal: Other Derm: None - Past Surgical History Past Surgical History: Yes Ortho: Other - Present Medications Home Medications: Ambulatory Orders Medication Instructions Recorded Confirmed Cefpodoxime Proxetil [Vantin] 100 mg PO Q12H #14 tablet 02/24/24 Phenazopyridine HCl [Pyridium] 200 mg PO TID PRN #6 tablet 02/24/24 Amox/Clav 875/125 [Augmentin 1 tablet PO Q12H 10 Days #20 tablet 03/25/24 875/125 Tab] Oxycodone HCl/Acetaminophen 1 - 2 each PO Q6H PRN #14 tablet 03/25/24 [Percocet 5-325 mg Tablet] - Allergies Allergies/Adverse Reactions: Allergies Allergy/AdvReac Type Severity Reaction Status Date / Time aspirin Allergy Mild Hives Verified 03/25/24 01:25 divalproex sodium Allergy Hives Verified 03/25/24 01:25 [From Depakote] - Social History Does the pt smoke?: Yes Smoking Status: Current every day smoker Does the pt drink ETOH?: No Does the pt have substance abuse?: Yes - Immunizations Immunizations are current?: Yes - POLST Patient has POLST: No PD ED PE NORMAL - Vitals Vital signs reviewed: Yes - General General: Alert and oriented X 3, Well developed/nourished, Other (appears uncomfortable (painful distress)) PD ED PE EXPANDED - Extremities Extremities: Sensory intact (LTS intact in right hand, fingers and thumb), Vascular intact (brisk capillary refill in right fingertips. strong right radial pulse), Tendon intact (FROM right wrist although increased pain with full flexion or extension), Other (swelling, TTP of right forearm from proximal to mid forearm, predominantly dorsal and lateral aspects. There are multiple puncture wounds and lacerations with some extrusion of adipose tissue through a few of the lacerations) JEREMY UE/Hands Visual: 1 - laceration, swelling, tenderness Results - Vitals Vitals: Vital Signs - 24 hr 03/25/24 03/25/24 01:25 04:47 Temperature 36.8 C 36.8 C Heart Rate 98 81 Respiratory 16 16 Rate Blood Pressure 133/67 H 142/68 H O2 Saturation 98 99 Oxygen O2 Source Room air - Rads (name of study) right forearm xrays Relevant Findings:: Prelim report reviewed, See rad report PD Medical Decision Making - ED course Complexity details: reviewed results, re-evaluated patient, considered differential, d/w patient ED course: Patient is given 3 g IV Unasyn as well as 1 mg IV Dilaudid (with a repeat dose for a total of 2 mg), and 30 mg IV Toradol. With these interventions, the patient reports adequate relief of her pain. I discussed this case with Dr. Abdullahi (on-call orthopedic surgery for [facility]) regarding treatment and follow-up recommendations. He recommends NOT undertaking repair of any of the wounds at this time (can be reconsidered for delayed closure on follow-up/reevaluation) and have patient follow up within 1-2 days either in outpatient setting or else to return to ED for recheck. I have electronically submitted prescriptions for percocet and augmentin to patient's pharmacy of choice. I carefully reviewed return precautions with her (emphasis placed on both signs/symptoms of infection as well as compartment syndrome), and I instructed her to seek follow up within 1-2 days with orthopedic surgery or, if that cannot be arranged, to return to ED within said timeframe. Departure - Departure Disposition: 01 Home, Self Care Clinical Impression: Dog bite of forearm Condition: Good Instructions: ED Bite Dog, ED Compartment Syndrome At Risk For Follow-Up: Samuel Abdullahi MD [Provider Admit Priv/Credential] - Prescriptions: Amox/Clav 875/125 [Augmentin 875/125 Tab] 1 tablet PO Q12H 10 Days #20 tablet Oxycodone HCl/Acetaminophen [Percocet 5-325 mg Tablet] 1 - 2 each PO Q6H PRN #14 tablet PRN Reason: pain Comments: I have electronically submitted prescriptions for Augmentin (antibiotic) and Percocet (narcotic/opiate pain medication) to the [facility] pharmacy in [place]. I discussed your case with the on-call orthopedic surgeon for [facility] (Dr. Abdullahi). Following his recommendations, none of your wounds were closed (such as with stitches or tim) at this time. Closing the wounds tonight raises the risk for infection, and the amount of swelling would make closure very difficult. You will need to follow up within 1-2 days for recheck of the injury; the purpose of the reevaluation is to look for signs/symptoms of infection as well as compartment syndrome. As the swelling subsides, you might benefit from closure of one or more of the lacerations. Contact the orthopedic surgeon's office this morning when they open to arrange for follow up/reevaluation. The office information is within these discharge instructions. If they cannot accommodate follow-up within that timeframe, you should return to the emergency department for recheck of the wound. I am prescribing a short course of narcotic pain medication for you. These are potentially dangerous and addictive medications that should be used carefully. These medications may constipate you. Take an [id number]-nez-nqccvvo stool softener (docusate) twice daily with plenty of water while taking these medications. If you go 24 hours without a bowel movement, take [id number] miralax, per package instructions. Do not drink or drive while taking these medications. If you received narcotic or sedating medications while in the emergency department, do not drive for 24 hours. Store this medication in a safe, secure place and out of reach of children. It is a violation of federal law to give or sell this medication to another person or to use in a manner other than prescribed. The ED will not refill narcotic prescriptions, including prescriptions lost or stolen. To dispose of unwanted medications: 1. [facility] at [address] in [place] has a medication drop box. They accept prescription medications (in pill form) Sunday through Sunday 9:00 a.m. to 5:00 p.m. 2. [facility] [employer] [facility] accepts prescription medications (in pill form only) for disposal year round. Call for more information. 3. Contact the [facility] for the next [facility] sponsored prescription drug collection event. , [phone], or [phone]; Discharge Date/Time: 03/25/24 04:46
[2024-03-25] MEDS: HYDROmorphone 1 MG/ML CARPUJECT IVP STA ×2 (02:23→04:14)
[2024-03-25] MEDS: AMPICILLIN/SULBACTAM 3 GM in SODIUM CHLORIDE 0.9% MINIBAG 100 ML IV STA (02:23)
[2024-03-25] MEDS: lidocaine 1% 20 ML MDV SUBQ STA (02:30)
[2024-03-25] MEDS: KETOROLAC 30 MG/ML VIAL IVP STA (04:14)
[2024-03-25] MEDS: AMOX/CLAV 875 MG/125 MG TABLET PO STA (04:46)
[2024-03-25 04:52] VITALS: BP 142/68; O2SAT 99
--- NOTE | 2024-03-25 08:10 | XRAY Report ---
PROCEDURE: Forearm RT INDICATIONS: dog bite TECHNIQUE: 2 views of the forearm were acquired. COMPARISON: None. FINDINGS: Bones: No fractures or dislocations. No suspicious bony lesions. Soft tissues: Extensive soft tissue gas throughout the lateral and posterior forearm with some soft t issue gas present anteriorly. No radiopaque foreign bodies. IMPRESSION: No acute bony abnormality. Extensive soft tissue gas. Most of the gas is clearly superficial. However , recommend evaluating for possible necrotizing fasciitis. Findings are concordant with preliminary interpretation provided by [facility]. Reviewed by: Jesus Manuel Knight MD on 03/25/2024 8:08 AM PDT Approved by: Jesus Manuel Knight MD on 03/25/2024 8:08 AM PDT Station ID: [id number]
== END 2024-03-25 04:46 | disposition home or self-care (01) ==
LOC: ED 01:18
DX: S51.831A Puncture wound without foreign body of right forearm, initial encounter (principal); W54.0XXA Bitten by dog, initial encounter; F17.200 Nicotine dependence, unspecified, uncomplicated
CPT/HCPCS: 73090; 96365; 96375; 96376; 99283; 99284; J1170